=== PATIENT | female | born 1950 | race Caucasian/White ===

== ENCOUNTER 2017-02-22 17:06 | Inpatient (IN) | payer OTHER, BC ==
[~2017-02-22] VITALS: Ht 160 cm; Wt 55.0 kg
[~2017-02-22 17:06] MED LIST: LIALDA; MXZUNK
[2017-02-22] MEDS ORDERED: ONDANSETRON INJ 2 MG/ML 2 ML VIAL IV STA (17:24)
[2017-02-22] MEDS ORDERED: SODIUM CHLORIDE 0.9% 1000ML 1,000 ML IV STA ×3 (17:24→18:06)
[2017-02-22] MEDS ORDERED: MoRPHine SULFATE 4 MG/ML 1 ML CARP\\VIAL IV PRN (17:30)
[2017-02-22 17:36] LABS: BASO % 0.1 %; BASO ABS # 0.01 K/uL (0-0.2); COMPLETE YES; HEMATOCRIT 50.9 % (37-47); IG% 0.4 %; LYMPH % 6.3 %; LYMPH ABS # 0.82 K/uL (1.2-3.4); MEAN CELL VOLUME 89.9 fL (80-100); MEAN CORPUSCULAR HEMOGLOBIN 31.8 pg (25-34); MEAN CORPUSCULAR HGB CONC 35.4 g/dl (32-36); MEAN PLATELET VOLUME 9.7 fL (7.4-10.4); MONO % 4.9 %; NEUT % 88.3 %; PLATELET COUNT 208 K/uL (130-400); RED BLOOD COUNT 5.66 M/uL (4.2-5.4); WHITE BLOOD COUNT 13.04 K/uL (4.8-10.8)
[2017-02-22 17:47] LABS: PARTIAL THROMBOPLASTIN RATIO 0.9; PROTHROMBIN TIME (PATIENT) 10.5 SECONDS (9.0-12.0)
[2017-02-22 17:55] LABS: ALT/SGPT 24 U/L (12-78); AST/SGOT 15 U/L (15-37); BLOOD UREA NITROGEN 20 mg/dl (7-18); BUN/CREATININE RATIO 18.5 (10-20); CALCIUM 9.2 mg/dl (8.5-10.1); CARBON DIOXIDE 24 mmol/L (21-32); CHLORIDE 101 mmol/L (98-107); GLUCOSE 128 mg/dl (70-99); POTASSIUM 4.3 mmol/L (3.5-5.1); SODIUM 135 mmol/L (136-145)
[2017-02-22 18:00] LABS: ALKALINE PHOSPHATASE 75 U/L (45-117); CKMB/CK RATIO 5.7 (0-3.0)
--- NOTE | 2017-02-22 18:00 | EMERGENCY ROOM VISIT NOTE ---
History Report prepared by Tia: Elda Hoover Under the Supervision of: Karen UgarteO. First contact with patient: 17:11 Chief Complaint: VOMITING Stated Complaint: VOMITING History of Present Illness The patient is a 66 year old female who presents to the Emergency Room with complaints of intermittent vomiting beginning 2 days ago. The patient states that she ate nuts 2 nights ago and began to feel nauseous a few hours afterwards. She notes that she noticed a lump in her RLQ that is painful and has not gone away but is slightly smaller now. She complains of nausea, weakness , and body aches. She denies any chest pain, shortness of breath, and previous abdominal surgeries. The patient reports that she is on Augmentin and Prednisone for preventative pneumonia as she has a history. She notes that she has not been able to keep food down. Source of History: patient Onset: 2 days ago Position: other (global) Quality: other (vomiting) Timing: intermittent Associated Symptoms: + nausea, + weakness, No SOB, No chest pain Note: She complains of body aches. Review of Systems See HPI for pertinent positives & negatives. A total of 10 systems reviewed and were otherwise negative. Past Medical & Surgical Medical Problems: (1) Pneumonia Family History No pertinent family history stated. Social History Smoking Status: Current Every Day Smoker Marital Status: Housing Status: lives with significant other Occupation Status: employed Current/Historical Medications Scheduled Albuterol Hfa (Ventolin Hfa), 2-4 PUFFS INH Q6H Amoxicillin & Pot Clavulanate (Augmentin 875-125 mg), 1 TAB PO BID Atorvastatin (Lipitor), 10 MG PO DAILY Lisinopril (Prinivil), 20 MG PO BID Prednisone (Prednisone), 50 MG PO DAILY Spironolactone (Aldactone), 50 MG PO BID Allergies Coded Allergies: Fentanyl (Verified Allergy, Intermediate, rash due to the patch, 02/22/17) Nickel (Verified Allergy, Unknown, ., 02/22/17) Physical Exam Vital Signs Date Time Temp Pulse Resp B/P Pulse Ox O2 Delivery O2 Flow Rate FiO2 02/22/17 19:31 149/80 02/22/17 19:28 81 18 91 02/22/17 19:01 157/84 02/22/17 18:58 89 21 91 02/22/17 18:30 90 20 164/85 93 Room Air 02/22/17 17:42 88 02/22/17 17:08 36.7 104 18 123/90 97 Room Air Physical Exam GENERAL: Patient is awake, alert, very anxious appearing, appears to be in pain. EYES: The conjunctivae are clear. The pupils are round and reactive. EARS, NOSE, MOUTH AND THROAT: The nose is without any evidence of any deformity. Mucous membranes are moist tongue is midline NECK: The neck is nontender and supple. RESPIRATORY: Normal respiratory effort is noted there is no evidence of wheezing rhonchi or rales CARDIOVASCULAR: Regular rate and rhythm noted there no murmurs rubs or gallops normal S1 normal S2 GASTROINTESTINAL: Abdomen is moderately distended and diffusely tender, there was tenderness in the RLQ, there was a palpable mass in the right inguinal region which could be consistent with incarcerated hernia. MUSCULOSKELETAL/EXTREMITIES: There is no evidence of gross deformity full range of motion is noted in the hips and shoulders SKIN: There is no obvious evidence of any rash. There are no petechiae, pallor or cyanosis noted. NEUROLOGIC: Patient is awake alert and oriented x3 Medical Decision & Procedures ER Provider Diagnostic Interpretation: Radiology results as stated below per my review and radiologist interpretation: CT OF THE ABDOMEN AND PELVIS WITH CONTRAST FINDINGS: Lung bases are clear. Several hepatic cysts are noted. Marked right renal atrophy is noted, likely of the basis of renal artery stenosis. Several subcentimeter left renal lesions are too small to characterize. There is no left hydronephrosis. The spleen, adrenal glands and pancreas are unremarkable. There is extensive atherosclerotic plaque of the abdominal aorta with occlusion of the left common iliac artery with reconstitution at the level of the left external iliac artery. There is a small amount of abdominal and pelvic ascites due to a high grade small bowel obstruction. The proximal to mid small bowel is dilated and fluid-filled. A transition point is noted within the right lower quadrant at the site of a right groin hernia which contains a loop of small bowel. This favors a femoral hernia as the hernia sac has mass effect upon the right femoral vein. There is a small amount of ascites within the hernia sac. The appendix may extend into the hernia sac as well. There are a few appendicoliths without evidence for acute appendicitis. There is no pneumatosis, free air or portal venous gas. Submucosal fat deposition within the distal colon and rectum suggests chronic colitis. IMPRESSION: 1. High-grade small bowel obstruction with transition point within the right lower quadrant due to a loop/knuckle of small bowel within a right femoral hernia. Small amount of associated ascites. A portion of the appendix may also extend into the right femoral hernia sac. No evidence for acute appendicitis. 2. Marked right renal atrophy, likely on the basis of renal artery stenosis. Extensive atherosclerotic plaque of the abdominal aorta with chronic occlusion of the left common iliac artery with reconstitution at the level of the left external iliac artery. Electronically signed by: Juan Walsh M.D. 02/22/2017 6:29 PM Dictated Date/Time: 02/22/2017 6:11 PM CHEST ONE VIEW PORTABLE FINDINGS: There is no pneumothorax or pleural effusion. No consolidation is identified to suggest pneumonia. Minimal right basilar opacity may reflect atelectasis. There is no evidence of pulmonary edema. Cardiomediastinal silhouette is normal. IMPRESSION: No acute cardiopulmonary findings. Electronically signed by: Juan Walsh M.D. 02/22/2017 6:05 PM Dictated Date/Time: 02/22/2017 6:03 PM Laboratory Results 02/22/17 17:25 Red Blood Count 5.66, Mean Corpuscular Volume 89.9, Mean Corpuscular Hemoglobin 31.8, Mean Corpuscular Hemoglobin Concent 35.4, Mean Platelet Volume 9.7, Neutrophils (%) (Auto) 88.3, Lymphocytes (%) (Auto) 6.3, Monocytes (%) (Auto) 4.9, Eosinophils (%) (Auto) 0.0, Basophils (%) (Auto) 0.1, Neutrophils # (Auto) 11.52, Lymphocytes # (Auto) 0.82, Monocytes # (Auto) 0.64, Eosinophils # (Auto) 0.00, Basophils # (Auto) 0.01 02/22/17 17:25 Test 02/22/17 17:25 02/22/17 17:40 White Blood Count 13.04 K/uL (4.8-10.8) Red Blood Count 5.66 M/uL (4.2-5.4) Hemoglobin 18.0 g/dL (12.0-16.0) Hematocrit 50.9 % (37-47) Mean Corpuscular Volume 89.9 fL (80-100) Mean Corpuscular Hemoglobin 31.8 pg (25-34) Mean Corpuscular Hemoglobin Concent 35.4 g/dl (32-36) Platelet Count 208 K/uL (130-400) Mean Platelet Volume 9.7 fL (7.4-10.4) Neutrophils (%) (Auto) 88.3 % Lymphocytes (%) (Auto) 6.3 % Monocytes (%) (Auto) 4.9 % Eosinophils (%) (Auto) 0.0 % Basophils (%) (Auto) 0.1 % Neutrophils # (Auto) 11.52 K/uL (1.4-6.5) Lymphocytes # (Auto) 0.82 K/uL (1.2-3.4) Monocytes # (Auto) 0.64 K/uL (0.11-0.59) Eosinophils # (Auto) 0.00 K/uL (0-0.5) Basophils # (Auto) 0.01 K/uL (0-0.2) RDW Standard Deviation 43.5 fL (36.4-46.3) RDW Coefficient of Variation 13.2 % (11.5-14.5) Immature Granulocyte % (Auto) 0.4 % Immature Granulocyte # (Auto) 0.05 K/uL (0.00-0.02) Prothrombin Time 10.5 SECONDS (9.0-12.0) Prothromb Time International Ratio 1.0 (0.9-1.1) Activated Partial Thromboplast Time 24.5 SECONDS (21.0-31.0) Partial Thromboplastin Ratio 0.9 Anion Gap 10.0 mmol/L (3-11) Est Creatinine Clear Calc Drug Dose 41.6 ml/min Estimated GFR () 60.6 Estimated GFR (Non- 52.3 BUN/Creatinine Ratio 18.5 (10-20) Calcium Level 9.2 mg/dl (8.5-10.1) Total Bilirubin 0.5 mg/dl (0.2-1) Direct Bilirubin < 0.1 mg/dl (0-0.2) Aspartate Amino Transf (AST/SGOT) 15 U/L (15-37) Alanine Aminotransferase (ALT/SGPT) 24 U/L (12-78) Alkaline Phosphatase 75 U/L (45-117) Total Creatine Kinase 49 U/L (26-192) Creatine Kinase MB 2.8 ng/ml (0.5-3.6) Creatine Kinase MB Ratio 5.7 (0-3.0) Troponin I < 0.015 ng/ml (0-0.045) Total Protein 8.6 gm/dl (6.4-8.2) Albumin 3.6 gm/dl (3.4-5.0) Lipase 186 U/L (73-393) Bedside Lactic Acid Venous 2.01 mmol/L (0.90-1.70) Laboratory results per my review. Medications Administered Medications (Trade) Dose Ordered Sig/Nile Route Start Time Stop Time Status Last Admin Dose Admin Sodium Chloride (Nss 1000ml) 1,000 ml @ 999 mls/hr Q1H1M STAT IV 02/22/17 17:24 02/22/17 18:24 DC 02/22/17 17:39 999 MLS/HR Ondansetron HCl (Zofran Inj) 4 mg NOW STAT IV 02/22/17 17:24 02/22/17 17:26 DC 02/22/17 17:40 4 MG Morphine Sulfate 4 mg 4 mg Q15M PRN IV 02/22/17 17:30 03/08/17 17:29 02/22/17 17:40 4 MG Sodium Chloride 1,000 ml @ 999 mls/hr Q1H1M STAT IV 02/22/17 18:06 02/22/17 19:06 DC 02/22/17 18:28 999 MLS/HR Sodium Chloride (Nss 1000ml) 1,000 ml @ 250 mls/hr Q4H STAT IV 02/22/17 18:06 02/22/17 22:05 02/22/17 19:19 250 MLS/HR Piperacillin Sod/ Tazobactam Sod (Zosyn Iv) 4.5 gm NOW STAT IV 02/22/17 18:07 02/22/17 18:08 DC 02/22/17 18:27 4.5 GM Cefoxitin Sodium (Mefoxin 2000mg/ 60 ml D5W) 2,000 mg NOW STAT IV 02/22/17 18:58 02/22/17 18:59 DC 02/22/17 19:19 2,000 MG ECG Indication: abdominal pain Rate (beats per minute): 87 Rhythm: normal sinus Findings: no ectopy, other (no acute ST segment abnormalities) Comparison ECG Date: 05/27/09 Change: no significant change ED Course 1711: The patient was evaluated in room C7. A complete history and physical examination were performed. 1724: Zofran Inj 4mg IV, NSS 1,000 ml @ 999 mls/hr IV. 1730: Morphine Sulfate 4mg PRN IV pain. 1806: NSS 1,000 ml @ 999 mls/hr IV, NSS 1,000 ml @ 250 mls/hr IV, Zosyn IV 4.5gm IV. 1815: I discussed the patient's case with Dr. Shaw. He would like me to call him back after the CT is back. 1841: I discussed the patient's case with Dr. Shaw. The patient will be evaluated for further management and will be going to the operating room. Medical Decision Differential diagnosis: Etiologies such as appendicitis, diverticulitis, PUD, biliary pathology, UTI, pancreatitis, obstruction, mesenteric ischemia, aortic pathology, infections, inflammatory bowel disease, renal colic, as well as others were entertained. Medication Reconciliation: I attest that I have personally reviewed the patient' s current medications list. The patient is a 66-year-old female who presented to the emergency department for an evaluation of right lower quadrant abdominal pain nausea and vomiting. The patient has been suffering with a cough over the last week approximately. She was started on antibiotic because she has a history of developing pneumonia. The patient states that on Wednesday evening she was coughing and felt an egg shaped lump in her right groin. On physical exam this has a hernia. The patient's physical exam to assisted of very significant abdominal tenderness. I was concerned that this could represent an incarcerated right inguinal hernia with resultant small bowel obstruction. The patient's CT appeared to show signs of small bowel obstruction with loops of bowel in the right femoral canal. I discussed this CT with the on-call general surgeon. He is agreed to evaluate the patient in the emergency department for further management and disposition. The patient was treated with IV fluids IV pain medicine and IV antiemetics. She was also given IV antibiotics. She was reevaluated multiple times. When her pain was well controlled I attempted to reduce the hernia again. She felt that it partially reduced but I could still feel a bulge in the right inguinal region. The patient was evaluated by the on- call general surgeon. She was felt to be a good candidate for surgical management. Consults Time Called: 1809 Consulting Physician: Dr. Shaw - Surgery Returned Call: 1814 1814: I discussed the patient's case with Dr. Shaw. He would like me to call him back after the CT is back. 1840: I discussed the patient's case with Dr. Shaw. The patient will be evaluated for further management and will be going to the operating room. Impression Primary Impression: Incarcerated right inguinal hernia Additional Impressions: Small bowel obstruction Nausea & vomiting Scribe Attestation The scribe's documentation has been prepared under my direction and personally reviewed by me in its entirety. I confirm that the note above accurately reflects all work, treatment, procedures, and medical decision making performed by me. Departure Information Dispostion Being Evaluated By Surgeon Referrals Michael Meza, D.OShaheed (PCP) Patient Instructions My [facility] Problem Qualifiers Additional Impressions: Nausea & vomiting Vomiting type: unspecified Vomiting Intractability: non-intractable Qualified Codes: R11.2 - Nausea with vomiting, unspecified
--- NOTE | 2017-02-22 18:06 | DIAGNOSTIC IMAGING REPORT ---
CHEST ONE VIEW PORTABLE CLINICAL HISTORY: Abdominal pain and vomiting. COMPARISON STUDY: Chest radiograph May 27, 2009. FINDINGS: There is no pneumothorax or pleural effusion. No consolidation is identified to suggest pneumonia. Minimal right basilar opacity may reflect atelectasis. There is no evidence of pulmonary edema. Cardiomediastinal silhouette is normal. IMPRESSION: No acute cardiopulmonary findings. Electronically signed by: Juan Walsh M.D. 02/22/2017 6:05 PM Dictated Date/Time: 02/22/2017 6:03 PM
[2017-02-22] MEDS ORDERED: PIPERACILLIN/TAZOBACTAM 4.5 GM/100ML D5W IV STA (18:07)
[2017-02-22] MEDS ORDERED: OPTIRAY 320 IV PRN (18:15)
[2017-02-22] MEDS ORDERED: ATOR10TA82 PO (18:16)
[2017-02-22] MEDS ORDERED: PRED50TA PO (18:16)
[2017-02-22] MEDS ORDERED: SPIR50TA2 PO (18:16)
[2017-02-22] MEDS ORDERED: LISI20TA3 PO (18:16)
[2017-02-22] MEDS ORDERED: AMOX875T PO (18:16)
[2017-02-22] MEDS ORDERED: VNTHFA/IN INH (18:16)
--- NOTE | 2017-02-22 18:30 | DIAGNOSTIC IMAGING REPORT ---
CT OF THE ABDOMEN AND PELVIS WITH CONTRAST CLINICAL HISTORY: Vomiting and right lower quadrant pain. Possible hernia. COMPARISON STUDY: CT of the abdomen and pelvis May 27, 2009. TECHNIQUE: Following IV administration of 116 mL of Optiray-320, axial images of the abdomen and pelvis were obtained from the lung bases to the proximal femurs. Images were reviewed in the axial, sagittal, and coronal planes. IV contrast was administered without complication. CT DOSE: 248.39 mGy.cm FINDINGS: Lung bases are clear. Several hepatic cysts are noted. Marked right renal atrophy is noted, likely of the basis of renal artery stenosis. Several subcentimeter left renal lesions are too small to characterize. There is no left hydronephrosis. The spleen, adrenal glands and pancreas are unremarkable. There is extensive atherosclerotic plaque of the abdominal aorta with occlusion of the left common iliac artery with reconstitution at the level of the left external iliac artery. There is a small amount of abdominal and pelvic ascites due to a high grade small bowel obstruction. The proximal to mid small bowel is dilated and fluid-filled. A transition point is noted within the right lower quadrant at the site of a right groin hernia which contains a loop of small bowel. This favors a femoral hernia as the hernia sac has mass effect upon the right femoral vein. There is a small amount of ascites within the hernia sac. The appendix may extend into the hernia sac as well. There are a few appendicoliths without evidence for acute appendicitis. There is no pneumatosis, free air or portal venous gas. Submucosal fat deposition within the distal colon and rectum suggests chronic colitis. IMPRESSION: 1. High-grade small bowel obstruction with transition point within the right lower quadrant due to a loop/knuckle of small bowel within a right femoral hernia. Small amount of associated ascites. A portion of the appendix may also extend into the right femoral hernia sac. No evidence for acute appendicitis. 2. Marked right renal atrophy, likely on the basis of renal artery stenosis. Extensive atherosclerotic plaque of the abdominal aorta with chronic occlusion of the left common iliac artery with reconstitution at the level of the left external iliac artery. Electronically signed by: Juan Walsh M.D. 02/22/2017 6:29 PM Dictated Date/Time: 02/22/2017 6:11 PM
[2017-02-22] MEDS ORDERED: CEFOXITIN SOD 2 GM VIAL IV STA (18:53)
[2017-02-22] MEDS ORDERED: CEFOXITIN 2000MG/60 ML D5W IV STA (18:58)
--- NOTE | 2017-02-22 19:04 | History & Physical Bridge Note ---
H&P Re-Evaluation Bridge Note: I have examined the patient, reviewed the History & Physical and in the interval since the performance of the History & Physical I have noted the following changes of clinical significance: No changes noted h and p dictated stat [id number] at 7 pm confirmation number [id number], dx incarcerated right fem hernia to OR for repair possible bowel resection
[2017-02-22] MEDS ORDERED: ACETAMINOPHEN 1000 MG/100 ML IV IV ONE (19:15)
[2017-02-22] MEDS ORDERED: EpHEDrine SULFATE INJ 50 MG/ML AMP IV PRN (19:15)
[2017-02-22] MEDS ORDERED: ATROPINE SULFATE 0.1 MG/ML 5ML SYR IV PRN (19:15)
[2017-02-22] MEDS ORDERED: HYDROmorphone INJ 1 MG/ML SYR IV PRN (19:15)
[2017-02-22] MEDS ORDERED: ONDANSETRON INJ 2 MG/ML 2 ML VIAL IV PRN (19:15)
[2017-02-22] MEDS ORDERED: SUCCINYLCHOLINE CHLORIDE 20 MG/ML 10 ML VIAL IV ONE (19:24)
[2017-02-22] MEDS ORDERED: PROPOFOL IV EMULSION 10 MG/ML 20 ML VIAL IV ONE (19:24)
[2017-02-22] MEDS ORDERED: ONDANSETRON INJ 2 MG/ML 2 ML VIAL ONE (19:24)
[2017-02-22] MEDS ORDERED: NEOSTIGMINE METHYLSULFATE 5 MG/5 ML SYR ONE (19:24)
[2017-02-22] MEDS ORDERED: ROCURONIUM BROMIDE 10 MG/ML 5 ML VIAL ONE (19:24)
[2017-02-22] MEDS ORDERED: MIDAZOLAM HCL 1 MG/ML 2ML VIAL ONE (19:24)
[2017-02-22] MEDS ORDERED: GLYCOPYRROLATE INJ 0.2 MG/ML VIAL ONE (19:24)
[2017-02-22] MEDS ORDERED: DEXAMETHASONE SOD INJ 4 MG/ML VIAL ONE (19:24)
[2017-02-22] MEDS ORDERED: HYDROmorphone INJ 2 MG/ML SYR/VIAL ONE (19:25)
[2017-02-22] MEDS ORDERED: BACITRACIN 50000 UNIT VIAL ONE (19:30)
[2017-02-22] MEDS ORDERED: BUPIVACAINE 0.5 % 5 MG/1 ML MPF 30ML VIAL ONE (19:30)
--- NOTE | 2017-02-22 19:34 | HISTORY & PHYSICAL EXAMINATION ---
DATE OF ADMISSION: 02/22/2017 Seen in the Emergency Room at 6:45 in the evening. SUMMARY: I was called by Dr. Perez approximately 25 minutes ago when the patient had a lump in her right groin area consistent after he finally got the reading from the CAT scan with a bowel obstruction secondary to incarcerated hernia. The patient apparently has had a problem with coughing and repeat bouts of pneumonia and she has been prophylactically taken some steroid and amoxicillin given by Dr. Lane Bingham when she has some flare ups and she had this last week, but 48 hours ago with a cough and has noticed a lump in the right groin area and since that time she has had excruciating pain, really not able to take anything down for the last 48 hours with associated nausea and vomiting. She thought it would go away, therefore, she did not seek medical attention until she came here to the Emergency Room at about 05:08 where her vitals showed a temperature of 36.7, pulse 104, respirations 18, blood pressure 123/80. The last vitals 20 minutes ago showed her pulse 90, respirations 20, blood pressure 164/85, O2 sats 93. Her past medical history other than the pulmonary history, which is longstanding infection about 15 years ago, she spent 2 weeks here in the hospital on a respirator to get over that issue and she has been fairly free since that time. ALLERGIES: SHE IS ALLERGIC TO NICKEL. MEDICATIONS AT HOME: Include prednisone and Amoxil on a p.r.n. basis. She takes lisinopril, and Lipitor, and she takes Ventolin inhaler at times. She does take also spironolactone 50 mg tablets b.i.d. PAST SURGICAL HISTORY: Unremarkable. She denies any previous surgery. She denies any chest pain or any shortness of breath other than when she has these exacerbation of her COPD. PHYSICAL EXAMINATION: GENERAL: Today at this time shows Melissa obviously dry, in no acute distress. Her is at his bedside. HEAD: Normocephalic. EYES: PERRLA. The sclerae is nonicteric. NECK: There is no cervical lymphadenopathy. Oropharyngeal area was a little bit dry. Tongue scaling. No carotid bruits. No cervical masses. HEART: Normal sinus rhythm. LUNGS: Clear. ABDOMEN: Softly distended. She has a lump in the right groin consistent with a likely incarcerated femoral hernia. It is not red. There is no obvious edema. EXTREMITIES: Grossly normal. The CAT scan findings showed what appears to be a loop of bowel and knuckle stuck in the right lower quadrant consistent with incarcerated femoral hernia. LABORATORY: Showed a white count of 13.04, hemoglobin is 18 and she has a significant left shift. Her chemistries showed a BUN 20, creatinine 1.0. At this point, we will proceed with an open repair of right inguinal hernia. There may be appendix and there does not seem to be involved in an inflammatory process. I told the patient the possibility that this is going on for 48 hours and may need a resection of the bowel depending on the characteristics once we get in there. Lactic acid level is 2.01. Risks and complications of surgery were explained to the patient includes bleeding, infection, failure to heal. We will proceed accordingly. The patient has been basically n.p.o. for the last 48 hours. SIERRA
--- NOTE | 2017-02-22 21:52 | [facility] Post Operative Brief Note ---
Immediate Operative Summary Operative Date February 22, 2017. Pre-Operative Diagnosis Incarcerated Right Femoral Hernia Post-Operative Diagnosis Incarcerated hernia contents appendix(DeGarengeot hernia) Procedure(s) Performed repair inc fem hernia(marlex mesh plug) and appendectomy Surgeon Dr. Kash Shwa [employer] Executive Surgeon(s) none Estimated Blood Loss 10mL Findings incarcerated appendix with discolored tip in hernia wall ? ischemia in femoral hernia Specimens B. Hernia Sac C. Appendix
[2017-02-22] MEDS ORDERED: LABETALOL HCL IV 5 MG/ML 20ML IV PRN (22:00)
[2017-02-22] MEDS ORDERED: ALBUTEROL HFA 8 GM INHALER INH PRN (22:00)
[2017-02-22] MEDS ORDERED: OXYCODONE/ACETAMINOPHEN 5-325 TAB PO PRN (22:00)
--- NOTE | 2017-02-22 22:40 | Anesthesiology Progress Note ---
Anesthesia Post Op Note Date & Time February 22, 2017 at 22:41 Vital Signs Pain Intensity: 1 Vital Signs Past 12 Hours Date Time Temp Pulse Resp B/P Pulse Ox O2 Delivery O2 Flow Rate FiO2 02/22/17 22:35 36.5 76 16 157/85 97 Nasal Cannula 4 02/22/17 22:20 75 20 152/86 97 Nasal Cannula 4 02/22/17 22:10 75 20 160/95 97 Mask 10 02/22/17 22:00 80 20 177/90 99 Mask 10 02/22/17 21:51 36.5 99 20 228/120 98 Mask 10 02/22/17 19:31 149/80 02/22/17 19:28 81 18 91 02/22/17 19:01 157/84 02/22/17 18:58 89 21 91 02/22/17 18:30 90 20 164/85 93 Room Air 02/22/17 17:42 88 02/22/17 17:08 36.7 104 18 123/90 97 Room Air Notes Mental Status: alert / awake / arousable, participated in evaluation Pt Amnestic to Procedure: Yes Nausea / Vomiting: adequately controlled Pain: adequately controlled Airway Patency, RR, SpO2: stable & adequate BP & HR: stable & adequate Hydration State: stable & adequate Anesthetic Complications: no major complications apparent
[2017-02-22 23:15] VITALS: BP 149/82; PULSE 66; TEMP 36.4; O2SAT 93
[2017-02-22 23:25] VITALS: Ht 160 cm; Wt 55.0 kg
[2017-02-22] MEDS: NSS + 20MEQ KCL 1000ML 1,000 ML IV SCH (23:28)
--- NOTE | 2017-02-22 23:33 | OPERATIVE REPORT ---
DATE OF OPERATION: 02/22/2017 SURGEON: Dr. Shaw. PREOPERATIVE DIAGNOSIS: Incarcerated right femoral hernia. 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 PROCEDURE: Repair of right femoral hernia with Marlex mesh plug and appendectomy. SUMMARY: The patient was brought into the operating room theater. The right lower quadrant was prepped with Betadine solution and properly draped. I made an incision parallel to the inguinal ligament, deepened through subcutaneous tissue, went on to the external oblique where we down through the shelving portion, we could see the incarcerated femoral tissue. There was quite a significant amount of edema around the area. At this point, I elected to open it from the top and opening the external oblique fascia down to the external ring, identifying the nerve and avoiding it. At this point, once we opened the fascia, I could see that the hernia was significantly stuck into the femoral canal, very hard to reduce, and there was significant amount of scar tissue. We freed it from surrounding area which showed some fatty necrosis. Finally, I divided pretty much of the shelving portion of the inguinal ligament to reduce this significant scar tissue away from it and identified the opening in the femoral canal. The opening was small. At this point, once we had freed this up circumferentially, I opened up the hernial sac and identified that the content was the appendix. The tip of the appendix seemed to be adherent to the wall but actually it incarcerated on that area and appeared to be ischemic in some area, was bluish in color, but it was not perforated. We worked the appendix back up toward the femoral canal, and actually as we pulled it up, I was unable to really deliver it completely, therefore, I enlarged the femoral canal a little bit so I could identify the cecum. At this point, I doubly ligated the appendix with 2-0 silk suture proximally, bovied the mucosa, and distally I ligated with 2-0 silk. We divided the appendix, divided the mesoappendix, and then the tip of the appendix, the mucosa was bovied and inverted over pursestring of 3-0 silk into the cecal area. Then, we removed the rest including the hernial sac. Once this had been completed, I closed the remaining of the hernial sac with a 3-0 silk suture and tied. We returned this down into the femoral canal. At this point, I elected to close this using a Fabienne closure, bringing pretty much of transversus fascia down to the symphysis pubis and the Nilo's ligament, with interrupted 2-0 Prolene suture. The tissue was very friable. I was not able to identify any good transition stitch and I felt that the weakness there in the most lateral aspect toward the vein was very thin tissue, as much as I did not want to use this, so we used plug of Marlex, cut in a circular fashion, and placed it as a plug in fem canal area. I sutured the tip of the Marlex to the transversalis fascia and Nilo's ligament to keep it from migrating. Then, we continued the repair after I had divided the round ligament to invert toward the internal ring with 3-0 nylon suture. I then closed the remaining, I approximated the shelving portion of the inguinal ligament down onto as best as I could to the symphysis pubis, down toward the remaining tissue on top of the Nilo's ligament and around the subcutaneous tissue. The repair appeared to be solid . Subcutaneous tissue was closed with 2-0 Dexon and anne for skin edges. Dressing was applied. Procedure was tolerated well. The patient was taken to recovery in good condition. ADDENDUM The patient by CAT scan had a significant amount of small-bowel distention, certainly what I saw it was hard to explain that this was the cause of the obstruction, although she did state when the hernia initially started, it was quite larger than normally and had reduced somewhat. When I opened the hernial sac, there was no evidence of any cloudy fluid or bluish fluid to explain possibility of an ischemia. I attest to the content of the Intraoperative Record and any orders documented therein. Any exceptions are noted below. SIERRA
[2017-02-22 23:45] VITALS: BP 132/75; PULSE 64; TEMP 36.5; O2SAT 96
[2017-02-23] VITALS (11 sets, daily range): BP systolic 111–148; BP diastolic 65–84; PULSE 66–95; TEMP 36.2–36.7; O2SAT 85–97
[2017-02-23] MEDS: CEFOXITIN IV 2,000 MG in DEXTROSE 5% 50ML 50 ML IV SCH ×2 (00:54→06:26)
[2017-02-23] MEDS: ONDANSETRON INJ 2 MG/ML 2 ML VIAL IV PRN ×2 (03:53→14:31)
[2017-02-23] MEDS: HYDROmorphone INJ 1 MG/ML SYR IV PRN ×4 (04:02→23:34)
[2017-02-23] MEDS: HEPARIN SOD 5000 UNIT/0.5 ML CARP SQ SCH ×3 (06:25→21:24)
[2017-02-23] MEDS: NSS + 20MEQ KCL 1000ML 1,000 ML IV SCH ×3 (07:51→23:11)
[2017-02-23] MEDS: ATORVASTATIN 10 MG TAB PO SCH (08:51)
[2017-02-23] MEDS: LISINOPRIL 20 MG TAB PO SCH ×2 (09:00→21:00)
[2017-02-23] MEDS ORDERED: SPIRONOLACTONE 100 MG TAB PO SCH (09:00)
--- NOTE | 2017-02-23 09:36 | DIAGNOSTIC IMAGING REPORT ---
ABDOMEN 2 VIEWS CLINICAL HISTORY: Bowel obstruction. Incarcerated right inguinal hernia. COMPARISON STUDY: No previous studies for comparison. FINDINGS: Surgical clips project over the right inguinal region. There are multiple dilated small bowel loops measuring up to 5.7 cm in diameter. Nasogastric tube is visualized within the stomach. There is a paucity of colonic gas. There are multiple small bowel air-fluid levels on the decubitus view. No free air is visualized. IMPRESSION: 1. Interval placement of a nasogastric tube 2. Small bowel obstructive pattern. No evidence of free intraperitoneal air. Electronically signed by: Nima Byrnes M.D. 02/23/2017 9:35 AM Dictated Date/Time: 02/23/2017 9:32 AM
[2017-02-23] MEDS ORDERED: PROMETHAZINE HCL INJ 12.5 MG in SODIUM CHLORIDE 0.9% 50ML 50 ML IV PRN (11:45)
[2017-02-23] MEDS ORDERED: NURSING VERBAL MED ORDER ONE (12:00)
--- NOTE | 2017-02-23 12:08 | Surgery Progress Note ---
Surgery Progress Note Date of Service February 23, 2017. Subjective Post OP Day: 1 + nausea, No bowel movement, No flatus Patient sitting up in bed, NG tube in place- Reporting mild abdominal pain with nausea. Denies bowel movement. States that she might be getting a little bit hungry. Objective Vital Signs: Date Time Temp Pulse Resp B/P Pulse Ox O2 Delivery O2 Flow Rate FiO2 02/23/17 11:45 36.2 84 24 121/75 93 Room Air 02/23/17 08:14 95 Nasal Cannula 2.0 02/23/17 08:10 Nasal Cannula 1.0 02/23/17 08:05 36.6 80 20 124/78 95 Nasal Cannula 2.0 02/23/17 04:05 73 16 116/72 94 Nasal Cannula 2.0 02/23/17 01:45 36.5 66 16 137/76 97 Nasal Cannula 2.0 02/23/17 00:45 36.6 71 16 121/68 96 Nasal Cannula 3.0 02/22/17 23:45 36.5 64 16 132/75 96 Nasal Cannula 3.0 02/22/17 23:25 Nasal Cannula 3.0 02/22/17 23:25 Nasal Cannula 3.0 02/22/17 23:25 Nasal Cannula 3.0 02/22/17 23:15 36.4 66 16 149/82 93 Nasal Cannula 3.0 02/22/17 22:35 36.5 76 16 157/85 97 Nasal Cannula 4 02/22/17 22:20 75 20 152/86 97 Nasal Cannula 4 02/22/17 22:10 75 20 160/95 97 Mask 10 02/22/17 22:00 80 20 177/90 99 Mask 10 02/22/17 21:51 36.5 99 20 228/120 98 Mask 10 02/22/17 19:31 149/80 02/22/17 19:28 81 18 91 02/22/17 19:01 157/84 02/22/17 18:58 89 21 91 02/22/17 18:30 90 20 164/85 93 Room Air 02/22/17 17:42 88 02/22/17 17:08 36.7 104 18 123/90 97 Room Air Physical Exam: nasogastric drainage General Appearance: WD/WN, no apparent distress Abdomen: non tender, soft (still slightly distended. ), + pertinent finding Incision(s): intact (dressing still in place from surgery) Laboratory Results: Results Past 24 Hours Test 02/22/17 17:25 02/22/17 17:40 Range/Units White Blood Count 13.04 4.8-10.8 K/uL Red Blood Count 5.66 4.2-5.4 M/uL Hemoglobin 18.0 12.0-16.0 g/dL Hematocrit 50.9 37-47 % Mean Corpuscular Volume 89.9 80-100 fL Mean Corpuscular Hemoglobin 31.8 25-34 pg Mean Corpuscular Hemoglobin Concent 35.4 32-36 g/dl Platelet Count 208 130-400 K/uL Mean Platelet Volume 9.7 7.4-10.4 fL Neutrophils (%) (Auto) 88.3 % Lymphocytes (%) (Auto) 6.3 % Monocytes (%) (Auto) 4.9 % Eosinophils (%) (Auto) 0.0 % Basophils (%) (Auto) 0.1 % Neutrophils # (Auto) 11.52 1.4-6.5 K/uL Lymphocytes # (Auto) 0.82 1.2-3.4 K/uL Monocytes # (Auto) 0.64 0.11-0.59 K/uL Eosinophils # (Auto) 0.00 0-0.5 K/uL Basophils # (Auto) 0.01 0-0.2 K/uL RDW Standard Deviation 43.5 36.4-46.3 fL RDW Coefficient of Variation 13.2 11.5-14.5 % Immature Granulocyte % (Auto) 0.4 % Immature Granulocyte # (Auto) 0.05 0.00-0.02 K/uL Prothrombin Time 10.5 9.0-12.0 SECONDS Prothromb Time International Ratio 1.0 0.9-1.1 Activated Partial Thromboplast Time 24.5 21.0-31.0 SECONDS Partial Thromboplastin Ratio 0.9 Sodium Level 135 136-145 mmol/L Potassium Level 4.3 3.5-5.1 mmol/L Chloride Level 101 98-107 mmol/L Carbon Dioxide Level 24 21-32 mmol/L Anion Gap 10.0 3-11 mmol/L Blood Urea Nitrogen 20 7-18 mg/dl Creatinine 1.10 0.60-1.20 mg/dl Est Creatinine Clear Calc Drug Dose 41.6 ml/min Estimated GFR () 60.6 Estimated GFR (Non- 52.3 BUN/Creatinine Ratio 18.5 10-20 Random Glucose 128 70-99 mg/dl Calcium Level 9.2 8.5-10.1 mg/dl Total Bilirubin 0.5 0.2-1 mg/dl Direct Bilirubin < 0.1 0-0.2 mg/dl Aspartate Amino Transf (AST/SGOT) 15 15-37 U/L Alanine Aminotransferase (ALT/SGPT) 24 12-78 U/L Alkaline Phosphatase 75 45-117 U/L Total Creatine Kinase 49 26-192 U/L Creatine Kinase MB 2.8 0.5-3.6 ng/ml Creatine Kinase MB Ratio 5.7 0-3.0 Troponin I < 0.015 0-0.045 ng/ml Total Protein 8.6 6.4-8.2 gm/dl Albumin 3.6 3.4-5.0 gm/dl Lipase 186 73-393 U/L Bedside Lactic Acid Venous 2.01 0.90-1.70 mmol/L Microbiology Results 02/22/17 Urine Culture - Preliminary, Resulted NO GROWTH - LESS THAN 1,000 COLONIES/... ABDOMEN 2 VIEWS CLINICAL HISTORY: Bowel obstruction. Incarcerated right inguinal hernia. COMPARISON STUDY: No previous studies for comparison. FINDINGS: Surgical clips project over the right inguinal region. There are multiple dilated small bowel loops measuring up to 5.7 cm in diameter. Nasogastric tube is visualized within the stomach. There is a paucity of colonic gas. There are multiple small bowel air-fluid levels on the decubitus view. No free air is visualized. IMPRESSION: 1. Interval placement of a nasogastric tube 2. Small bowel obstructive pattern. No evidence of free intraperitoneal air. Electronically signed by: Nima Byrnes M.D. 02/23/2017 9:35 AM Dictated Date/Time: 02/23/2017 9:32 AM Assessment & Plan POD #1 s/p Repair inc fem hernia(marlex mesh plug) and appendectomy. Reviewed Abdomen 2 views. Continue NG tube. Will add Phenergan for nausea. Continue NPO, except ice chips and sips. Patient is slowly improving- will continue to monitor.
[2017-02-23] MEDS ORDERED: SPIRONOLACTONE 25 MG TAB PO SCH (21:00)
[2017-02-24] VITALS (9 sets, daily range): BP systolic 125–146; BP diastolic 66–82; PULSE 88–114; TEMP 36.1–37.1; O2SAT 93–97
[2017-02-24] MEDS: HEPARIN SOD 5000 UNIT/0.5 ML CARP SQ SCH (05:49)
[2017-02-24] MEDS: NSS + 20MEQ KCL 1000ML 1,000 ML IV SCH ×3 (06:20→23:32)
--- NOTE | 2017-02-24 08:03 | DIAGNOSTIC IMAGING REPORT ---
CHEST AND ABDOMEN 2 VIEWS HISTORY: Bowel obstruction. Follow-up. COMPARISON: Abdomen and pelvis CT 02/22/2017. Abdominal series 02/23/2017. FINDINGS: The heart is normal in size. Mild diffuse interstitial thickening. Trace bilateral pleural effusions. Nasogastric tube terminates in the proximal stomach. Multiple distended gas and fluid-filled loops of small bowel seen throughout the abdomen. These have slightly improved in the interval. These measure up to 4.4 cm. No pneumoperitoneum. No pneumatosis. Skin anne within the right groin. IMPRESSION: 1. Slight improvement in the distended loops of small bowel consistent with a small bowel obstruction. 2. Nasogastric tube terminates in the proximal stomach, unchanged. This could be advanced by approximately 5 cm. Electronically signed by: Darvin Schultz M.D. 02/24/2017 8:02 AM Dictated Date/Time: 02/24/2017 8:00 AM
[2017-02-24] MEDS ORDERED: METHYLPREDNISOLONE IV 40 MG in SYRINGE 0 ML IV ONE (08:30)
[2017-02-24] MEDS ORDERED: SPIRONOLACTONE 25 MG TAB PO SCH (09:00)
--- NOTE | 2017-02-24 09:05 | Medical Consult ---
Consultation Date of Consultation: February 24, 2017 at approximately 09:00 . Attending Physician: Kash Shaw M.D. Reason for Consultation: Medical management . History of Present Illness 66-year-old female followed by Dr. Michael Meza. History of COPD, hypertension, and other problems noted below. Recently took a course of amoxicillin/clavulanic acid and prednisone for an apparent tracheobronchitis. Presented to the ED on 02/22 with abdominal pain and found to have an incarcerated right femoral hernia. Laparotomy with repair of the femoral hernia and incidental appendectomy performed on the day of admission. This morning the patient was noted be very tachypnea and dyspneic after returning to the floor from radiology. No fever. Occasional nonproductive cough. No chest pain. She remains NPO postoperatively and so has a nasogastric tube. Not passing any flatus or stool. No urinary symptoms. . Past Medical/Surgical History Chronic Medical Problems: (1) Carotid arterial disease Status: Chronic (2) COPD (chronic obstructive pulmonary disease) Status: Chronic (3) History of ulcerative colitis Status: Chronic (4) Hypertension Status: Chronic (5) Osteoporosis Status: Chronic (6) Tobacco use Status: Chronic . Family History SISTER Leukemia SISTER Myocardial infarction Social History Smoking Status: Current Every Day Smoker Alcohol Use: occasionally Marital Status: Housing Status: lives with significant other Occupation Status: employed Allergies Coded Allergies: Fentanyl (Verified Allergy, Intermediate, rash due to the patch, 02/22/17) Nickel (Verified Allergy, Unknown, ., 02/22/17) Home Medications Reported Home Medications Medications Dose Route/Sig Max Daily Dose Days Date Category Dose Instructions Prednisone 50 Mg Tab 50 Mg PO DAILY 4 02/22/17 Reported Pt states they are to take 50mg for 5 days, 40mg for 5 days, 30mg for 5 days, 20mg for 5 days, 10mg for 5 days. Augmentin 875-125 mg (Amoxicillin & Pot Clavulanate) 1 Tab Tab 1 Tab PO BID 02/22/17 Reported Ventolin Hfa (Albuterol) 200 Puffs/50734 Mcg Aers 2-4 Puffs INH Q6H 02/22/17 Reported Lipitor (Atorvastatin Calcium) 10 Mg Tab 10 Mg PO DAILY 02/22/17 Reported Aldactone (Spironolactone) 50 Mg Tab 50 Mg PO BID 5/29/17 Reported Prinivil (Lisinopril) 20 Mg Tab 20 Mg PO BID 02/22/17 Reported Current Inpatient Medications Current Inpatient Medications Medications (Trade) Dose Ordered Sig/Nile Route Start Time Stop Time Status Last Admin Dose Admin Ioversol 116 ml 116 ml UD PRN IV 02/22/17 18:15 02/26/17 18:14 Potassium Chloride/Sodium Chloride (Nss + 20meq KCl 1000ml) 1,000 ml @ 125 mls/hr Q8H IV 02/22/17 23:15 03/24/17 23:14 02/24/17 06:20 125 MLS/HR Hydromorphone HCl (Dilaudid Inj) 1 mg Q3R PRN IV 02/22/17 22:00 03/08/17 21:59 02/23/17 23:34 1 MG Oxycodone/ Acetaminophen (Percocet 5-325mg Tab) 1 tab Q4H PRN PO 02/22/17 22:00 03/08/17 21:59 Heparin Sodium (Porcine) (Heparin Sq 5000 Unit/0.5ml) 5,000 unit Q8 SQ 02/23/17 06:00 03/25/17 05:59 02/24/17 05:49 5,000 UNIT Ondansetron HCl (Zofran Inj) 4 mg Q6H PRN IV 02/22/17 22:00 03/24/17 21:59 02/23/17 14:31 4 MG Albuterol (Ventolin Hfa Inhaler) 2 puffs Q6H PRN INH 02/22/17 22:00 03/24/17 21:59 Atorvastatin Calcium (Lipitor Tab) 10 mg DAILY PO 02/23/17 09:00 03/25/17 08:59 02/23/17 08:51 10 MG Lisinopril 20 mg 20 mg BID PO 02/23/17 09:00 03/25/17 08:59 Promethazine HCl/ Sodium Chloride (Phenergan Inj/ Nss 50ml) 50.5 ml @ 204 mls/hr Q6H PRN IV 02/23/17 11:45 03/25/17 11:44 Spironolactone (Aldactone Tab) 50 mg HS PO 02/23/17 21:00 03/25/17 20:59 Review of Systems Constitutional: No fever, No weight loss Respiratory: + cough, + shortness of breath Cardiovascular: No chest pain Abdomen: + pain, No vomiting, No diarrhea, No GI bleeding Hematologic / Lymphatic: No abnormal bleeding/bruising Physical Exam Date Time Temp Pulse Resp B/P Pulse Ox O2 Delivery O2 Flow Rate FiO2 02/24/17 08:11 36.9 103 18 125/66 93 2.0 02/24/17 07:35 36.1 91 14 129/74 94 Nasal Cannula 2.0 02/23/17 23:30 Nasal Cannula 2.0 02/23/17 23:05 36.3 87 16 147/78 95 Nasal Cannula 2.0 02/23/17 19:34 93 Nasal Cannula 2.0 02/23/17 19:30 36.7 88 16 111/65 85 Room Air 02/23/17 16:15 36.7 95 20 148/84 90 Room Air 02/23/17 16:00 93 Room Air 02/23/17 11:45 36.2 84 24 121/75 93 Room Air General Appearance: no apparent distress, + thin Head: normocephalic, atraumatic Eyes: PERRL, EOMI ENT: hearing grossly normal, + pertinent finding (right NGT with coffee ground emesis) Neck: supple, no adenopathy, thyroid normal, no JVD Respiratory/Chest: + pertinent finding (diffuse moderate wheezing) Cardiovascular: regular rate, rhythm, no edema, no gallop, no murmur Abdomen/GI: + pertinent finding (slightly distended, quiet bowel sounds, soft, RLQ bandage) Extremities/Musculoskelatal: normal inspection, no calf tenderness, normal capillary refill, no pedal edema, + pertinent finding (SCD's applied) Neurologic/Psych: master planner II-XII nml as tested (PERRL, EOMI, no facial palsy) Skin: normal color, warm/dry Laboratory Results Chest x-ray this morning - emphysematous changes, no infiltrates, effusions, CHF. Labs this morning drawn at 09:59: Hemoglobin 12.2, white count 10,540, platelet count 171,000. Sodium 140, potassium 4.0, chloride 109, CO2 23, BUN 16, creatinine 0.83, glucose 80. . Assessment & Plan DYSPNEA / HYPOXIA / COPD History of severe COPD per PFT's, but does not require home O2, chronic steroids , or routine use of bronchodilators. Increasing dyspnea postoperatively. O2 saturations as low as 85% on room air, now adequate on nasal cannula. Chest x-ray does not show any infiltrates, effusions, CHF. Dyspnea and hypoxia most likely secondary to underlying COPD and postoperative status. Incentive spirometry encouraged. Nebulizer treatments with Xopenex and Atrovent QID. Patient received a dose of Solu-Medrol this morning. Will try to avoid further systemic steroids if possible due to postoperative status. SCDs and subcutaneous heparin ordered postoperatively; doubt pulmonary embolism. No signs of CHF. SMOKING Importance of smoking cessation discussed. Patient does not wish to have nicotine patch. UGI BLEED Coffee grounds via NG tube. Hemoglobin has fallen from 18 preoperatively to 12.2 this morning. IV pantoprazole ordered. Stop subcutaneous heparin. Follow H/H. Consult GI. HYPERTENSION Blood pressure this morning 125/66. Follow and titrate therapy. VTE PROPHYLAXIS Stop subcutaneous heparin due to upper GI bleeding. Continue SCD's. Ambulate. Thank you for this consultation. We will follow the patient with you during their hospital stay. You can reach a member of the [facility] Hospitalist Team 19/04 via pager @ [phone]. You can reach me via cell @ [phone]. .
[2017-02-24] MEDS ORDERED: LEVALBUTEROL 0.63MG/3 ML NEB INH PRN (09:15)
[2017-02-24] MEDS ORDERED: PANTOprazole INJ 40 MG in SYRINGE 0 ML IV ONE (09:30)
--- NOTE | 2017-02-24 09:58 | Surgery Progress Note ---
Surgery Progress Note Date of Service February 24, 2017. Subjective Post OP Day: 2 No bowel movement, No flatus, No nausea, No vomiting Patient sitting up in bed during examination. NG tube still in place. Reports that she is a tiny bit better today than yesterday. Her pain and discomfort at the surgical site are improving. She denies nausea or vomiting. Denies fever or chills. Objective Vital Signs: Date Time Temp Pulse Resp B/P Pulse Ox O2 Delivery O2 Flow Rate FiO2 02/23/17 23:30 Nasal Cannula 2.0 02/23/17 23:05 36.3 87 16 147/78 95 Nasal Cannula 2.0 02/23/17 19:34 93 Nasal Cannula 2.0 02/23/17 19:30 36.7 88 16 111/65 85 Room Air 02/23/17 16:15 36.7 95 20 148/84 90 Room Air 02/23/17 16:00 93 Room Air 02/23/17 11:45 36.2 84 24 121/75 93 Room Air 02/23/17 08:14 95 Nasal Cannula 2.0 02/23/17 08:10 Nasal Cannula 1.0 02/23/17 08:05 36.6 80 20 124/78 95 Nasal Cannula 2.0 Physical Exam: nasogastric drainage (45mL (02/23/17) 110mL (02/24/17)) General Appearance: WD/WN, no apparent distress Abdomen: non distended, soft, + pertinent finding (slightly tender to palpation. ) Incision(s): clean (dressing removed and changed. ), dry, intact, no drainage ( Incision healing well- no signs of infection. ) Assessment & Plan POD #2 s/p Repair inc fem hernia(marlex mesh plug) and appendectomy. Nausea resolved. Pain is improving. Afebrile. Abdomen 2 view ordered for today- will review. Dr. Shaw in to see patient after patient returned from radiology- patient was short of breath. Consulted Hospitalist for evaluation. GI consulted. Dressing changed. POD #1 s/p Repair inc fem hernia(marlex mesh plug) and appendectomy. Reviewed Abdomen 2 views. Continue NG tube. Will add Phenergan for nausea. Continue NPO, except ice chips and sips. Patient is slowly improving- will continue to monitor. POD #1 s/p Repair inc fem hernia(marlex mesh plug) and appendectomy. Reviewed Abdomen 2 views. Continue NG tube. Will add Phenergan for nausea. Continue NPO, except ice chips and sips. Patient is slowly improving- will continue to monitor.
[2017-02-24 10:39] LABS: BUN/CREATININE RATIO 19.6 (10-20); CREATININE 0.83 mg/dl (0.60-1.20)
[2017-02-24] MEDS: LEVALBUTEROL 1.25MG/0.5ML NEB INH SCH ×3 (11:05→19:15)
[2017-02-24] MEDS: IPRATROPIUM BROMIDE NEB SOLN 0.02% 2.5 ML VIAL INH SCH ×3 (11:05→19:15)
[2017-02-24] MEDS: ATORVASTATIN 10 MG TAB PO SCH (11:12)
[2017-02-24 11:28] LABS: BASO % 0.1 %; BASO ABS # 0.01 K/uL (0-0.2); COMPLETE YES; EOS % 0.7 %; HEMATOCRIT 37.5 % (37-47); IG% 0.3 %; LYMPH % 7.6 %; MEAN CELL VOLUME 93.8 fL (80-100); MEAN CORPUSCULAR HEMOGLOBIN 30.5 pg (25-34); MEAN CORPUSCULAR HGB CONC 32.5 g/dl (32-36); MEAN PLATELET VOLUME 9.4 fL (7.4-10.4); NEUT % 77.3 %; PLATELET COUNT 171 K/uL (130-400); WHITE BLOOD COUNT 10.54 K/uL (4.8-10.8)
[2017-02-24] MEDS: ONDANSETRON INJ 2 MG/ML 2 ML VIAL IV PRN (11:29)
[2017-02-24] MEDS ORDERED: PANTOprazole INJ 80 MG in DEXTROSE 5% 100ML IV SCH (12:00)
--- NOTE | 2017-02-24 12:00 | Gastrointestinal Consultation ---
Gastrointestinal Consultation Date of Consultation: February 24, 2017 Attending Physician: Donaldo Davis Consulting Physician: Juana Vasquez Reason for Consultation: Hx of U.C.; Coffee ground output on NGT History of Present Illness Patient is a 66 year old female seen as consultation today per Dr. Davis' request to be evaluated for coffee ground output on NGT. Pt has hx of Ulcerative Colitis (UC). She had been last seen at our GI clinic by Eri Paez PA-C and last colonoscopy done by Dr. Banks in 2010. She has L sided UC disease, previously managed w Lialda and Mercaptopurine. She was having symptoms of rectal bleeding, abd pain but admits that she had stopped her meds years ago when no longer having symptoms. She had came to ED 2 days ago w c/o n/v, abd pain. She had a course of Prednisone & Augmentin a few days ago by Dr. Romero for possible COPD exacerbation to prevent pneumonia. Had CT abd /pelvis which showed R sided incarcerated femoral hernia causing high grade obstruction s/p repair w mesh placement by Dr. Shaw on 02/22/17. She xray images since the surgery which showed persistent small bowel obstruction. She is currently NPO w NGT. Per RN report, after surgery NG started to put out specks of dark particles, then yesterday started to have output resembling coffee grounds. NG output 45ml yesterday, 110ml so far today. Pt reports having diffuse abd pain. Denies nausea currently. Bowel sounds very minimal and she wasn't passing flatus for 2 days now. CBC, BMP repeated, pending. Past Medical/Surgical History Medical Problems: (1) Incarcerated right inguinal hernia Status: Acute (2) Nausea & vomiting Status: Acute (3) Small bowel obstruction Status: Acute Past Medical History: See above. Past Surgical History: See above. Social History Smoking Status: Current Every Day Smoker Marital Status: Housing Status: lives with significant other Occupation Status: employed Allergies Coded Allergies: Fentanyl (Verified Allergy, Intermediate, rash due to the patch, 02/22/17) Nickel (Verified Allergy, Unknown, ., 02/22/17) Current Medications Home Meds and Scripts Medications Dose Route/Sig Max Daily Dose Days Date Category Dose Instructions Prednisone 50 Mg Tab 50 Mg PO DAILY 4 02/22/17 Reported Pt states they are to take 50mg for 5 days, 40mg for 5 days, 30mg for 5 days, 20mg for 5 days, 10mg for 5 days. Augmentin 875-125 mg (Amoxicillin & Pot Clavulanate) 1 Tab Tab 1 Tab PO BID 02/22/17 Reported Ventolin Hfa (Albuterol) 200 Puffs/08571 Mcg Aers 2-4 Puffs INH Q6H 02/22/17 Reported Lipitor (Atorvastatin Calcium) 10 Mg Tab 10 Mg PO DAILY 02/22/17 Reported Aldactone (Spironolactone) 50 Mg Tab 50 Mg PO BID 02/22/17 Reported Prinivil (Lisinopril) 20 Mg Tab 20 Mg PO BID 02/22/17 Reported Review of Systems Constitutional: No chills, No fever Respiratory: + cough Cardiac: No chest pain Abdomen: + GI bleeding, + pain, + see HPI, No nausea Physical Exam Date Time Temp Pulse Resp B/P Pulse Ox O2 Delivery O2 Flow Rate FiO2 02/24/17 11:45 37.1 114 16 146/75 93 Nasal Cannula 2.0 02/24/17 11:05 90 14 97 Nasal Cannula 3.0 02/24/17 10:30 93 Nasal Cannula 2.0 02/24/17 08:11 36.9 103 18 125/66 93 2.0 02/24/17 07:35 36.1 91 14 129/74 94 Nasal Cannula 2.0 02/23/17 23:30 Nasal Cannula 2.0 02/23/17 23:05 36.3 87 16 147/78 95 Nasal Cannula 2.0 02/23/17 19:34 93 Nasal Cannula 2.0 02/23/17 19:30 36.7 88 16 111/65 85 Room Air 02/23/17 16:15 36.7 95 20 148/84 90 Room Air 02/23/17 16:00 93 Room Air General Appearance: + mild distress Eyes: normal inspection, PERRL, EOMI Neck: supple, no JVD, trachea midline Respiratory/Chest: no accessory muscle use, + decreased breath sounds Cardiovascular: regular rate, rhythm, no gallop, no murmur Abdomen: soft, + abnormal bowel sounds (minimal bowel sounds), + tenderness ( diffuse) Extremities: normal inspection, no pedal edema, no calf tenderness Neurologic/Psych: + pertinent finding (looks tired and sleepy but answering questions appropriately ) Skin: normal color, no jaundice, no rash Laboratory Results Last 24 Hours Test 02/24/17 09:59 White Blood Count 10.54 K/uL Red Blood Count 4.00 M/uL Hemoglobin 12.2 g/dL Hematocrit 37.5 % Mean Corpuscular Volume 93.8 fL Mean Corpuscular Hemoglobin 30.5 pg Mean Corpuscular Hemoglobin Concent 32.5 g/dl Platelet Count 171 K/uL Mean Platelet Volume 9.4 fL Neutrophils (%) (Auto) 77.3 % Lymphocytes (%) (Auto) 7.6 % Monocytes (%) (Auto) 14.0 % Eosinophils (%) (Auto) 0.7 % Basophils (%) (Auto) 0.1 % Neutrophils # (Auto) 8.15 K/uL Lymphocytes # (Auto) 0.80 K/uL Monocytes # (Auto) 1.48 K/uL Eosinophils # (Auto) 0.07 K/uL Basophils # (Auto) 0.01 K/uL RDW Standard Deviation 47.3 fL RDW Coefficient of Variation 13.7 % Immature Granulocyte % (Auto) 0.3 % Immature Granulocyte # (Auto) 0.03 K/uL Sodium Level 140 mmol/L Potassium Level 4.0 mmol/L Chloride Level 109 mmol/L Carbon Dioxide Level 23 mmol/L Anion Gap 8.0 mmol/L Blood Urea Nitrogen 16 mg/dl Creatinine 0.83 mg/dl Est Creatinine Clear Calc Drug Dose 55.1 ml/min Estimated GFR () 85.2 Estimated GFR (Non- 73.5 BUN/Creatinine Ratio 19.6 Random Glucose 80 mg/dl Calcium Level 8.0 mg/dl Impression Patient is a 66 year old female w: 1. Hx of U.C. - Asymptomatic for years per pt's report. She stopped taking Lialda and Mercaptopurine for years now. Last seen at GI clinic & had colonoscopy for disease surveillance in 2010. - Hold restart of UC meds for now, will arrange for outpt f/u for UC management upon her DC 2. SBO secondary to femoral hernia s/p repair w mesh placement. - Will avoid Relistor given bowel obstruction. - Avoid opioids if possible - NGT for decompression - Bowel rest 2. Coffee ground outpt from NGT ? intubation trauma vs PUD, gastritis. - Follow H/H ; if normal, will monitor for now. But will start her on PPI bolus and gtt. - Will continue to follow and assess for need of EGD eval if UGI bleed
[2017-02-24] MEDS: PANTOprazole INJ 40 MG in DEXTROSE 5% 100ML IV SCH ×3 (12:44→21:53)
[2017-02-24 18:37] LABS: HEMATOCRIT 36.5 % (37-47)
[2017-02-24] MEDS ORDERED: PANTOprazole INJ 40 MG in SYRINGE 0 ML IV SCH (21:00)
[2017-02-25] VITALS (8 sets, daily range): BP systolic 126–157; BP diastolic 69–79; PULSE 74–95; TEMP 36.4–37.2; O2SAT 90–95
[2017-02-25] MEDS: PANTOprazole INJ 40 MG in DEXTROSE 5% 100ML IV SCH ×5 (03:00→23:27)
[2017-02-25 05:39] LABS: HEMATOCRIT 32.3 % (37-47); MEAN CELL VOLUME 92.6 fL (80-100); MEAN CORPUSCULAR HEMOGLOBIN 30.4 pg (25-34); MEAN CORPUSCULAR HGB CONC 32.8 g/dl (32-36); MEAN PLATELET VOLUME 9.3 fL (7.4-10.4); PLATELET COUNT 176 K/uL (130-400); RED BLOOD COUNT 3.49 M/uL (4.2-5.4); WHITE BLOOD COUNT 10.17 K/uL (4.8-10.8)
[2017-02-25 06:09] LABS: BUN/CREATININE RATIO 19.4 (10-20); CALCIUM 7.8 mg/dl (8.5-10.1); CREATININE 0.63 mg/dl (0.60-1.20)
[2017-02-25] MEDS: NSS + 20MEQ KCL 1000ML 1,000 ML IV SCH (06:35)
[2017-02-25] MEDS: LEVALBUTEROL 1.25MG/0.5ML NEB INH SCH (07:22)
[2017-02-25] MEDS: IPRATROPIUM BROMIDE NEB SOLN 0.02% 2.5 ML VIAL INH SCH (07:22)
--- NOTE | 2017-02-25 07:48 | Surgery Progress Note ---
Surgery Progress Note Date of Service Feb 25, 2017. Subjective Post OP Day: 3 + flatus Patient sitting up at side of bed- reports that she is doing better today. Reports that she is passing gas. Denies nausea or vomiting. Feeling a little hungry today. Objective Vital Signs: Date Time Temp Pulse Resp B/P (MAP) Pulse Ox O2 Delivery O2 Flow Rate FiO2 02/25/17 07:35 36.5 86 20 126/72 (90) 92 Room Air 02/25/17 07:22 95 16 95 Nasal Cannula 2.0 02/25/17 01:38 91 Room Air 02/24/17 23:30 Nasal Cannula 2.0 02/24/17 23:20 36.7 100 16 143/79 (100) 96 Nasal Cannula 2.0 02/24/17 19:15 92 16 97 Nasal Cannula 2.0 02/24/17 16:00 Nasal Cannula 2.0 02/24/17 15:33 88 14 96 Nasal Cannula 2.0 02/24/17 14:57 36.7 88 18 135/82 (99) 93 Nasal Cannula 2.0 02/24/17 11:45 37.1 114 16 146/75 (98) 93 Nasal Cannula 2.0 02/24/17 11:05 90 14 97 Nasal Cannula 3.0 02/24/17 10:30 93 Nasal Cannula 2.0 02/24/17 08:11 36.9 103 18 125/66 (85) 93 2.0 02/24/17 07:45 Nasal Cannula 2.0 Physical Exam: nasogastric drainage (160 mL yesterday; 40 mL today. ) General Appearance: WD/WN, no apparent distress Abdomen: non distended, soft Incision(s): clean, dry, intact, no erythema Laboratory Results: Results Past 24 Hours Test 02/24/17 09:59 02/24/17 18:31 02/25/17 05:18 Range/Units White Blood Count 10.54 10.17 4.8-10.8 K/uL Red Blood Count 4.00 3.49 4.2-5.4 M/uL Hemoglobin 12.2 11.4 10.6 12.0-16.0 g/dL Hematocrit 37.5 36.5 32.3 37-47 % Mean Corpuscular Volume 93.8 92.6 80-100 fL Mean Corpuscular Hemoglobin 30.5 30.4 25-34 pg Mean Corpuscular Hemoglobin Concent 32.5 32.8 32-36 g/dl Platelet Count 171 176 130-400 K/uL Mean Platelet Volume 9.4 9.3 7.4-10.4 fL Neutrophils (%) (Auto) 77.3 % Lymphocytes (%) (Auto) 7.6 % Monocytes (%) (Auto) 14.0 % Eosinophils (%) (Auto) 0.7 % Basophils (%) (Auto) 0.1 % Neutrophils # (Auto) 8.15 1.4-6.5 K/uL Lymphocytes # (Auto) 0.80 1.2-3.4 K/uL Monocytes # (Auto) 1.48 0.11-0.59 K/uL Eosinophils # (Auto) 0.07 0-0.5 K/uL Basophils # (Auto) 0.01 0-0.2 K/uL RDW Standard Deviation 47.3 45.7 36.4-46.3 fL RDW Coefficient of Variation 13.7 13.5 11.5-14.5 % Immature Granulocyte % (Auto) 0.3 % Immature Granulocyte # (Auto) 0.03 0.00-0.02 K/uL Sodium Level 140 139 136-145 mmol/L Potassium Level 4.0 4.0 3.5-5.1 mmol/L Chloride Level 109 108 98-107 mmol/L Carbon Dioxide Level 23 25 21-32 mmol/L Anion Gap 8.0 6.0 3-11 mmol/L Blood Urea Nitrogen 16 12 7-18 mg/dl Creatinine 0.83 0.63 0.60-1.20 mg/dl Est Creatinine Clear Calc Drug Dose 55.1 72.6 ml/min Estimated GFR () 85.2 108.3 Estimated GFR (Non- 73.5 93.5 BUN/Creatinine Ratio 19.6 19.4 10-20 Random Glucose 80 97 70-99 mg/dl Calcium Level 8.0 7.8 8.5-10.1 mg/dl CHEST AND ABDOMEN 2 VIEWS- 02/24/2017 HISTORY: Bowel obstruction. Follow-up. COMPARISON: Abdomen and pelvis CT 02/22/2017. Abdominal series 02/23/2017. FINDINGS: The heart is normal in size. Mild diffuse interstitial thickening. Trace bilateral pleural effusions. Nasogastric tube terminates in the proximal stomach. Multiple distended gas and fluid-filled loops of small bowel seen throughout the abdomen. These have slightly improved in the interval. These measure up to 4.4 cm. No pneumoperitoneum. No pneumatosis. Skin anne within the right groin. IMPRESSION: 1. Slight improvement in the distended loops of small bowel consistent with a small bowel obstruction. 2. Nasogastric tube terminates in the proximal stomach, unchanged. This could be advanced by approximately 5 cm. Assessment & Plan POD #3 s/p Repair inc fem hernia(marlex mesh plug) and appendectomy. Patient slowly improving. Vital signs stable. Dr. Shaw in to see patient. Will D/C NG tube. Will advance patient's diet to clear liquids. Will advance patient's activity- ambulate in hallway as tolerated. May shower. Will continue to follow. POD #2 s/p Repair inc fem hernia(marlex mesh plug) and appendectomy. Nausea resolved. Pain is improving. Afebrile. Abdomen 2 view ordered for today- will review. Dr. Shaw in to see patient after patient returned from radiology- patient was short of breath. Consulted Hospitalist for evaluation. GI consulted. Dressing changed. POD #1 s/p Repair inc fem hernia(marlex mesh plug) and appendectomy. Reviewed Abdomen 2 views. Continue NG tube. Will add Phenergan for nausea. Continue NPO, except ice chips and sips. Patient is slowly improving- will continue to monitor. POD #1 s/p Repair inc fem hernia(marlex mesh plug) and appendectomy. Reviewed Abdomen 2 views. Continue NG tube. Will add Phenergan for nausea. Continue NPO, except ice chips and sips. Patient is slowly improving- will continue to monitor. clear liquids discontinue NGT ambulate
--- NOTE | 2017-02-25 08:00 | SURGERY PROGRESS NOTE ---
DATE: 02/25/2017 Melissa is 3rd postoperative day status post repair of incarcerated right femoral hernia with contents of the appendix. This morning she states she feels much better. She is starting to pass some flatus. Yesterday morning when I saw her she had just come back from x-ray and she was quite short of breath, was gasping for air. I had the medical service and spoke with Dr. Davis personally where he saw her immediately and felt that this may have been just exertion from going down for x-rays since she has significant pulmonary disease. There was also concern was that she was still not opening up and radiographically showed the small bowel was quite distended and I had GI see her for 2 reasons; one was to be evaluated for possible colonoscopy. She has a history of ulcerative colitis, has not been followed up and to rule out the possibility of pathology in the colon accounting for her obstruction. This morning I am happy to report that she feels much better. She is starting to pass flatus. Her last vitals showed a temperature of 36.7, pulse 100, respirations 16, blood pressure 143/79, O2 sats 91 on room air. Her I&O she had 475 urine overnight. The NG drainage is only 40 and still slightly coffee ground. Her abdomen is much softer. At this point I will discontinue the NG tube and start her on some clear liquids. Hopefully, she has resolved her obstruction. The pathology was noted and I was surprised to see it was acute appendicitis. Intraoperatively the only thing I saw was maybe the tip may have been slightly ischemic, and I was not sure if that was just from the incarceration, but ty here is no malignancy.
[2017-02-25] MEDS: ATORVASTATIN 10 MG TAB PO SCH (09:02)
[2017-02-25] MEDS: HYDROmorphone INJ 1 MG/ML SYR IV PRN (09:04)
--- NOTE | 2017-02-25 10:25 | DIAGNOSTIC IMAGING REPORT ---
[facility] CLINICAL HISTORY: Follow-up small bowel obstruction. FINDINGS: 2 AP supine abdominal radiographs are compared to study dated 02/24/2017 and correlated with abdominal CT dated 02/22/2017. An enteric tube has been removed. There are persistent distended and gas-filled loops of small bowel. The colon is also mildly distended and gas-filled. The degree of distention appears modestly improved from yesterday. Fecal retention is noted in the right colon. No evidence of intraperitoneal free air is seen on the supine views. There are no abnormal abdominal calcifications. The skeletal structures are osteopenic. The bony structures are intact as imaged. Surgical clips project over the right groin. IMPRESSION: 1. An enteric tube has been removed. 2. There is persistent gaseous distention of small bowel loops as well as the colon. The degree of distention appears improved from yesterday, and this could represent improving small bowel obstruction versus postoperative ileus. Ileus is favored given the colonic distention. Clinical correlation will be required. Electronically signed by: Jamie Zapata M.D. 02/25/2017 10:24 AM Dictated Date/Time: 02/25/2017 10:22 AM
[2017-02-25] MEDS ORDERED: POLYETHYLENE (MIRALAX) 17 GM PACK PO ONE (11:15)
--- NOTE | 2017-02-25 11:16 | Gastroenterology Progress Note ---
Progress Note Date of Service: Feb 25, 2017 Subjective Pt evaluation today including: conversation w/ patient, physical exam, chart review, lab review, review of studies, review of inpatient medication list Pt just returned from [facility]. NGT removed. She is passing flatus, no BMs yet. Abd feels sore but better than yesterday. Denies any n/v Hgb noted 12 -> 10.6 NGT output 125ml yesterday. [facility] showed improved bowel distension, ileus more likely vs SBO. Review of Systems Constitutional: No fever, No chills Respiratory: + shortness of breath, No cough Cardiac: No chest pain Abdomen: + pain, No nausea, No vomiting, No GI bleeding Medications Current Inpatient Medications Medications (Trade) Dose Ordered Sig/Nile Route Start Time Stop Time Status Last Admin Dose Admin Ioversol (Optiray 320) 116 ml UD PRN IV 02/22/17 18:15 02/26/17 18:14 Potassium Chloride/Sodium Chloride 1,000 ml @ 75 mls/hr [id number] IV 02/22/17 23:15 03/24/17 23:14 02/25/17 06:35 125 MLS/HR Hydromorphone HCl (Dilaudid Inj) 1 mg Q3R PRN IV 02/22/17 22:00 03/08/17 21:59 02/25/17 09:04 1 MG Oxycodone/ Acetaminophen (Percocet 5-325mg Tab) 1 tab Q4H PRN PO 02/22/17 22:00 03/08/17 21:59 Ondansetron HCl (Zofran Inj) 4 mg Q6H PRN IV 02/22/17 22:00 03/24/17 21:59 02/24/17 11:29 4 MG Albuterol (Ventolin Hfa Inhaler) 2 puffs Q6H PRN INH 02/22/17 22:00 03/24/17 21:59 Atorvastatin Calcium (Lipitor Tab) 10 mg DAILY PO 02/23/17 09:00 03/25/17 08:59 02/25/17 09:02 10 MG Promethazine HCl 12.5 mg/Sodium Chloride 50.5 ml @ 204 mls/hr Q6H PRN IV 02/23/17 11:45 03/25/17 11:44 Ipratropium [place] (Atrovent 0.02% 0.5MG/2.5ML Neb) 0.5 mg QIDR INH 02/24/17 12:00 03/26/17 11:59 02/25/17 07:22 0.5 MG Levalbuterol (Xopenex 1.25MG/ 0.5ML Neb) 1.25 mg QIDR INH 02/24/17 12:00 03/26/17 11:59 02/25/17 07:22 1.25 MG Levalbuterol (Xopenex 0.63 Mg/ 3 Ml Neb) 0.63 mg Q2H PRN INH 02/24/17 09:15 03/26/17 09:14 Pantoprazole Sodium 40 mg/ Dextrose 100 ml @ 20 mls/hr Q5H IV 02/24/17 12:15 03/26/17 12:14 02/25/17 09:01 20 MLS/HR Salmeterol Xinafoate/ Fluticasone (Advair Diskus 250/50 Inh) 1 puff BID INH 02/25/17 09:00 03/27/17 08:59 Objective Vital Signs Date Time Temp Pulse Resp B/P (MAP) Pulse Ox O2 Delivery O2 Flow Rate FiO2 02/25/17 08:05 92 Room Air 02/25/17 07:50 Room Air 02/25/17 07:35 36.5 86 20 126/72 (90) 92 Room Air 02/25/17 07:22 95 16 95 Nasal Cannula 2.0 02/25/17 01:38 91 Room Air 02/24/17 23:30 Nasal Cannula 2.0 02/24/17 23:20 36.7 100 16 143/79 (100) 96 Nasal Cannula 2.0 02/24/17 19:15 92 16 97 Nasal Cannula 2.0 02/24/17 16:00 Nasal Cannula 2.0 02/24/17 15:33 88 14 96 Nasal Cannula 2.0 02/24/17 14:57 36.7 88 18 135/82 (99) 93 Nasal Cannula 2.0 02/24/17 11:45 37.1 114 16 146/75 (98) 93 Nasal Cannula 2.0 Physical Exam General Appearance: WD/WN, no apparent distress Eyes: normal inspection, PERRL, EOMI Neck: supple, no JVD, trachea midline Respiratory/Chest: no respiratory distress, no accessory muscle use, + decreased breath sounds Cardiovascular: regular rate, rhythm, no gallop, no murmur Abdomen: soft, + abnormal bowel sounds, + tenderness Extremities: normal inspection, no pedal edema, no calf tenderness Neurologic/Psych: alert, normal mood/affect, oriented x 3 Skin: normal color, no jaundice, no rash Laboratory Results Last 24 Hours Test 02/24/17 18:31 02/25/17 05:18 Hemoglobin 11.4 g/dL 10.6 g/dL Hematocrit 36.5 % 32.3 % White Blood Count 10.17 K/uL Red Blood Count 3.49 M/uL Mean Corpuscular Volume 92.6 fL Mean Corpuscular Hemoglobin 30.4 pg Mean Corpuscular Hemoglobin Concent 32.8 g/dl RDW Standard Deviation 45.7 fL RDW Coefficient of Variation 13.5 % Platelet Count 176 K/uL Mean Platelet Volume 9.3 fL Sodium Level 139 mmol/L Potassium Level 4.0 mmol/L Chloride Level 108 mmol/L Carbon Dioxide Level 25 mmol/L Anion Gap 6.0 mmol/L Blood Urea Nitrogen 12 mg/dl Creatinine 0.63 mg/dl Est Creatinine Clear Calc Drug Dose 72.6 ml/min Estimated GFR () 108.3 Estimated GFR (Non- 93.5 BUN/Creatinine Ratio 19.4 Random Glucose 97 mg/dl Calcium Level 7.8 mg/dl Assessment and Plan Impression Patient is a 66 year old female w: 1. Hx of U.C. - Asymptomatic for years per pt's report. She stopped taking Lialda and Mercaptopurine for years now. Last seen at GI clinic & had colonoscopy for disease surveillance in 2010. - Hold restart of UC meds for now, will arrange for outpt f/u for UC management upon her DC. Will need repeat Colonoscopy for UC surveillance 2. SBO secondary to femoral hernia s/p repair w mesh placement. NGT removed, she is passing flatus but no BMs yet. No n/v, abd pain improved. KUB today showed persistent bowel distension but improved, likely ileus rather than SBO. - Ok for CL diet - Start Miralax 17g daily; will consider Relistor if no BM tomorrow. - Avoid opioids if possible -[facility] in AM 2. Coffee ground outpt from NGT ? intubation trauma vs PUD, gastritis. NGT now removed. - Continue to monitor H/H for now. - Continue PPI gtt for 1 more day. If no s/s of hematemesis/coffee ground emesis , or melena will avoid EGD eval.
[2017-02-25] MEDS: FLUTICASONE/SALMETEROL 250/50 (ADVAIR) 14 PUFF/1 INHALER INH SCH ×2 (11:28→21:49)
[2017-02-25] MEDS: LEValbuterol HFA 15GM INHALER INH SCH ×2 (17:45→21:49)
[2017-02-25] MEDS: IPRATROPIUM BROMIDE HFA INHALER INH SCH ×2 (17:47→21:49)
--- NOTE | 2017-02-25 21:49 | Progress Note ---
Medicine Progress Note Date & Time of Visit: Feb 25, 2017 at 11:40 . Subjective Feels much better. Passing flatus. Nasogastric tube removed. Less postoperative abdominal pain. No fever. No significant cough or dyspnea. No chest pain. Ambulating. . Objective Last 8 Hrs Date Time Temp Pulse Resp B/P (MAP) Pulse Ox O2 Delivery O2 Flow Rate FiO2 02/25/17 16:00 Room Air 02/25/17 15:32 37.2 84 16 153/79 (103) 94 Room Air Physical Exam: General- no distress ENT- NGT removed Neck- no JVD Lungs- diffuse mild wheezing Heart- regular rate and rhythm Abdomen- slightly distended, soft Extremities- trace pretibial edema Neuro- alert, oriented . Laboratory Results: Last 24 Hours Test 02/25/17 05:18 White Blood Count 10.17 K/uL Red Blood Count 3.49 M/uL Hemoglobin 10.6 g/dL Hematocrit 32.3 % Mean Corpuscular Volume 92.6 fL Mean Corpuscular Hemoglobin 30.4 pg Mean Corpuscular Hemoglobin Concent 32.8 g/dl RDW Standard Deviation 45.7 fL RDW Coefficient of Variation 13.5 % Platelet Count 176 K/uL Mean Platelet Volume 9.3 fL Sodium Level 139 mmol/L Potassium Level 4.0 mmol/L Chloride Level 108 mmol/L Carbon Dioxide Level 25 mmol/L Anion Gap 6.0 mmol/L Blood Urea Nitrogen 12 mg/dl Creatinine 0.63 mg/dl Est Creatinine Clear Calc Drug Dose 72.6 ml/min Estimated GFR () 108.3 Estimated GFR (Non- 93.5 BUN/Creatinine Ratio 19.4 Random Glucose 97 mg/dl Calcium Level 7.8 mg/dl Assessment & Plan DYSPNEA / HYPOXIA / COPD History of severe COPD per PFT's, but does not require home O2, chronic steroids , or routine use of bronchodilators. Increased dyspnea postoperatively. O2 saturations were as low as 85% on room air. Chest x-ray did not show any infiltrates, effusions, CHF. Dyspnea and hypoxia most likely secondary to underlying COPD and postoperative status. Dyspnea and isolation improved today. Continue incentive spirometry. Start Advair. Continue nebulizer treatments. SMOKING Importance of smoking cessation discussed. Patient does not wish to have nicotine patch. She does not wish to pursue smoking cessation counseling. UGI BLEED Coffee grounds noted via NG tube. Hemoglobin has fallen from 18 preoperatively to 10.6 this morning. IV pantoprazole ordered. Stopped subcutaneous heparin. Follow H/H. GI consulted and is following. HYPERTENSION Follow and titrate therapy. VTE PROPHYLAXIS Stopped subcutaneous heparin due to upper GI bleeding. Continue SCD's. Ambulating. Thank you for this consultation. We will follow the patient with you during their hospital stay. You can reach a member of the [facility] Hospitalist Team 19/04 via pager @ . You can reach me via cell @ [phone]. . Current Inpatient Medications: Current Inpatient Medications Medications (Trade) Dose Ordered Sig/[place]ile Route Start Time Stop Time Status Last Admin Dose Admin Ioversol (Optiray 320) 116 ml UD PRN IV 02/22/17 18:15 02/26/17 18:14 Hydromorphone HCl (Dilaudid Inj) 1 mg Q3R PRN IV 02/22/17 22:00 03/08/17 21:59 02/25/17 09:04 1 MG Oxycodone/ Acetaminophen (Percocet 5-325mg Tab) 1 tab Q4H PRN PO 02/22/17 22:00 03/08/17 21:59 Ondansetron HCl (Zofran Inj) 4 mg Q6H PRN IV 02/22/17 22:00 03/24/17 21:59 02/24/17 11:29 4 MG Albuterol (Ventolin Hfa Inhaler) 2 puffs Q6H PRN INH 02/22/17 22:00 03/24/17 21:59 Atorvastatin Calcium (Lipitor Tab) 10 mg DAILY PO 02/23/17 09:00 03/25/17 08:59 02/25/17 09:02 10 MG Promethazine HCl 12.5 mg/Sodium Chloride 50.5 ml @ 204 mls/hr Q6H PRN IV 02/23/17 11:45 03/25/17 11:44 Levalbuterol (Xopenex 0.63 Mg/ 3 Ml Neb) 0.63 mg Q2H PRN INH 02/24/17 09:15 03/26/17 09:14 Pantoprazole Sodium 40 mg/ Dextrose 100 ml @ 20 mls/hr Q5H IV 02/24/17 12:15 03/26/17 12:14 02/25/17 18:04 20 MLS/HR Salmeterol Xinafoate/ Fluticasone (Advair Diskus 250/50 Inh) 1 puff BID INH 02/25/17 09:00 03/27/17 08:59 02/25/17 11:28 1 PUFF Polyethylene (Miralax Powder Packet) 17 gm DAILY PO 02/26/17 09:00 03/28/17 08:59 Ipratropium [place] (Atrovent Hfa Inhaler) 2 puffs QID INH 02/25/17 17:00 03/27/17 16:59 02/25/17 17:47 2 PUFFS Levalbuterol (Xopenex Hfa Inhaler) 2 puffs QID INH 02/25/17 17:00 03/27/17 16:59 02/25/17 17:45 2 PUFFS
[2017-02-26] MEDS: PANTOprazole INJ 40 MG in DEXTROSE 5% 100ML IV SCH ×2 (04:17→08:32)
[2017-02-26 06:27] LABS: HEMATOCRIT 33.6 % (37-47); MEAN CELL VOLUME 91.3 fL (80-100); MEAN CORPUSCULAR HEMOGLOBIN 30.7 pg (25-34); MEAN CORPUSCULAR HGB CONC 33.6 g/dl (32-36); MEAN PLATELET VOLUME 9.4 fL (7.4-10.4); PLATELET COUNT 206 K/uL (130-400); RED BLOOD COUNT 3.68 M/uL (4.2-5.4)
[2017-02-26 07:07] LABS: BUN/CREATININE RATIO 11.7 (10-20); CALCIUM 7.9 mg/dl (8.5-10.1); CREATININE 0.76 mg/dl (0.60-1.20); POTASSIUM 3.4 mmol/L (3.5-5.1)
[2017-02-26 07:35] VITALS: BP 155/82; PULSE 79; TEMP 36.9; O2SAT 92
--- NOTE | 2017-02-26 07:38 | DIAGNOSTIC IMAGING REPORT ---
[facility] CLINICAL HISTORY: Reevaluate small bowel obstruction. COMPARISON STUDY: [facility] February 25, 2017. FINDINGS: Small bowel dilatation has improved since exam exam of the first 2017. There is mild gaseous distention of the colon. There may be gas within the bladder. IMPRESSION: 1. Interval improvement in small bowel dilatation. The findings suggest a resolving ileus/bowel obstruction. 2. Possible gas within the bladder which could be correlated with history of recent instrumentation. Electronically signed by: Juan Walsh M.D. 02/26/2017 7:36 AM Dictated Date/Time: 02/26/2017 7:24 AM
[2017-02-26] MEDS: FLUTICASONE/SALMETEROL 250/50 (ADVAIR) 14 PUFF/1 INHALER INH SCH (08:27)
[2017-02-26] MEDS: IPRATROPIUM BROMIDE HFA INHALER INH SCH ×2 (08:27→12:22)
[2017-02-26] MEDS: LEValbuterol HFA 15GM INHALER INH SCH ×2 (08:27→12:22)
[2017-02-26] MEDS: ATORVASTATIN 10 MG TAB PO SCH (08:28)
--- NOTE | 2017-02-26 08:55 | Surgery Progress Note ---
Surgery Progress Note Date of Service Feb 26, 2017. Subjective Post OP Day: 4 + feeling well, + flatus, + pain controlled, No bowel movement, No nausea, No vomiting Objective Vital Signs: Date Time Temp Pulse Resp B/P (MAP) Pulse Ox O2 Delivery O2 Flow Rate FiO2 02/26/17 07:35 36.9 79 18 155/82 (106) 92 Room Air 02/26/17 07:20 Room Air 02/25/17 23:30 Room Air 02/25/17 22:52 36.4 74 17 151/79 (103) 90 Room Air 02/25/17 16:00 Room Air 02/25/17 15:32 37.2 84 16 153/79 (103) 94 Room Air 02/25/17 11:28 36.8 87 20 157/69 (98) 94 Room Air 02/25/17 11:21 86 16 94 Nasal Cannula 2.0 General Appearance: WD/WN, no apparent distress Abdomen: soft (mild distention) Incision(s): clean, dry, intact, no erythema, no drainage Laboratory Results: Results Past 24 Hours Test 02/26/17 05:50 Range/Units White Blood Count 8.60 4.8-10.8 K/uL Red Blood Count 3.68 4.2-5.4 M/uL Hemoglobin 11.3 12.0-16.0 g/dL Hematocrit 33.6 37-47 % Mean Corpuscular Volume 91.3 80-100 fL Mean Corpuscular Hemoglobin 30.7 25-34 pg Mean Corpuscular Hemoglobin Concent 33.6 32-36 g/dl RDW Standard Deviation 44.7 36.4-46.3 fL RDW Coefficient of Variation 13.5 11.5-14.5 % Platelet Count 206 130-400 K/uL Mean Platelet Volume 9.4 7.4-10.4 fL Sodium Level 140 136-145 mmol/L Potassium Level 3.4 3.5-5.1 mmol/L Chloride Level 106 98-107 mmol/L Carbon Dioxide Level 27 21-32 mmol/L Anion Gap 7.0 3-11 mmol/L Blood Urea Nitrogen 9 7-18 mg/dl Creatinine 0.76 0.60-1.20 mg/dl Est Creatinine Clear Calc Drug Dose 60.2 ml/min Estimated GFR () 94.7 Estimated GFR (Non- 81.7 BUN/Creatinine Ratio 11.7 10-20 Random Glucose 93 70-99 mg/dl Calcium Level 7.9 8.5-10.1 mg/dl Assessment & Plan POD #4- s/p Repair inc fem hernia(marlex mesh plug) and appendectomy. Dr. Shaw in to see and examine patient. Patient sitting up in bed- reports that she is doing well. Pain is controlled. D/C IV access. Patient tolerating clear liquids well, will advance to regular diet. Patient wants to go home today, will see how she tolerates breakfast and lunch. Will re-evaluate this afternoon. POD #3 s/p Repair inc fem hernia(marlex mesh plug) and appendectomy. Patient slowly improving. Vital signs stable. Dr. Shaw in to see patient. Will D/C NG tube. Will advance patient's diet to clear liquids. Will advance patient's activity- ambulate in hallway as tolerated. May shower. Will continue to follow. POD #2 s/p Repair inc fem hernia(marlex mesh plug) and appendectomy. Nausea resolved. Pain is improving. Afebrile. Abdomen 2 view ordered for today- will review. Dr. Shaw in to see patient after patient returned from radiology- patient was short of breath. Consulted Hospitalist for evaluation. GI consulted. Dressing changed. POD #1 s/p Repair inc fem hernia(marlex mesh plug) and appendectomy. Reviewed Abdomen 2 views. Continue NG tube. Will add Phenergan for nausea. Continue NPO, except ice chips and sips. Patient is slowly improving- will continue to monitor. POD #1 s/p Repair inc fem hernia(marlex mesh plug) and appendectomy. Reviewed Abdomen 2 views. Continue NG tube. Will add Phenergan for nausea. Continue NPO, except ice chips and sips. Patient is slowly improving- will continue to monitor. regular diet
[2017-02-26] MEDS ORDERED: OXYC-57 PO (08:57)
[2017-02-26] MEDS ORDERED: NURSING VERBAL MED ORDER ONE (09:00)
[2017-02-26] MEDS ORDERED: POLYETHYLENE (MIRALAX) 17 GM PACK PO SCH (09:00)
--- NOTE | 2017-02-26 09:03 | Discharge Instructions ---
Discharge Instructions Date of Service Feb 26, 2017. Admission Reason for Admission: Incarcerated Right Inguinal Hernia Discharge Discharge Diagnosis / Problem: Incarcerated Right Inguinal Hernia Discharge Goals Goal(s): Decrease discomfort Activity Recommendations Activity Limitations: as noted below Lifting Limitations: no more than 10 pounds Exercise/Sports Limitations: until after follow-up appointment May Resume Sexual Activity: after follow-up appointment Shower/Bathe: no limitations Driving or Machine Use: resume 3 days after discharge . Instructions / Follow-Up Instructions / Follow-Up Patient may take showers, but may not take a bath until incision is completely healed. Patient is to follow-up with Dr. Shaw next week in the office. Please call the office at [phone] to make an appointment. Please call the office at [phone] with any questions or concerns. Current Hospital Diet Patient's current hospital diet: Regular Diet Discharge Diet Recommended Diet: Regular Diet Procedures Procedures Performed: Repair of Incarcerated Femoral Hernia with Mesh and Appendectomy. Pending Studies Studies pending at discharge: no Medical Emergencies . Who to Call and When: Medical Emergencies: If at any time you feel your situation is an emergency, please call 911 immediately. . Non-Emergent Contact Non-Emergency issues call your: Primary Care Provider, Surgeon Call Non-Emergent contact if: temperature is above 101.5, your pain is not controlled, wound has increased drainage, wound has increased redness . "Provider Documentation" section prepared by Ramila King. . VTE Core Measure Inpt VTE Proph given/why not?: SCD's [place] Drug Monitoring Program Search Results: patient reviewed within database, no issues identified
[2017-02-26] MEDS ORDERED: POTASSIUM CHLORIDE 20 MEQ TABCR PO ONE (09:45)
--- NOTE | 2017-02-26 10:24 | Progress Note ---
Progress Note Date of Service Feb 26, 2017. Progress Note GI quick note: Pt seen walking the hallways. She tolerated some eggs for breakfast today. Continues to pass flatus, no BMs yet. She reports having abd pain rate 5/10 but is trying to avoid narcotics and able to handle the pain for now. She wants to go home today. KUB reviewed, improved distension. Labs reviewed: H/H stable, K slightly low at 3.4. Pt is going to have f/u w Dr. Meza within 1-2 weeks of DC. We will help set up f/u GI appt in 2-3 weeks.
--- NOTE | 2017-02-26 12:10 | Consultant Recommendations ---
Quarrying Specialist Recommendations Date of Service Feb 26, 2017. Quarrying Specialist Recommendations APPOINTMENTS: FAMILY MEDICINE 03/04/2017 11:30 AM Leslye Garza DO (covering for Dr. Meza) INSTRUCTIONS: New medication- pantoprazole (Protonix) 40 mg twice a day for 1 month (prescription sent to [facility]) Do not take medications like aspirin, ibuprofen (Advil or Motrin), no naproxen ( Aleve) for at least 1 month. They can irritate the stomach and cause ulcers. Continue to use incentive spirometry (Triflow) for next week. Seek medical attention if you have: * temperature above 101 * chest pain or trouble breathing * abdominal pain, nausea, vomiting * diarrhea, dark stools or bloody stools * any unanswered questions or concerns Call [phone] if symptoms are severe. Call if you have any questions or problems. My cell # is [phone]. You can also reach a [facility] hospitalist on duty at [facility] 24 hours a day by calling [phone]. Please take good care of yourself. Donaldo Davis .
[2017-02-26] MEDS ORDERED: PANT40TA2 PO (12:13)
[2017-02-26 12:47] VITALS: BP 155/82; PULSE 79; TEMP 36.9; O2SAT 92
--- NOTE | 2017-02-26 12:54 | Discharge Instructions ---
Discharge Instructions Date of Service Feb 26, 2017. Admission Reason for Admission: Incarcerated Right Inguinal Hernia Discharge Discharge Diagnosis / Problem: hernia repair Discharge Goals Goal(s): Decrease discomfort Activity Recommendations Activity Limitations: as noted below Lifting Limitations: no more than 10 pounds Shower/Bathe: no limitations (ok to shower) Driving or Machine Use: resume 3 days after discharge . Instructions / Follow-Up Instructions / Follow-Up Dr. Shaw's office next week for suture removal, [phone] Current Hospital Diet Patient's current hospital diet: Regular Diet Discharge Diet Recommended Diet: Regular Diet Procedures Procedures Performed: Repair of Incarcerated Femoral Hernia with Mesh and Appendectomy. Pending Studies Studies pending at discharge: no Medical Emergencies . Who to Call and When: Medical Emergencies: If at any time you feel your situation is an emergency, please call 911 immediately. . Non-Emergent Contact Non-Emergency issues call your: Surgeon Call Non-Emergent contact if: you have a fever, temperature is above 101.5, your pain is not controlled, wound has increased redness, wound has increased pain . "Provider Documentation" section prepared by Denton Nguyen. . Body Mechanic Apprentice Recommendations Body Mechanic Apprentice Recommendations: APPOINTMENTS: FAMILY MEDICINE 03/04/2017 11:30 AM Leslye Garza DO (covering for Dr. Meza) INSTRUCTIONS: New medication- pantoprazole (Protonix) 40 mg twice a day for 1 month (prescription sent to [facility]) Do not take medications like aspirin, ibuprofen (Advil or Motrin), no naproxen ( Aleve) for at least 1 month. They can irritate the stomach and cause ulcers. Continue to use incentive spirometry (Triflow) for next week. Seek medical attention if you have: * temperature above 101 * chest pain or trouble breathing * abdominal pain, nausea, vomiting * diarrhea, dark stools or bloody stools * any unanswered questions or concerns Call 911 if symptoms are severe. Call if you have any questions or problems. My cell # is [phone]. You can also reach a [facility] hospitalist on duty at [facility] 24 hours a day by calling [phone]. Please take good care of yourself. Donaldo Davis . VTE Core Measure Inpt VTE Proph given/why not?: SCD's
--- NOTE | 2017-02-26 23:36 | Progress Note ---
Medicine Progress Note Date & Time of Visit: Feb 26, 2017 at ~ 12:00 . Subjective Doing well. No fever. No cough or SOB. No chest pain. Less postop abdominal pain. Passing flatus and stool. No N/V. Ambulating. . Objective Physical Exam: General- no distress Neck- no JVD Lungs- diffuse mild wheezing Heart- RRR Abdomen- +BS, soft Extremities- trace pretibial edema Neuro- alert, oriented . Laboratory Results: Last 24 Hours Test 02/26/17 05:50 White Blood Count 8.60 K/uL Red Blood Count 3.68 M/uL Hemoglobin 11.3 g/dL Hematocrit 33.6 % Mean Corpuscular Volume 91.3 fL Mean Corpuscular Hemoglobin 30.7 pg Mean Corpuscular Hemoglobin Concent 33.6 g/dl RDW Standard Deviation 44.7 fL RDW Coefficient of Variation 13.5 % Platelet Count 206 K/uL Mean Platelet Volume 9.4 fL Sodium Level 140 mmol/L Potassium Level 3.4 mmol/L Chloride Level 106 mmol/L Carbon Dioxide Level 27 mmol/L Anion Gap 7.0 mmol/L Blood Urea Nitrogen 9 mg/dl Creatinine 0.76 mg/dl Est Creatinine Clear Calc Drug Dose 60.2 ml/min Estimated GFR () 94.7 Estimated GFR (Non- 81.7 BUN/Creatinine Ratio 11.7 Random Glucose 93 mg/dl Calcium Level 7.9 mg/dl Assessment & Plan DYSPNEA / HYPOXIA / COPD History of severe COPD per PFT's, but does not require home O2, chronic steroids , or routine use of bronchodilators. Increased dyspnea postoperatively. O2 saturations were as low as 85% on room air. Chest x-ray did not show any infiltrates, effusions, CHF. Dyspnea and hypoxia most likely secondary to underlying COPD and postoperative status. Dyspnea and isolation improved today. Continue incentive spirometry. Discharge on albuterol MDI PRN. SMOKING Importance of smoking cessation discussed. Patient does not wish to have nicotine patch. She does not wish to pursue smoking cessation counseling. UGI BLEED Coffee grounds noted via NG tube. Hemoglobin has fallen from 18 preoperatively to 10.6 this morning. IV pantoprazole ordered. Stopped subcutaneous heparin. Hgb today stable at 11.3. Discharge on pantoprazole 40 mg BID x 30 days. Avoid ASA and NSAID's. Will need EGD if any further signs / symptoms of GI bleeding. HYPERTENSION Stable. DISPOSITION Stable for DC to home. Medical follow-up with Family Medicine arranged. .
--- NOTE | 2017-03-02 08:21 | Discharge Summary ---
Discharge Summary Date of Service Mar 02, 2017. Admission Date/Reason February 22, 2017 at 22:02 Incarcerated Right Inguinal Hernia. Discharge Date/Disposition Feb 26, 2017 Home Diagnosis Principal Diagnosis: Incarcerated Right Femoral Hernia Secondary Diagnoses/Problems: Small Bowel Obstruction Acute Appendicitis Procedure(s) Performed Repair of Incarcerated Femoral Hernia (Marlex Mesh Plug) and Appendectomy. Consultations Gastroenterology Hospitalist Medication Reconciliation New Prescription: 1. Pantoprazole 40mg PO BID #60 Continued Prescriptions: 1. Albuterol Hfa (Ventolin Hfa) 200 puffs/[id number] Aers: 2-4 puffs INH Q6H # 1 Inhaler 2. Atorvastatin (Lipitor) 10mg PO daily. 3. Lisinopril (Prinivil) 20mg PO BID 4. Spironolactone (Aldactone) 50mg PO BID Admission Physical Exam As per Admitting History & Physical. Hospital Course Ms. Navas, a 66-year-old female with past medical history significant for Ulcerative Colitis and COPD, became known to our service after she presented to [facility] ED on 02/22/2017 with complaints of vomiting x 2 days and a tender lump in her right groin area x 2 days. She had been unable to eat for the last two days. Patient had CT scan completed, which showed a small bowel obstruction possibly secondary to an incarcerated hernia. Specifically, the CT scan showed what appears to be a loop of bowel and knuckle stuck in the right lower quadrant consistent with an incarcerated femoral hernia. Prior to reporting to ED, patient was being prophylactically treated by Dr. Lane Bingham with an antibiotic and steroid for repeated bouts of pneumonia. Patient noticed the lump in her right groin after a severe coughing episode. Patient was admitted and prepped for open incarcerated femoral hernia repair. Pre-Op Diagnosis- Incarcerated Right Femoral Hernia Post-Op Diagnosis- Incarcerated Femoral Hernia Contents Appendix (DeGarengeot Hernia). Procedure Performed- Open Repair of Incarcerated Femoral Hernia (Marlex Mesh Plug) and Appendectomy. Post-Operatively, Ms. Navas had an NG tube placed and was kept NPO, except ice chips and sips for a couple of days. GI was consulted for possible colonoscopy and due to the fact that she has a history of ulcerative colitis and had not been evaluated in quite some time. Once patient began passing flatus and her nausea subsided, her NG tube was removed and diet was advanced. Patient continued to improve with conservative management of the small bowel obstruction. Imaging of her abdomen showed that her small bowel obstruction was improving. Patient was discharged on POD # 4 after tolerating a regular diet, ambulating in the hallway, pain controlled, and having a bowel movement. Patient was discharge to home with a follow-up appointment with General Surgery the following week as well as a follow-up appointment with Family Medicine. Pathology: Final Diagnosis: A. Soft Tissue, Round Ligament, Excision: 1. Benign Fibrovascular Tissue Consistent with Round Ligament. 2. Benign Adipose Tissue. 3. Negative for Malignancy. B. Soft Tissue, Right Inguinal Area, Excision: 1. Fat Necrosis with Associated Calcification. 2. Fibrosis with Chronic Inflammation. 3. Negative for Malignancy. C. Appendix, Appendectomy: Acute Appendicitis. Discharge Instructions Please refer to the electronic Patient Visit Report (Discharge Instructions) for additional information.
== END 2017-02-26 16:30 | disposition home or self-care (01) | DRG 342 ==
LOC: ENRESERVDT → ENRESERVTM → C.EDB 17:07 → C.MSN 22:02
PROVIDERS: ADMIT Surgery; ATTEND Surgery
PROC: 0WUF0JZ Supplement Abdominal Wall with Synthetic Substitute, Open Approach (ICD-10-PCS; principal; 2017-02-22 19:11)
PROC: 0DTJ0ZZ Resection of Appendix, Open Approach (ICD-10-PCS; principal; 2017-02-22 19:11)
DX: K41.30 Unilateral femoral hernia, with obstruction, without gangrene, not specified as recurrent (principal); K51.90 Ulcerative colitis, unspecified, without complications; K35.80 Unspecified acute appendicitis; F17.200 Nicotine dependence, unspecified, uncomplicated; I10 Essential (primary) hypertension; J44.9 Chronic obstructive pulmonary disease, unspecified; Z79.52 Long term (current) use of systemic steroids; Z79.899 Other long term (current) drug therapy

== ENCOUNTER 2022-04-27 10:15 | Inpatient (IN) ==
--- NOTE | 2022-04-27 10:54 | Emergency Department Note ---
History of Present Illness General Chief complaint: Shortness of Breath/Dyspnea Stated complaint: SOB, CONGESTED Time Seen by Provider: 04/27/22 10:21 Source: patient Mode of arrival: ambulatory Limitations: no limitations History of Present Illness Provider complaint: Shortness of breath Onset (ago): week(s) 1 Associated symptoms: + cough, + fever/chills, + malaise, + shortness of breath and + weakness; no chest pain, no headaches or no nausea/vomiting Treatments prior to arrival: other This is a 71-year-old female presents emergency department due to concern for worsening shortness of breath. Patient states she first began feeling short of breath 7 to 10 days ago, and her had also had a recent URI. She states due to her history of ongoing tobacco abuse and underlying COPD, she began taking prednisone 50 mg and Augmentin daily from a rescue pack that was previously prescribed for her at home. She does not use home oxygen. She states she has MDI/nebulizers to take however they were only as needed. Patient does not follow with pulmonology. She denies any coming chest pain, nausea or vomiting, abdominal pain. Patient denies any cardiac history. Patient states her appetite has been far less and she feels very weak and dizzy when she stands up. She denies trauma or injury. She denies overt fevers but states she has been very cold. She has been using Tylenol over the last several days additionally. She states she finished 1 week of the Augmentin and prednisone and her symptoms still were not improved, so she started taking Ceftin per the instructions of her rescue pack, and began 40 mg of prednisone daily. Pt seen during a time of high acuity and national emergency pandemic while wearing PPE. Home Medications Medication Instructions Recorded Confirmed Type ALBUTEROL HFA (VENTOLIN HFA) 2 - 4 puff inhalation Q6H #1 02/22/17 04/27/22 History inhaler ATORVASTATIN (LIPITOR) 10 mg PO DAILY #0 tabs 02/22/17 04/27/22 History Lisinopril (Prinivil) 20 mg PO BID #0 tabs 02/22/17 04/27/22 History Spironolactone (Aldactone) 50 mg PO BID #0 tabs 02/22/17 History Pantoprazole (Pantoprazole Sodium) 40 mg PO BID #60 tabs 02/26/17 04/27/22 Rx Allergies Allergy/AdvReac Type Severity Reaction Status Date / Time fentanyl Allergy Intermediate rash due Verified 02/22/17 18:12 to the patch nickel Allergy Unknown . Verified 02/22/17 18:12 Past Med/Surg History Medical History (Updated 04/27/22 @ 18:35 by Melissa Jasmine DO) Abnormal colonoscopy Carotid arterial disease COPD (chronic obstructive pulmonary disease) History of ulcerative colitis Hypertension Osteoporosis Tobacco use Family History (Updated 04/27/22 @ 14:20 by DAWN Hook) Sister Cancer Heart disease Social History Smoking Status: Current every day smoker Tobacco Type: Cigarettes Cigarettes Per Day: 20; Second Hand Exposure: No; Do You Dip or Chew Tobacco: No; Tobacco Cessation Education Requested by Patient: No Hx Alcohol Use: No Hx Substance Use: No Preferred Language: Grenadian Communication Ability: Effective Methods Specialist Engineer Required: No Beliefs That Will Affect Care: None Current Living Situation: Spouse Other Information That Helps Us Care for You: No Feels Safe at Home: Yes Safety Concerns: Feels Safe At This Time Assistive Devices: Glasses Review of Systems A total of 10 systems reviewed and were otherwise negative All systems reviewed & are unremarkable except as noted in HPI & below Physical Exam Vital Signs Vital Signs - 24 hr 04/27/22 10:17 04/27/22 10:39 04/27/22 10:42 Temperature 36.9 C Temperature Source Temporal Artery Scan Pulse Rate 104 H Pulse Rate [Apical] Pulse Rhythm Regular Pulse Rhythm [Apical] Pulse Strength [Apical] Respiratory Rate 18 Respiratory Effort / Characteristics Non-Labored Spontaneous Accessory Muscle Use Pursed Lip Respiratory Depth Normal Respiratory Pattern Regular Tachypnea Blood Pressure 107/51 L Blood Pressure [Right Arm] Blood Pressure Mean 69 Blood Pressure Mean [Right Arm] Blood Pressure Position Sitting Blood Pressure Position [Right Arm] Pulse Oximetry 96 Oxygen Delivery Method Room Air Room Air Fraction of Inspired Oxygen Sepsis Recent Fever Within 48 Hours Yes Sepsis New/Unexplained Change in Mental Status No Sepsis Action Taken by Nursing No Action Required 04/27/22 10:58 04/27/22 11:29 04/27/22 11:29 Temperature Temperature Source Pulse Rate 84 Pulse Rate [Apical] 90 85 Pulse Rhythm Pulse Rhythm [Apical] Regular Pulse Strength [Apical] Normal Respiratory Rate 22 26 H 26 H Respiratory Effort / Characteristics Accessory Muscle Use Labored Spontaneous Non-Labored Spontaneous Respiratory Depth Deep Normal Respiratory Pattern Regular Blood Pressure Blood Pressure [Right Arm] 114/79 Blood Pressure Mean Blood Pressure Mean [Right Arm] 90 Blood Pressure Position Blood Pressure Position [Right Arm] Lying Pulse Oximetry 97 100 100 Oxygen Delivery Method Room Air BiPAP Fraction of Inspired Oxygen 24 24 Sepsis Recent Fever Within 48 Hours Sepsis New/Unexplained Change in Mental Status Sepsis Action Taken by Nursing GENERAL: alert, well appearing, well nourished, no distress, non-toxic EYE EXAM: normal conjunctiva, PERRL and EOM's grossly intact OROPHARYNX: no exudate, no erythema, lips, buccal mucosa, and tongue normal and mucous membranes are moist NECK: supple, no nuchal rigidity, no adenopathy, non-tender LUNGS: Decreased bilaterally to auscultation. Normal chest wall mechanics, no w/r/r, increased work of breathing, pursed lip expiration HEART: no murmurs, S1 normal and S2 normal ABDOMEN: abdomen soft, non-tender, normo-active bowel sounds, no masses, no rebound or guarding. BACK: Back is symmetrical on inspection and there is no deformity, no midline tenderness, no CVA tenderness. SKIN: no rashes and no bruising UPPER EXTREMITIES: upper extremities are grossly normal. FROM, nml pulses b/l. LOWER EXTREMITIES: No pitting edema. FROM, nml pulses b/l. NEURO EXAM: Normal sensorium, cranial nerves II-XII grossly intact, normal speech, no gross weakness of arms, no gross weakness of legs. Gross sensation intact. Course Course 1159: Patient updated on results. Administered Medications Discontinued Medications Albuterol (Albut/Ipratrop 3mg/0.5mg Neb 3 Ml Vial) 12 ml NEB ONE ONE; Protocol Stop: 04/27/22 11:14 Last Admin: 04/27/22 11:25 Dose: 12 ml Documented By: YAKOV Sodium Chloride (Nss 1000ml) 1,000 mls @ 125 mls/hr IV .Q8H TRUPTI Stop: 05/27/22 10:59 Last Admin: 04/27/22 15:17 Dose: 125 mls/hr Documented By: Infusion: 04/27/22 13:45 Dose: 0 mls/hr Documented By: Admin: 04/27/22 10:55 Dose: 125 mls/hr Documented By: DAVONTE Levofloxacin/Dextrose (Levaquin/D5w) 750 mg in 150 mls @ 100 mls/hr IV NOW STA Stop: 04/27/22 13:29 Last Infusion: 04/27/22 13:45 Dose: 0 mls/hr Documented By: Admin: 04/27/22 12:16 Dose: 100 mls/hr Documented By: JIM Methylprednisolone (Methylprednisolone 125 Mg/2 Ml Vial) 60 mg IV NOW STA Stop: 04/27/22 12:10 Last Admin: 04/27/22 12:16 Dose: 60 mg Documented By: JIM Medical Decision Making Differential Diagnosis Differential diagnoses includes but is not limited to pneumonia, bronchitis, COPD/Asthma exacerbation, pneumothorax, pulmonary embolism, congestive heart failure, acute coronary syndrome Medical Records Attestation: I reviewed the patient's medical records. Home Medications Current Medication List: was personally reviewed by me Laboratory Data Attestation: I reviewed the patient's lab results. Result diagrams: 04/27/22 10:45 04/27/22 10:45 Lab Results 04/27/22 04/27/22 04/27/22 Range/Units 10:45 10:45 10:45 WBC 13.76 H (4.8-10.8) K/ul RBC 5.71 H (3.93-5.22) M/uL Hgb 17.2 H (12.0-16.0) g/dl Hct 51.8 H (34.1-44.9) % MCV 90.7 (80.0-100.0) fL MCH 30.1 (25.0-34.0) pg MCHC 33.2 (32.0-36.0) g/dL RDW Std Deviation 46.5 H (36.4-46.3) fL RDW Coeff of Haja 14.0 (11.5-14.5) % Plt Count 283 (130-400) K/uL MPV 9.8 (9.4-12.3) fL Immature Gran % (Auto) 0.7 % Neut % (Auto) 88.6 % Lymph % (Auto) 7.6 % [place] % (Auto) 2.7 % Eos % (Auto) 0.1 % Baso % (Auto) 0.3 % Neut # (Auto) 12.19 H (1.4-6.5) K/uL Lymph # (Auto) 1.05 L (1.2-3.4) K/uL [place] # (Auto) 0.37 (0.24-0.82) K/uL Eos # (Auto) 0.02 (0-0.50) K/uL Baso # (Auto) 0.04 (0-0.2) K/uL Immature Gran # (Auto) 0.09 H (0.00-0.02) K/uL Sodium 141 (136-145) mmol/L Potassium 3.6 (3.5-5.1) mmol/L Chloride 103 (98-107) mmol/L Carbon Dioxide 31 (21-32) mmol/L Anion Gap 7 (3-11) BUN 20 (6-23) mg/dl Creatinine 1.08 (0.6-1.2) mg/dl Est Cr Clr Drug Dosing 32.9 ml/min Est GFR ( Amer) 59.8 ml/min Est GFR (Non-Af Amer) 51.6 ml/min BUN/Creatinine Ratio 18.5 (10-20) Glucose 100 H (70-99(Fasting)) mg/dl Calcium 9.5 (8.5-10.1) mg/dl Magnesium 2.0 (1.7-2.4) mg/dl Total Bilirubin 0.5 (0.2-1.0) mg/dl AST 17 (13-39) U/L ALT 21 (7-52) U/L Alkaline Phosphatase 63 (34-104) U/L Troponin I High Sens 15.7 H (0-14) pg/ml B-Natriuretic Peptide (0-100) pg/ml Total Protein 7.1 (6.0-8.3) gm/dl Albumin 4.1 (3.4-5.0) gm/dl Globulin 3.0 (2.5-4.0) gm/dl Albumin/Globulin Ratio 1.4 (0.9-2) Lipase 38 (11-82) U/L Procalcitonin (0-0.5) ng/ml TSH 1.417 (0.300-4.500) uIu/ml SARS-CoV-2 (PCR) (Negative) Influenza Type A (PCR) (Neg) Influenza Type B (PCR) (Neg) RSV (RT-PCR) (Neg) 04/27/22 04/27/22 04/27/22 Range/Units 10:45 10:52 11:24 WBC (4.8-10.8) K/ul RBC (3.93-5.22) M/uL Hgb (12.0-16.0) g/dl Hct (34.1-44.9) % MCV (80.0-100.0) fL MCH (25.0-34.0) pg MCHC (32.0-36.0) g/dL RDW Std Deviation (36.4-46.3) fL RDW Coeff of Haja (11.5-14.5) % Plt Count (130-400) K/uL MPV (9.4-12.3) fL Immature Gran % (Auto) % Neut % (Auto) % Lymph % (Auto) % [place] % (Auto) % Eos % (Auto) % Baso % (Auto) % Neut # (Auto) (1.4-6.5) K/uL Lymph # (Auto) (1.2-3.4) K/uL [place] # (Auto) (0.24-0.82) K/uL Eos # (Auto) (0-0.50) K/uL Baso # (Auto) (0-0.2) K/uL Immature Gran # (Auto) (0.00-0.02) K/uL Sodium (136-145) mmol/L Potassium (3.5-5.1) mmol/L Chloride (98-107) mmol/L Carbon Dioxide (21-32) mmol/L Anion Gap (3-11) BUN (6-23) mg/dl Creatinine (0.6-1.2) mg/dl Est Cr Clr Drug Dosing ml/min Est GFR ( Amer) ml/min Est GFR (Non-Af Amer) ml/min BUN/Creatinine Ratio (10-20) Glucose (70-99(Fasting)) mg/dl Calcium (8.5-10.1) mg/dl Magnesium (1.7-2.4) mg/dl Total Bilirubin (0.2-1.0) mg/dl AST (13-39) U/L ALT (7-52) U/L Alkaline Phosphatase (34-104) U/L Troponin I High Sens (0-14) pg/ml B-Natriuretic Peptide 118 H (0-100) pg/ml Total Protein (6.0-8.3) gm/dl Albumin (3.4-5.0) gm/dl Globulin (2.5-4.0) gm/dl Albumin/Globulin Ratio (0.9-2) Lipase (11-82) U/L Procalcitonin < 0.05 (0-0.5) ng/ml TSH (0.300-4.500) uIu/ml SARS-CoV-2 (PCR) NEGATIVE (Negative) Influenza Type A (PCR) Negative (Neg) Influenza Type B (PCR) Negative (Neg) RSV (RT-PCR) Negative (Neg) Imaging Data Radiologist's Impression: Chest X-Ray 04/27/22 10:47 XR chest 1V portable CLINICAL HISTORY: Shortness of breath. COMPARISON STUDY: Chest CT October 06, 2006. Chest radiograph February 24, 2017. FINDINGS: No pneumothorax or pleural effusion is present. No evidence for pulmonary edema. Mild cardiomegaly is noted. Equivocal 7 mm right upper lobe nodule. This is likely due to summation artifact. Underlying emphysema is better depicted on prior CT. IMPRESSION: 1. No acute cardiopulmonary findings. 2. Equivocal 7 mm right upper lobe nodule. This is likely due to summation artifact. However, a nonemergent chest CT is recommended to exclude a pulmonary nodule. ACT 112: Negative or not required by law. Electronically signed by: Juan Walsh M.D. 04/27/2022 11:33 AM ECG Data Attestation: I personally reviewed and interpreted this ECG as follows: Indication: + SOB/dyspnea Rate (beats per minute): 89 Rhythm: + normal sinus ECG Intervals/blocks: + Normal QRS and + Normal QT ECG Berk[place]: + Normal ECG ST segments: + Nonspecific ST abnormalities MDM Narrative An order was placed for continuous cardiac monitoring. The monitor shows a rate of 80__ with _normal sinus__ rhythm. This is a 71-year-old female presents emergency department with concern for worsening shortness of breath despite outpatient treatment with antibiotics and steroids. Patient not hypoxic on arrival but did have slight tachypnea and increased work of breathing. Patient does continue to smoke and has a known diagnosis of COPD. Continuous nebulizer was started with the aid of BiPAP to help alleviate her work of breathing. Labs drawn and sent, chest x-ray performed. EKG without acute changes. Chest x-ray reassuring. Patient with mild dehydration clinically, does appear to be hemoconcentrated looking at the CBC. Mildly elevated troponin suspect secondary to her work of breathing and demand. We discussed all results at bedside. Patient given Levaquin here as well as additional steroids. COVID swab sent. Case discussed with hospitalist for additional evaluation management. At this time I do not suspect PE, dissection, pericardial effusion, pericarditis/myocarditis, or aspiration. Impression & Plan Dyspnea, Tobacco use, COPD (chronic obstructive pulmonary disease), Failure of outpatient treatment Discharge Plan Visit Data Chief Complaint: Shortness of Breath/Dyspnea Stated Complaint: SOB, CONGESTED ED Provider: Melissa Jasmine Discharge Problem: Dyspnea, Tobacco use, COPD (chronic obstructive pulmonary disease), Failure of outpatient treatment Patient Disposition: Admitted As Inpatient Discharge Instructions Interventions: ED Discharge Assessment Last Done: 04/27/22 13:33
[2022-04-27] MEDS: SODIUM CHLORIDE 0.9% 1000ML 1,000 ML IV SCH ×3 (10:55→15:17)
[2022-04-27 11:08] LABS: Basophils # (auto) 0.04 K/uL (0-0.2); Basophils % (auto) 0.3 %; Eosinophils # (auto) 0.02 K/uL (0-0.50); Eosinophils % (auto) 0.1 %; Hematocrit (blood only) 51.8 % (34.1-44.9); Hemoglobin 17.2 g/dl (12.0-16.0); Immature Granulocytes # (auto) 0.09 K/uL (0.00-0.02); Immature Granulocytes % (auto) 0.7 %; Lymphocytes # (auto) 1.05 K/uL (1.2-3.4); Lymphocytes % (auto) 7.6 %; Mean Corpuscular Hemoglobin 30.1 pg (25.0-34.0); Mean Corpuscular Hgb Conc 33.2 g/dL (32.0-36.0); Mean Corpuscular Volume 90.7 fL (80.0-100.0); Mean Platelet Volume 9.8 fL (9.4-12.3); Monocytes # (auto) 0.37 K/uL (0.24-0.82); Monocytes % (auto) 2.7 %; Neutrophils # (auto) 12.19 K/uL (1.4-6.5); Neutrophils % (auto) 88.6 %; Platelet Count 283 K/uL (130-400); RDW Standard Deviation 46.5 fL (36.4-46.3); Red Blood Count 5.71 M/uL (3.93-5.22); White Blood Count 13.76 K/ul (4.8-10.8)
[2022-04-27] MEDS ORDERED: ALBUT/IPRATROP 3MG/0.5MG NEB 3 ML VIAL NEB ONE (11:13)
--- NOTE | 2022-04-27 11:35 | XRay Report ---
XR chest 1V portable CLINICAL HISTORY: Shortness of breath. COMPARISON STUDY: Chest CT October 06, 2006. Chest radiograph February 24, 2017. FINDINGS: No pneumothorax or pleural effusion is present. No evidence for pulmonary edema. Mild cardi omegaly is noted. Equivocal 7 mm right upper lobe nodule. This is likely due to summation artifact. U nderlying emphysema is better depicted on prior CT. IMPRESSION: 1. No acute cardiopulmonary findings. 2. Equivocal 7 mm right upper lobe nodule. This is likely due to summation artifact. However, a nonem ergent chest CT is recommended to exclude a pulmonary nodule. ACT 112: Negative or not required by law. Electronically signed by: Juan Walsh M.D. 04/27/2022 11:33 AM
[2022-04-27 11:37] LABS: Albumin Globulin Ratio 1.4 (0.9-2); Albumin Level 4.1 gm/dl (3.4-5.0); BUN Creatinine Ratio 18.5 (10-20); Bilirubin,Total 0.5 mg/dl (0.2-1.0); Calcium 9.5 mg/dl (8.5-10.1); Creatinine Clr Calc Pharmacy 32.9 ml/min; Est GFR (African American) 59.8 ml/min; Est GFR (Non-African American) 51.6 ml/min; Potassium 3.6 mmol/L (3.5-5.1); Total Protein 7.1 gm/dl (6.0-8.3)
[2022-04-27 11:39] LABS: Troponin I High Sensitivity 15.7 pg/ml (0-14)
[2022-04-27] MEDS ORDERED: levoFLOXacin/D5W 750 MG/150 ML BAG IV STA (12:00)
[2022-04-27] MEDS ORDERED: methylPREDNISolone 125 MG/2 ML VIAL IV STA (12:09)
[2022-04-27 12:26] LABS: Influenza A virus by PCR Negative (Neg); Influenza B virus by PCR Negative (Neg); RSV by PCR Negative (Neg); SARS CoV2 RNA(COVID-19) InHosp NEGATIVE (Negative)
--- NOTE | 2022-04-27 12:38 | Electrocardiogram Report ---
Test Reason : Blood Pressure : / mmHG Vent. Rate : 089 BPM Atrial Rate : 089 BPM P-R Int : 138 ms QRS Dur : 078 ms QT Int : 306 ms P-R-T Axes : 080 053 084 degrees QTc Int : 372 ms Poor data quality, interpretation may be adversely affected Normal sinus rhythm Biatrial enlargement Left ventricular hypertrophy with repolarization abnormality Abnormal ECG When compared with ECG of 22-FEB-2017 17:30, T wave inversion now evident in Anterior leads Confirmed by Tanmay Booker ([id number]) on 04/27/2022 12:37:30 PM Referred By: REFERRED SELF Confirmed By:Alejandro Booker
--- NOTE | 2022-04-27 12:44 | History & Physical Report ---
Date of Service April 27, 2022 Assessment & Plan (1) COPD (chronic obstructive pulmonary disease): (2) Hypertension: (3) History of ulcerative colitis: (4) Tobacco use: Plan Melissa Navas is a 71 year old female who presented to the [facility] ED with increasing SOB that she has been experiencing x 1 week. She started to take her previously prescribed Prednisone 50 mg and Augmentin. She did not experience relief; so started to take Ceftin 2 days ago with a reduced dose of Prednisone of 40 mg PO daily. She has a diagnosis of COPD; however, does not follow with a precision optics technician, nor does she have home supplemental O2/CPAP. She is a current and avid smoker of about 1-1.5 ppd with a 37 pack year history with no intent to abstain from smoking. Patient will be admitted for acute on chronic COPD exacerbation. COPD Exacerbation: Tobacco Use: -SOB x1 week. Took medications she had at home; Prednisone 50 mg and Augmentin. She did not experience relief; so started to take Ceftin 2 days ago with a reduced dose of Prednisone of 40 mg PO daily. -Not established with [facility]; would benefit from consultation for continuation of care. -Pt with no interest in smoking cessation; 1-1.5 ppd with a 37 pack year history. Does not wear supplemental O2 at home. -Pt WBC 13.76; procalcitonin negative; CXR without pleural effusion -Was started on IV Levaquin in the ED; sputum culture ordered and pending. If blood and sputum cultures are positive; will continue IV Abx. -Start Solumedrol 40 mg IV BID. -Consult Pulmonology; only has rescue inhaler at home and no PFT's documented. Case discussed with Dr. Fall. -Repeat CXR in AM. HTN: -Takes Lisinopril; however, reports that she takes her dose based on her BP and appears non compliant. -Pt reports she takes it if her B/P is 160. -0.9% NS started in ED; 125mL/hour x 1 bag. Reevaluate fluid status tmw. CAD: -Non compliant with follow up. -Troponin mildly elevated 15.7; will obtain repeat and if negative, no need for further serial trops. -No signs of chest pain or ACS. -Consider Cardiology for work up; patient declines at this time. Dyslipidemia: -Takes Lipitor 10 mg PO QD. History of Ulcerative Colitis: -Does not follow with any Metallurgy Teacher or GI. -No signs of exacerbation. Disposition: PCP: Dr. Leonard POA: , Dixon Navas Code Status: DNR/DNI; does have formal POA paperwork at home. Upon DC plan is to return home; 2 story house with all sleeping/bathing upstairs . 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 She started to take her previously prescribed Prednisone 50 mg and Augmentin. She did not experience relief; so started to take Ceftin 2 days ago with a reduced dose of Prednisone of 40 mg PO daily. She has a diagnosis of COPD; however, does not follow with a precision optics technician, nor does she have home supplemental O2/CPAP. She is a current and avid smoker of about 1-1.5 ppdwith a 37 pack year history with no intent to abstain from smoking. In the ED, the patient was started on Levaquin IV and was placed on Bipap for a continuous one hour Albuterol/Ipratropium nebulizer treatment, with IV Solumedrol initiated. Additional PMH includes Ulcerative Colitis (does not follow GI - last colonoscopy in 2010 revealed some mild inflammation), GERD, and osteoporosis. Pt denies CP, dizziness, recent falls/trauma, palpitations, anxiety, visual or hearing changes, bowel habit changes, urinary changes or skin changes. Patient will be admitted for acute on chronic COPD exacerbation. Please see A/P for further details. ;' Allergies Allergy/AdvReac Type Severity Reaction Status Date / Time fentanyl Allergy Intermediate rash due Verified 02/22/17 18:12 to the patch nickel Allergy Unknown . Verified 02/22/17 18:12 Home Medications Medication Instructions Recorded Confirmed Type ALBUTEROL HFA (VENTOLIN HFA) 2 - 4 puff inhalation Q6H #1 02/22/17 04/27/22 History inhaler ATORVASTATIN (LIPITOR) 10 mg PO DAILY #0 tabs 02/22/17 04/27/22 History Lisinopril (Prinivil) 20 mg PO BID #0 tabs 02/22/17 04/27/22 History Spironolactone (Aldactone) 50 mg PO BID #0 tabs 02/22/17 History Pantoprazole (Pantoprazole Sodium) 40 mg PO BID #60 tabs 02/26/17 04/27/22 Rx fluticasone furoate 200 1 ea inhalation DAILY #60 ea 04/29/22 Rx mcg-vilanterol 25 mcg/dose inhalation powder (Breo Ellipta) tiotropium bromide 1.25 2 inh inhalation DAILY #4 grams 04/29/22 Rx mcg/actuation mist for inhalation (Spiriva Respimat) Past Med/Surg History Medical History (Updated 04/28/22 @ 09:58 by Kin Fall MD) Abnormal colonoscopy Acute dyspnea Carotid arterial disease COPD (chronic obstructive pulmonary disease) COPD exacerbation History of ulcerative colitis Hypertension Lower extremity weakness Osteoporosis Tobacco abuse counseling Tobacco use Family History (Updated 04/27/22 @ 14:20 by DAWN Hook) Sister Cancer Heart disease Social History Smoking Status: Current every day smoker Tobacco Type: Cigarettes Cigarettes Per Day: 20; Second Hand Exposure: No; Hx Alcohol Use: No Hx Substance Use: No Preferred Language: Nepali Communication Ability: Effective Automatic Pattern Edger Required: No Beliefs That Will Affect Care: None Current Living Situation: Spouse Feels Safe at Home: Yes Assistive Devices: None Review of Systems Review of Systems: Neuro: (-) Falls, trauma, slurred speech HEENT: (-) GUZMAN, dizziness, dysphagia, visual or auditory changes CV: (-) CP, palpitations, swelling Resp: (+) SOB GI: (+) decreased appetite, N/V/D, bowel changes : (-) urinary changes Skin: (-) rashes Psych: (-) anxiety, depression Physical Exam Physical Exam: Neuro: AAOx4, PERRLA, no aphagia, memory changes, CNII-XII grossly intact HEENT: head normocephalic, moist mucus membranes CV: S1/S2, (-) M/G/R, (-) edema, cap refill < 3 seconds Resp: On RA now; Expiratory wheezes in left lung jensen GI: Abdomen S/NT/ND, Ax4 bowel sounds, (-) CVA tenderness Musculoskeletal: 5/5 B/L UE strength, 5/5 B/L LE strength. No gait disturbance Skin: (-) rashes , (-) erythema. Psych: euthymic mood Results & Data Results & Data ([facility]) Vital Signs (Past 12 Hours) Vital Signs Temp Pulse Pulse Resp BP BP Pulse Ox 04/27/22 11:29 84 26 H 100 04/27/22 11:29 85 26 H 100 04/27/22 10:58 90 22 114/79 97 04/27/22 10:42 04/27/22 10:17 36.9 C 104 H 18 107/51 L 96 O2 Del Method FiO2 04/27/22 11:29 24 04/27/22 11:29 BiPAP 24 04/27/22 10:58 Room Air 04/27/22 10:42 Room Air 04/27/22 10:17 Room Air Laboratory Results Short CBC 04/27/22 Range/Units 10:45 WBC 13.76 H (4.8-10.8) K/ul Hgb 17.2 H (12.0-16.0) g/dl Hct 51.8 H (34.1-44.9) % Plt Count 283 (130-400) K/uL BMP 04/27/22 10:45 Sodium 141 Potassium 3.6 Chloride 103 Carbon Dioxide 31 BUN 20 Creatinine 1.08 Glucose 100 H Calcium 9.5 Liver Function 04/27/22 Range/Units 10:45 Total Bilirubin 0.5 (0.2-1.0) mg/dl AST 17 (13-39) U/L ALT 21 (7-52) U/L Alkaline Phosphatase 63 (34-104) U/L Albumin 4.1 (3.4-5.0) gm/dl Diagnostic Findings Chest X-Ray 04/27/22 10:47 XR chest 1V portable CLINICAL HISTORY: Shortness of breath. COMPARISON STUDY: Chest CT October 06, 2006. Chest radiograph February 24, 2017. FINDINGS: No pneumothorax or pleural effusion is present. No evidence for pulmonary edema. Mild cardiomegaly is noted. Equivocal 7 mm right upper lobe nodule. This is likely due to summation artifact. Underlying emphysema is better depicted on prior CT. IMPRESSION: 1. No acute cardiopulmonary findings. 2. Equivocal 7 mm right upper lobe nodule. This is likely due to summation artifact. However, a nonemergent chest CT is recommended to exclude a pulmonary nodule. ACT 112: Negative or not required by law. Electronically signed by: Juan Walsh M.D. 04/27/2022 11:33 AM ECG Additional Comments: Normal Sinus Rhythm: 89 BPM P-R Int : 138 ms QRS Dur : 078 ms QT Int : 306 ms QTc Int : 372 ms Normal sinus rhythm Left ventricular hypertrophy with repolarization abnormality Code Status & VTE Plan Code Status DNR/DNI in the event of cardiac or respiratory arrest. VTE Prophylaxis Plan VTE Prophylaxis will be ordered: Yes Supervising Physician Co-Signing Physician Notes Pt was seen and examined. Agreed with Amber SEYMOUR exam, assessment and plan. 71 year old female who presented to the [facility] ED with increasing SOB associated with productive cough. She said that SOB worsening with exertion. She completed a course of Augmentin and prednisone 50mg with no relief. She just started a course of Ceftin and prednisone. In the ER pt was saturated in the 60%. CXR in the ER showed Equivocal 7 mm right upper lobe nodule. She was laced on Bipap. Received IV levaquin and IV solumedrol in the ER. Will continue Solumedrol 40m IV BID. Will consult pulm. Will check blood cx and sputum cx. If positive, will start on abx. Continue neb treatment. Flutter valve and incentive spirometry. Lung nodule seen in CXR, will need a nonemergent chest CT is recommended to exclude a pulmonary nodule. Continue monitor closely. MD Mir
[2022-04-27] MEDS ORDERED: SODIUM CHLORIDE 0.9% 1000ML 1,000 ML IV SCH (16:00)
[2022-04-27] MEDS: methylPREDNISolone 40 MG in SYRINGE 0 ML IV SCH (19:49)
[2022-04-28] MEDS: methylPREDNISolone 40 MG in SYRINGE 0 ML IV SCH ×2 (07:59→20:12)
--- NOTE | 2022-04-28 08:03 | XRay Report ---
XR chest 1V portable CLINICAL HISTORY: Wheezing. Shortness of breath. COMPARISON STUDY: Chest radiograph April 27, 2022. FINDINGS: Lung volumes are normal. Lungs are clear. There is no pneumothorax or pleural effusion. Car diac size is normal. Mediastinal contours are normal. There is no evidence for pulmonary edema. Sligh t interstitial prominence is likely within normal limits. IMPRESSION: 1. No acute cardiopulmonary findings. No consolidation to suggest pneumonia. 2. Slight interstitial prominence, likely within normal limits. ACT 112: Negative or not required by law. Electronically signed by: Juan Walsh M.D. 04/28/2022 8:02 AM
[2022-04-28 08:21] LABS: Basophils # (auto) 0.01 K/uL (0-0.2); Basophils % (auto) 0.1 %; Hematocrit (blood only) 49.1 % (34.1-44.9); Immature Granulocytes # (auto) 0.09 K/uL (0.00-0.02); Immature Granulocytes % (auto) 0.7 %; Lymphocytes % (auto) 7.9 %; Mean Corpuscular Hgb Conc 32.6 g/dL (32.0-36.0); Mean Corpuscular Volume 92.1 fL (80.0-100.0); Mean Platelet Volume 9.7 fL (9.4-12.3); Monocytes # (auto) 1.07 K/uL (0.24-0.82); Monocytes % (auto) 8.5 %; Neutrophils # (auto) 10.42 K/uL (1.4-6.5); Neutrophils % (auto) 82.8 %; Platelet Count 243 K/uL (130-400); RDW Coefficient of Variation 13.8 % (11.5-14.5); RDW Standard Deviation 46.7 fL (36.4-46.3); Red Blood Count 5.33 M/uL (3.93-5.22); White Blood Count 12.59 K/ul (4.8-10.8)
[2022-04-28 08:45] LABS: BUN Creatinine Ratio 25.3 (10-20); Calcium 8.9 mg/dl (8.5-10.1); Creatinine Clr Calc Pharmacy 44.9 ml/min; Est GFR (African American) 82.2 ml/min; Est GFR (Non-African American) 70.9 ml/min; Potassium 3.9 mmol/L (3.5-5.1)
[2022-04-28] MEDS ORDERED: AZITHROMYCIN 250 MG TAB PO ONE (09:52)
--- NOTE | 2022-04-28 09:53 | Pulmonary Consultation ---
Date of Consultation April 28, 2022 Assessment & Plan (1) COPD exacerbation: Patient clinically presents with a COPD exacerbation. No outpatient PFTs or CT chest imaging for review. No evidence of pneumonia on chest x-ray or based on procalcitonin. Will cover for atypical organisms nonetheless with azithromycin for a total of 5 days. Agree with methylprednisone for today and transition to p.o. prednisone starting tomorrow. Would recommend a course of 5 to 7 days of prednisone. Patient is very reluctant to start medications or maintenance inhalers. We will trial Breo Ellipta and Incruse Ellipta while an inpatient. We will also place the patient on scheduled nebs for today. Recommend that she be discharged home on Trelegy 100 mcg daily and be prescribed a nebulizer upon discharge. Flutter valve and incentive spirometer ordered as well to promote pulmonary toilet. She would benefit from outpatient PFTs and low-dose CT chest imaging to establish a pulmonary physiology baseline and screen for lung cancer, respectively. Will need a walk test to evaluate for oxygen prior to discharge. She is at risk for CO2 retention given her elevated serum bicarbonate, but adamantly refuses to wear BiPAP. We will need to consider reevaluating this in the future if she continues to have exacerbations. Sputum and blood cultures pending. (2) Tobacco abuse counseling: Strongly encouraged complete smoking cessation discussed smoking cessation aids. Patient is not interested in smoking cessation and notes that she understands the risks of continued smoking. (3) Acute dyspnea: Likely secondary to the COPD exacerbation. Difficult to rule out coronary ischemia. Recommend evaluation for coronary ischemia such as stress echo. Troponin was mildly elevated. Consider the addition of aspirin. (4) Lower extremity weakness: Unclear etiology. Will defer to the primary team for further evaluation. Plan Please call with questions. Thank you for allowing us to participate in the care of this patient. History of Present Illness Reason for Consultation: COPD exacerbation Attending Physician: Lorena Hester MD History of Present Illness 71-year-old female with a past medical history of tobacco abuse, GERD and hypertension presenting to the hospital due to increasing weakness in her lower extremities over the past 10 days and increasing shortness of breath. Patient notes that she had cefitin and Augmentin at home which she took for a couple of days with minimal relief of symptoms. She was also taking prednisone. She notes that she has been having a slight increase in cough. She denies any hemoptysis. She does complain of chronic shortness of breath that has been made worse over the past 10 days. She does not have home oxygen. She does not use any maintenance inhalers. She notes that she used albuterol on a as needed basis occasionally 1-2 times per day. 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 Notes that she has been smoking roughly 1 pack/day since age of 15. She is not interested in quitting smoking at this time. She notes that she was hospitalized roughly 10 to 15 years ago for prolonged period of time in the ICU. She denies ever being on a ventilator. She denies any formal work-up for COPD. Day, she feels that the weakness in her extremities has improved. She denies any chest tightness, fevers or chills. Minimal cough. No wheeze. She is eager to go home. 's x-ray on admission was negative for acute infiltrate. There was hyperinflation with flattening of the diaphragms noted. Labs suggest a mild leukocytosis. Serum bicarbonate is elevated at 28. proBNP was elevated to 118. High-sensitivity troponin was 15.7. Procalcitonin was less than 0.05. She was started on methylprednisone 40 mg twice daily. She also received a dose of levofloxacin in the ER. Pending EKG demonstrated T wave inversions in the anterior leads and LVH. Allergies Allergy/AdvReac Type Severity Reaction Status Date / Time fentanyl Allergy Intermediate rash due Verified 02/22/17 18:12 to the patch nickel Allergy Unknown . Verified 02/22/17 18:12 Home Medications Medication Instructions Recorded Confirmed Type ALBUTEROL HFA (VENTOLIN HFA) 2 - 4 puff inhalation Q6H #1 02/22/17 04/27/22 History inhaler ATORVASTATIN (LIPITOR) 10 mg PO DAILY #0 tabs 02/22/17 04/27/22 History Lisinopril (Prinivil) 20 mg PO BID #0 tabs 02/22/17 04/27/22 History Spironolactone (Aldactone) 50 mg PO BID #0 tabs 02/22/17 History Pantoprazole (Pantoprazole Sodium) 40 mg PO BID #60 tabs 02/26/17 04/27/22 Rx Patient History Medical History (Updated 04/28/22 @ 09:58 by Kin Fall MD) Abnormal colonoscopy Acute dyspnea Carotid arterial disease COPD (chronic obstructive pulmonary disease) COPD exacerbation History of ulcerative colitis Hypertension Lower extremity weakness Osteoporosis Tobacco abuse counseling Tobacco use Family History (Updated 04/27/22 @ 14:20 by DAWN Hook) Sister Cancer Heart disease Social History Smoking Status: Current every day smoker Tobacco Type: Cigarettes Cigarettes Per Day: 20; Second Hand Exposure: No; Do You Dip or Chew Tobacco: No; Tobacco Cessation Education Requested by Patient: No Hx Alcohol Use: No Hx Substance Use: No Preferred Language: Somali Communication Ability: Effective Engineering [employer] Required: No Beliefs That Will Affect Care: None Current Living Situation: Spouse Other Information That Helps Us Care for You: No Feels Safe at Home: Yes Safety Concerns: Feels Safe At This Time Assistive Devices: Glasses Review of Systems Review of Systems: All systems reviewed & are unremarkable except as noted in HPI & below Physical Exam Physical Exam: Constitutional: Thin and elderly appearing female no apparent distress. Eyes: Pupils are equal round and reactive to light. Conjunctivae are normal. Anicteric sclera. Ears nose, mouth and throat: No obvious deformities on gross exam. Neck: Trachea is midline. Visual inspection is normal. Respiratory: Clear to auscultation bilaterally. Prolonged phase of exhalation. No tachypnea noted. No conversational dyspnea. Cardiovascular: Regular rate and rhythm. No murmurs. No edema. Gastrointestinal: Normal bowel sounds, soft, nontender and nondistended. No hepatosplenomegaly noted. Musculoskeletal: No cyanosis. Patient is able to move all extremities. Skin: No rashes, warm dry and intact. Neurologic: No obvious focal neurological deficits seen. Psychiatric: Alert and oriented x3 with a euthymic affect. Results & Data Results & Data ([facility]) Vital Signs (Past 12 Hours) Vital Signs Temp Pulse Pulse Resp BP Pulse Ox O2 Del Method 04/28/22 08:12 36.7 C 84 18 131/70 97 Room Air 04/28/22 02:23 36.6 C 75 20 120/84 96 Room Air 04/27/22 22:51 81 04/27/22 22:34 36.6 C 80 20 127/91 95 Room Air PG Care Time/CCT Total # of Minutes Spent Total Time Spent with Patient: Total time spent is greater than 50% in coordination of care (as documented) at patient's floor/unit and/or counseling patient: Coding Level of Care Code 86692 Initial Inpt Care Lvl 3 Diagnoses COPD exacerbation J44.1 Tobacco abuse counseling Z71.6 Acute dyspnea R06.00 Lower extremity weakness R29.898
[2022-04-28] MEDS: FLUTICASONE/VILANTEROL 200/25MCG 14 PUFFS/INHALER INH SCH (10:54)
[2022-04-28] MEDS: UMECLIDINIUM BROMIDE 62.5MCG/BLISTER 7 PUFFS/INHALER INH SCH (10:55)
[2022-04-28] MEDS: ALBUT/IPRATROP 3MG/0.5MG NEB 3 ML VIAL NEB SCH ×2 (11:29→15:08)
--- NOTE | 2022-04-28 11:33 | Hospitalist Progress Note ---
Date of Service April 28, 2022 Assessment & Plan (1) COPD (chronic obstructive pulmonary disease): (2) Hypertension: (3) History of ulcerative colitis: (4) Tobacco use: Plan 71 yo Female with PMH of tobaco abuse Present on admission with worsening SOB for about 1 week . COPD Exacerbation: At home she took Prednisone 50 mg and Augmentin for 7 days with no relief then started Ceftin 2 days ago with Prednisone of 40 mg PO daily. CXR showed no acute cardiopulmonary findings. WBC 13.76; procalcitonin negative on admission Received IV Solu-Medrol 60 mg and Levaquin IV on admission Currently on IV Solu-Medrol 40 mg IV twice daily, will transition to p.o. prednisone 40 mg daily tomorrow Pulmonology on board recommended a course of 5 to 7 days of prednisone. Azithromycin added to cover for atypical organisms per pulmonology Started on Breo Ellipta and Incruse Ellipta while an inpatient. Then will transition to Trelegy 100 mcg daily on discharge. Continue Flutter valve and incentive spirometer Patient has been refused nebulizer treatment and she told staff respiratory therapist do not come back to ask her again about the neb treatment Consider outpatient PFT Will need a two-step exercise on discharge Clinically improved significantly Tobacco Use: Patient said she does not have any intention to quit smoking counseling on smoking cessation Consider outpatient low-dose CT to screen for lung cancer HTN: Takes Lisinopril; however, reports that she takes her dose based on her BP and appears non compliant. Pt reports she takes it if her B/P is 160. Will add Lisinopril 20mg daily Continue monitor BP Elevated Troponin Troponin mildly elevated 15.7 on admission No signs of chest pain or ACS. Will get a resting echo Continue monitor Dyslipidemia: On Lipitor 10 mg PO QD. History of Ulcerative Colitis: Does not follow with GI. No signs of exacerbation. Disposition: Plan to discharge home tomorrow Will need a 2 step exercise Code Status: DNR/DNI Admission and Anticipated Discharge Date Admission Date: April 27, 2022 Subjective Patient was seen and evaluated for follow-up of shortness of breath Lying in bed with no acute distress Patient said that her breathing feels much better today She refused to do the nebulizer treatment Denies any chest pain, palpitation, dizziness, shortness of breath. Review of Systems Review of Systems: All systems reviewed & are unremarkable except as noted in Subjective Physical Exam Physical Exam: General- No acute distress, cachectic Head- atraumatic Eyes- PERRL, EOMI, ENT- oropharynx clear Neck- supple, no JVD Lungs- clear to auscultation Heart- regular rhythm; no murmur Abdomen- normal bowel sounds, soft, nontender Extremities- no calf tenderness Neuro- alert, oriented x 3; PERRL, EOMI; no facial palsy; no dysarthria Skin- warm & dry Results & Data Results & Data ([facility]) Vital Signs (Past 12 Hours) Vital Signs Temp Pulse Pulse Resp BP Pulse Ox O2 Del Method 04/28/22 08:00 76 04/28/22 08:00 Room Air 04/28/22 08:12 36.7 C 84 18 131/70 97 Room Air 04/28/22 02:23 36.6 C 75 20 120/84 96 Room Air
[2022-04-28] MEDS ORDERED: ALBUT/IPRATROP 3MG/0.5MG NEB 3 ML VIAL NEB PRN (15:26)
[2022-04-29] MEDS: FLUTICASONE/VILANTEROL 200/25MCG 14 PUFFS/INHALER INH SCH (07:34)
[2022-04-29] MEDS: UMECLIDINIUM BROMIDE 62.5MCG/BLISTER 7 PUFFS/INHALER INH SCH (07:34)
[2022-04-29] MEDS ORDERED: ATORVASTATIN 10 MG TAB PO SCH (09:00)
[2022-04-29] MEDS ORDERED: AZITHROMYCIN 250 MG TAB PO SCH (09:00)
[2022-04-29] MEDS ORDERED: lisinopril 20 MG TAB PO SCH (09:00)
[2022-04-29] MEDS ORDERED: predniSONE 20 MG TAB PO SCH (09:00)
--- NOTE | 2022-04-29 09:12 | Hospitalist Progress Note ---
Date of Service April 29, 2022 Assessment & Plan (1) COPD (chronic obstructive pulmonary disease): (2) Hypertension: (3) History of ulcerative colitis: (4) Tobacco use: Plan 71 yo Female with PMH of tobaco abuse Present on admission with worsening SOB for about 1 week . COPD Exacerbation: At home she took Prednisone 50 mg and Augmentin for 7 days with no relief then started Ceftin 2 days ago with Prednisone of 40 mg PO daily. CXR showed no acute cardiopulmonary findings. WBC 13.76; procalcitonin negative on admission Received IV Solu-Medrol 60 mg and Levaquin IV on admission Currently on IV Solu-Medrol 40 mg IV twice daily, will transition to p.o. prednisone 40 mg daily Pulmonology on board recommended a course of 5 to 7 days of prednisone. Azithromycin added to cover for atypical organisms per pulmonology Started on Breo Ellipta and Incruse Ellipta while an inpatient. Then will transition to Trelegy 100 mcg daily on discharge. Continue Flutter valve and incentive spirometer Patient has been refusing nebulizer treatment and she told staff respiratory therapist to not come back to ask her again about the neb treatment Consider outpatient PFT 2-step test done, no need for suppl. O2 Clinically improved significantly Tobacco Use: Patient said she does not have any intention to quit smoking counseling on smoking cessation Consider outpatient low-dose CT to screen for lung cancer HTN: Takes Lisinopril; however, reports that she takes her dose based on her BP and appears non compliant. Pt reports she takes it if her B/P is 160. added Lisinopril 20mg daily Continue monitor BP Elevated Troponin Troponin mildly elevated 15.7 on admission No signs of chest pain or ACS. resting echo obtained -there is moderate concentric LVH. LV systolic function is normal. EF 55 to 60%. Grade 1 diastolic dysfunction. RV systolic function is normal. LA size is normal. RA size is normal. Trace aortic regurg. There is trace mitral regurg. There is aortic root sclerosis/calcification. Continue monitor Dyslipidemia: On Lipitor 10 mg PO QD. History of Ulcerative Colitis: Does not follow with GI. No signs of exacerbation. Disposition: Plan to discharge home Code Status: DNR/DNI Admission and Anticipated Discharge Date Admission Date: April 27, 2022 Subjective Patient was seen and evaluated for follow-up of shortness of breath, COPD exacerb. Sitting up in bed in no acute distress Patient says that her breathing feels much better She refuses nebulizer treatment Denies any chest pain, palpitation, dizziness, shortness of breath. 2 step ordered - no suppl. O2 needed Review of Systems Review of Systems: All systems reviewed & are unremarkable except as noted in Subjective Physical Exam Physical Exam: General- No acute distress, cachectic Head- atraumatic Eyes- PERRL, EOMI, ENT- oropharynx clear Neck- supple, no JVD Lungs- clear to auscultation Heart- regular rhythm; no murmur Abdomen- normal bowel sounds, soft, nontender Extremities- no calf tenderness, moves extremities Neuro- alert, oriented x 3; PERRL, EOMI; no facial palsy; no dysarthria, moves extremities Skin- warm & dry Results & Data Results & Data ([facility]) Vital Signs (Past 12 Hours) Vital Signs Temp Pulse Pulse Pulse Resp BP Pulse Ox 04/29/22 08:00 74 04/29/22 08:00 04/29/22 07:57 36.7 C 20 L 73 20 166/76 H 99 04/29/22 03:44 36.6 C 71 20 151/72 H 99 04/29/22 00:45 74 04/28/22 23:00 36.5 C 65 20 165/84 H 98 O2 Del Method 04/29/22 08:00 04/29/22 08:00 Room Air 04/29/22 07:57 Room Air 04/29/22 03:44 Room Air 04/29/22 00:45 04/28/22 23:00 Room Air Laboratory Results 04/29/22 04/29/22 Range/Units 08:30 07:31 Sodium 137 (136-145) mmol/L Potassium 3.7 (3.5-5.1) mmol/L Chloride 101 (98-107) mmol/L Carbon Dioxide 29 (21-32) mmol/L Anion Gap 7 (3-11) BUN 25 H (6-23) mg/dl Creatinine 0.99 (0.6-1.2) mg/dl Est Cr Clr Drug Dosing 37.5 ml/min Est GFR ( Amer) 66.4 ml/min Est GFR (Non-Af Amer) 57.3 ml/min BUN/Creatinine Ratio 25.3 H (10-20) Glucose 147 H (70-99(Fasting)) mg/dl Calcium 8.9 (8.5-10.1) mg/dl Phosphorus 3.4 (2.5-4.9) mg/dl Magnesium 1.9 (1.7-2.4) mg/dl Troponin I High Sens 13.7 (0-14) pg/ml Medications Administered Current Inpatient Medications Albuterol (Albut/Ipratrop 3mg/0.5mg Neb 3 Ml Vial) 3 ml NEB Q4R PRN; Protocol PRN Reason: Shortness Of Breath Or Wheezing Stop: 05/28/22 10:59 Atorvastatin Calcium ([facility]orvastatin 10 Mg Tab) [facility] [place] Stop: 05/29/22 08:59 Last Admin: 04/29/22 07:33 Dose: 10 mg Azithromycin (Azithromycin 250 Mg Tab) [facility] [place] Stop: 05/06/22 08:59 Last Admin: 04/29/22 07:33 Dose: 250 mg Fluticasone/Vilanterol (Fluticasone/Vilanterol 200/25mcg 14 Puffs/Inhaler) 1 puffs INH DAILY [facility] Stop: 05/28/22 09:59 Last Admin: 04/29/22 07:34 Dose: 1 puffs Lisinopril (Lisinopril 20 Mg Tab) [facility] [place] Stop: 05/29/22 08:59 Last Admin: 04/29/22 07:33 Dose: 20 mg Prednisone (Prednisone 20 Mg Tab) 40 mg PO DAILY [facility] Stop: 05/29/22 08:59 Last Admin: 04/29/22 07:33 Dose: 40 mg Umeclidinium [place] (Umeclidinium [place] 62.5mcg/Blister 7 Puffs/Inhaler) 1 puffs INH DAILY [facility] Stop: 05/28/22 09:59 Last Admin: 04/29/22 07:34 Dose: 1 puffs
[2022-04-29 09:43] LABS: BUN Creatinine Ratio 25.3 (10-20); Calcium 8.9 mg/dl (8.5-10.1); Creatinine Clr Calc Pharmacy 37.5 ml/min; Est GFR (African American) 66.4 ml/min; Est GFR (Non-African American) 57.3 ml/min; Potassium 3.7 mmol/L (3.5-5.1)
[2022-04-29 09:50] LABS: Troponin I High Sensitivity 13.7 pg/ml (0-14)
[2022-04-29 09:53] LABS: Magnesium 1.9 mg/dl (1.7-2.4); Phosphorus 3.4 mg/dl (2.5-4.9)
[2022-04-29] MEDS ORDERED: POTASSIUM CHLORIDE CRTAB 20 MEQ TABCR PO ONE (12:52)
--- NOTE | 2022-04-29 13:54 | Discharge Summary ---
Date of Service April 29, 2022 Admission HPI Per Admitting Provider Melissa Navas is a 71 year old female who presented to the [facility] ED with increasing SOB that she has been experiencing x 1 week. She started to take her previously prescribed Prednisone 50 mg and Augmentin. She did not experience relief; so started to take Ceftin 2 days ago with a reduced dose of Prednisone of 40 mg PO daily. She has a diagnosis of COPD; however, does not follow with a glass scullion, nor does she have home supplemental O2/CPAP. She is a current and avid smoker of about 1-1.5 ppdwith a 37 pack year history with no intent to abstain from smoking. In the ED, the patient was started on Levaquin IV and was placed on Bipap for a continuous one hour Albuterol/Ipratropium nebulizer treatment, with IV Solumedrol initiated. Additional PMH includes Ulcerative Colitis (does not follow GI - last colonoscopy in 2010 revealed some mild inflammation), GERD, and osteoporosis. Pt denies CP, dizziness, recent falls/trauma, palpitations, anxiety, visual or hearing changes, bowel habit changes, urinary changes or skin changes. Patient will be admitted for acute on chronic COPD exacerbation. Please see A/P for further details. Admission Exam Per Admitting Provider Neuro: AAOx4, PERRLA, no aphagia, memory changes, CNII-XII grossly intact HEENT: head normocephalic, moist mucus membranes CV: S1/S2, (-) M/G/R, (-) edema, cap refill < 3 seconds Resp: On RA now; Expiratory wheezes in left lung jensen GI: Abdomen S/NT/ND, Ax4 bowel sounds, (-) CVA tenderness Musculoskeletal: 5/5 B/L UE strength, 5/5 B/L LE strength. No gait disturbance Skin: (-) rashes , (-) erythema. Psych: euthymic mood Principal Diagnosis COPD exacerbation Discharge Exam General- No acute distress, cachectic Head- atraumatic Eyes- PERRL, EOMI, ENT- oropharynx clear Neck- supple, no JVD Lungs- clear to auscultation Heart- regular rhythm; no murmur Abdomen- normal bowel sounds, soft, nontender Extremities- no calf tenderness, moves extremities Neuro- alert, oriented x 3; PERRL, EOMI; no facial palsy; no dysarthria, moves extremities Skin- warm & dry Discharge Data Allergies Allergy/AdvReac Type Severity Reaction Status Date / Time fentanyl Allergy Intermediate rash due Verified 02/22/17 18:12 to the patch nickel Allergy Unknown . Verified 02/22/17 18:12 Consultations 04/27/22 12:42 ED Decision to Admit Stat 04/27/22 15:48 Consult Pulmonology Routine Hospital Course (1) COPD (chronic obstructive pulmonary disease): (2) Hypertension: (3) History of ulcerative colitis: (4) Tobacco use: Plan 71 yo Female with PMH of tobaco abuse Present on admission with worsening SOB for about 1 week . COPD Exacerbation: At home she took Prednisone 50 mg and Augmentin for 7 days with no relief then started Ceftin 2 days ago with Prednisone of 40 mg PO daily. CXR showed no acute cardiopulmonary findings. WBC 13.76; procalcitonin negative on admission Received IV Solu-Medrol 60 mg and Levaquin IV on admission Currently on IV Solu-Medrol 40 mg IV twice daily, will transition to p.o. prednisone 40 mg daily Pulmonology on board recommended a course of 5 to 7 days of prednisone. Azithromycin added to cover for atypical organisms per pulmonology Started on Breo Ellipta and Incruse Ellipta while an inpatient. Then will transition to Trelegy 100 mcg daily on discharge. Continue Flutter valve and incentive spirometer Patient has been refusing nebulizer treatment and she told staff respiratory therapist to not come back to ask her again about the neb treatment Consider outpatient PFT 2-step test done, no need for suppl. O2 Clinically improved significantly Tobacco Use: Patient said she does not have any intention to quit smoking counseling on smoking cessation Consider outpatient low-dose CT to screen for lung cancer HTN: Takes Lisinopril; however, reports that she takes her dose based on her BP and appears non compliant. Pt reports she takes it if her B/P is 160. added Lisinopril 20mg daily Continue monitor BP Elevated Troponin Troponin mildly elevated 15.7 on admission No signs of chest pain or ACS. resting echo obtained -there is moderate concentric LVH. LV systolic function is normal. EF 55 to 60%. Grade 1 diastolic dysfunction. RV systolic function is normal. LA size is normal. RA size is normal. Trace aortic regurg. There is trace mitral regurg. There is aortic root sclerosis/calcification. Continue monitor Dyslipidemia: On Lipitor 10 mg PO QD. History of Ulcerative Colitis: Does not follow with GI. No signs of exacerbation. Disposition: Plan to discharge home Code Status: DNR/DNI Total Time Total Time Spent Total Time Spent (In Minutes): 40 Discharge Plan Discharge Items Patient Disposition: Home - Self-Care Reason For Visit: SOB Discharge Diagnosis: COPD exacerbation Activity: Per Instructions section Non-emergency contact: Primary Care Provider Call non-emergency contact if: you have any medication questions and your symptoms worsen Follow-up/Referrals: Michael Meza, [Primary Care Provider] - (Date & Time 05/04/2022 11:00 AM Provider Donaldo Mejia III, MD Department [facility] ) Diet: Heart Healthy Addtl Attending Provider Instructions: Follow-up with primary care doctor, within 1 to 2 weeks. Finish prednisone and azithromycin course. Use inhalers as prescribed. It is strongly recommended that you quit smoking, and follow-up with a lung doctor. Pending Studies at Discharge: No Stand-Alone Forms: [facility], Smoking Cessation Medications and DC Order Prescriptions: New azithromycin 250 mg Tablet 250 mg PO QAM 4 Days Qty: 4 0RF prednisone 20 mg Tablet 40 mg PO DAILY 5 Days Qty: 10 0RF fluticasone furoate-vilanterol [Breo Ellipta] 200-25 mcg/dose Blister With Device 1 ea inhalation DAILY Qty: 60 0RF Spiriva Respimat 1.25 mcg/actuation mist 2 inh inhalation DAILY Qty: 4 0RF Continued ALBUTEROL HFA (VENTOLIN HFA) 200 PUFFS/18,000 MCG AEROSOL,SOLN 2 - 4 puff Inhalation Q6H Qty: 1 ATORVASTATIN (LIPITOR) 10 MG tablet 10 mg PO DAILY Qty: 0 Lisinopril (Prinivil) 20 MG tablet 20 mg PO BID Qty: 0 Spironolactone (Aldactone) 50 MG tablet 50 mg PO BID Qty: 0 Pantoprazole (Pantoprazole Sodium) 40 MG tablet 40 mg PO BID Qty: 60 0RF Discharge Orders: Discharge Order (Routine); Ordered 04/29/22 Ordered By: Dakota Mcconnell Admission Data Admit Date/Time: 04/27/22 12:53 Attending Provider: Dakota Mcconnell Admit Provider: Lorena Hester Primary Care Provider: Michael Meza Other Providers: Lorena Hester ; Kin Fall Other Interventions: Discharge Summary Assessment (RN) Last Done: 04/29/22 14:03
== END 2022-04-29 15:20 | disposition home or self-care (01) | DRG 191 ==
LOC: ED 10:15 → SUATTDRO 12:53 → 2S 12:53

== ENCOUNTER 2022-09-12 10:18 | Inpatient (IN) ==
[2022-09-12] MEDS ORDERED: ALBUT/IPRATROP 3MG/0.5MG NEB 3 ML VIAL NEB ONE (10:49)
[2022-09-12] MEDS ORDERED: methylPREDNISolone 60 MG in SYRINGE 1 ML IV STA (10:49)
[2022-09-12] MEDS ORDERED: SODIUM CHLORIDE 0.9% 1000ML 500 ML IV ONE ×2 (10:50→15:19)
--- NOTE | 2022-09-12 11:07 | XRay Report ---
SINGLE VIEW CHEST CLINICAL HISTORY: Dyspnea. FINDINGS: An AP, portable, upright chest radiograph is compared to study dated 04/28/2022. Correlation is made with chest CT dated 10/06/2006. The examination is degraded by portable technique and patient rotation. The cardiomediastinal silhouette is top normal for projection and noting atherosclerotic c alcification of the thoracic aorta. Advanced emphysema and chronic interstitial thickening is similar to previous. Foci of probable scarring are seen throughout both lungs. No airspace consolidation or large pleural effusion is identified. No pneumothorax is seen. The skeletal structures are osteopenic . The bony thorax is grossly intact. IMPRESSION: Advanced emphysema with no acute cardiopulmonary abnormality identified. ACT 112: Negative or not required by law. Electronically signed by: Jamie Zapata M.D. 09/12/2022 11:06 AM
[2022-09-12 11:11] LABS: Basophils # (auto) 0.06 K/uL (0-0.2); Basophils % (auto) 0.5 %; Eosinophils # (auto) 0.02 K/uL (0-0.50); Eosinophils % (auto) 0.2 %; Hematocrit (blood only) 46.1 % (34.1-44.9); Hemoglobin 15.1 g/dl (12.0-16.0); Immature Granulocytes # (auto) 0.02 K/uL (0.00-0.02); Immature Granulocytes % (auto) 0.2 %; Lymphocytes # (auto) 0.61 K/uL (1.2-3.4); Lymphocytes % (auto) 5.4 %; Mean Corpuscular Hemoglobin 30.9 pg (25.0-34.0); Mean Corpuscular Hgb Conc 32.8 g/dL (32.0-36.0); Mean Corpuscular Volume 94.3 fL (80.0-100.0); Mean Platelet Volume 10.7 fL (9.4-12.3); Monocytes # (auto) 1.33 K/uL (0.24-0.82); Monocytes % (auto) 11.7 %; Neutrophils # (auto) 9.34 K/uL (1.4-6.5); Platelet Count 185 K/uL (130-400); RDW Standard Deviation 48.7 fL (36.4-46.3); Red Blood Count 4.89 M/uL (3.93-5.22); White Blood Count 11.38 K/ul (4.8-10.8)
[2022-09-12 11:41] LABS: Alanine Aminotransferase 15 U/L (7-52); Albumin Level 3.7 gm/dl (3.4-5.0); Alkaline Phosphatase 67 U/L (34-104); Anion Gap 12 (3-11); Aspartate Aminotransferase 16 U/L (13-39); BUN Creatinine Ratio 20.8 (10-20); Bilirubin,Total 0.5 mg/dl (0.2-1.0); Blood Urea Nitrogen 15 mg/dl (6-23); Carbon Dioxide 24 mmol/L (21-32); Chloride 106 mmol/L (98-107); Est GFR (African American) 97.7 ml/min; Est GFR (Non-African American) 84.3 ml/min; Globulin 3.8 gm/dl (2.5-4.0); Glucose 84 mg/dl (70-99(Fasting)); Magnesium 1.6 mg/dl (1.7-2.4); Potassium 4.1 mmol/L (3.5-5.1); Sodium 142 mmol/L (136-145); Total Protein 7.5 gm/dl (6.0-8.3)
[2022-09-12 11:43] LABS: Troponin I High Sensitivity 13.9 pg/ml (0-14)
[2022-09-12 11:55] LABS: Influenza A virus by PCR Negative (Neg); Influenza B virus by PCR Negative (Neg); RSV by PCR Negative (Neg); SARS CoV2 RNA(COVID-19) Ceph NEGATIVE (Negative)
[2022-09-12] MEDS: MAGNESIUM SULFATE / D5W 1 GM/100 ML BAG IV SCH ×2 (13:29→14:30)
[2022-09-12] MEDS ORDERED: SODIUM CHLORIDE 0.9% 1000ML 1,000 ML IV SCH (13:35)
[2022-09-12] MEDS ORDERED: CEFEPIME 2,000 MG/20 ML VIAL IV STA (13:47)
--- NOTE | 2022-09-12 14:18 | History & Physical Report ---
Date of Service September 12, 2022 Assessment & Plan (1) COPD exacerbation: Plan: Acute Respiratory failure with hypoxia: Acute on Chronic COPD Exacerbation H/O noncompliance with Advair Diskus use (Due to Cost) Ongoing tobacco use disorder CXR: Advanced emphysema with no acute cardiopulmonary abnormality identified. RSV, influenza, COVID screen negative Obtain VBG, Procalcitonin, CTA--pending Start on broad spectrum IV antibiotics Started on IV solumedrol, bronchodilators Oxygen support per protocol--to keep sats 88 to 92% Pulmonology Consulted Pulmonary Hygiene Patient prefers to be DNI/DNR and refuses BiPAP use Further management based on pending results SIRS Lactic Acidosis Presented with Hypotension Dehydration No clear source of infection Blood, urine cultures pending Obtain bio fire Aggressive IV fluids Empirically on cefepime, doxycycline Trend lactate levels Hypomagnesemia Replace electrolytes as needed Monitor Tobacco use disorder Smokes about 1 pack/day 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 Refuses nicotine patch Severe protein calorie malnutrition Dietitian consulted Ulcerative colitis Currently not on any medications Hypertension Hold lisinopril secondary to hypotension Monitor BP DVT Px: Lovenox SQ Code Status DNI/DNR: As per my discussion with patient and patient's son at bedside History of Present Illness Chief Complaint: Shortness of Breath Primary Care Provider: Michael Meza DO Patient is a 71-year-old female with history of COPD, ulcerative colitis, ongoing tobacco use disorder, osteoporosis, hypertension and other medical problems presents with history of worsening shortness of breath, generalized weakness and generalized body ache since 2 days duration. Patient states that she usually ambulates without any assistance but currently is unable to stand up or ambulate. She feels that she is dehydrated and has been using Pedialyte at home. She also states having generalized "shakiness". Reports having cough with whitish expectoration and has runny nose. Uses Flonase which temporarily helps with symptoms. Also reports having dizziness and generalized weakness. Her appetite has been very poor. She has not been using her Advair Diskus secondary to the cost. She admits to smoking 1 pack/day. She has been using her home albuterol inhaler more frequently since last 2 days. She is not on any supplemental oxygen at home. Denies any history of chest pain, palpitations, pedal edema, hemoptysis, fever, chills, fall, chest trauma, change in vision, nausea, vomiting, abdominal pain, blood in stools, diarrhea, dysuria, hematuria, recent travel, sick contact, recent change in medications. Allergies Allergy/AdvReac Type Severity Reaction Status Date / Time fentanyl Allergy Intermediate rash due Verified 02/22/17 18:12 to the patch nickel Allergy Unknown . Verified 02/22/17 18:12 Home Medications Medication Instructions Recorded Confirmed Type acetaminophen 325 mg capsule 325 mg PO Q6H PRN Pain 09/12/22 09/12/22 History (Tylenol) albuterol 90 mcg/actuation aerosol 90 mcg inhalation Q4H PRN 09/12/22 09/12/22 History inhaler Shortness Of Breath Or Wheezing cholecalciferol (vitamin D3) 50 50 mcg PO DAILY 09/12/22 09/12/22 History mcg (2,000 unit) capsule (Vitamin D3) cyanocobalamin (vitamin B-12) 2,500 mcg PO DAILY 09/12/22 09/12/22 History 2,500 mcg tablet fluticasone propionate 50 2 spray intranasal DAILY 09/12/22 09/12/22 History mcg/actuation nasal spray,suspension lisinopril 5 mg PO DAILY 09/12/22 09/12/22 History omega 2-gme-njm-fish oil 60 mg-90 1 cap PO DAILY 09/12/22 09/12/22 History mg-500 mg capsule (Fish Oil) sennosides 8.6 mg-docusate sodium 2 tab PO DAILY PRN Constipation 09/12/22 09/12/22 History 50 mg tablet (Senokot-S) Past Med/Surg History Medical History Abnormal colonoscopy Acute dyspnea Carotid arterial disease COPD (chronic obstructive pulmonary disease) COPD exacerbation History of ulcerative colitis Hypertension Lower extremity weakness Osteoporosis Tobacco abuse counseling Tobacco use Surgical History (Updated 09/12/22 @ 15:32 by Ryley Polanco MD) History of appendectomy Family History Sister Cancer Heart disease Social History Smoking Status: Current every day smoker Tobacco Type: Cigarettes Cigarettes Per Day: 20; Second Hand Exposure: No; Hx Alcohol Use: No Hx Substance Use: No Preferred Language: Welsh Communication Ability: Effective 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: No Beliefs That Will Affect Care: None Current Living Situation: Spouse Feels Safe at Home: Yes Assistive Devices: None Review of Systems Review of Systems: All systems reviewed & are unremarkable except as noted in Subjective Physical Exam Physical Exam: Physical Exam: Vitals signs as noted above General Appearance: Thin, frail, chronically appearing, mild respiratory distress Head: normocephalic, Atraumatic Eyes: normal inspection, EOMI Neck: supple, Trachea midline Respiratory/Chest: Decreased breath sounds, scant wheezes, + accessory muscle use Cardiovascular: S1, S2, No murmur, +Tachycardic Abdomen/GI:Soft, Non tender, Bowel sounds present Extremities/Musculoskeletal:normal inspection, no edema Neurologic/Psych:AAOX3, grossly no focal neurological deficits Skin: normal color, warm Results & Data Results & Data ([facility]) Vital Signs (Past 12 Hours) Vital Signs Temp Pulse Pulse Resp BP BP Pulse Ox 09/12/22 14:15 128 H 29 H 115/57 L 97 09/12/22 14:00 113 H 32 H 81/62 L 97 09/12/22 12:19 130 H 30 H 98 09/12/22 10:55 97 09/12/22 10:54 97 09/12/22 10:19 124 H 28 H 122/73 89 L 09/12/22 10:26 36.9 C 119 H 20 90/55 L 90 O2 Del Method O2 Flow Rate 09/12/22 14:15 Nasal Cannula 2 09/12/22 14:00 Nasal Cannula 2 09/12/22 12:19 Nasal Cannula 2 09/12/22 10:55 Nasal Cannula 2 09/12/22 10:54 Nasal Cannula 2 09/12/22 10:19 Room Air 09/12/22 10:26 Room Air Laboratory Results Short CBC 09/12/22 Range/Units 10:46 WBC 11.38 H (4.8-10.8) K/ul Hgb 15.1 (12.0-16.0) g/dl Hct 46.1 H (34.1-44.9) % Plt Count 185 (130-400) K/uL BMP 09/12/22 10:46 Sodium 142 Potassium 4.1 Chloride 106 Carbon Dioxide 24 BUN 15 Creatinine 0.72 Glucose 84 Calcium 10.0 Liver Function 09/12/22 Range/Units 10:46 Total Bilirubin 0.5 (0.2-1.0) mg/dl AST 16 (13-39) U/L ALT 15 (7-52) U/L Alkaline Phosphatase 67 (34-104) U/L Albumin 3.7 (3.4-5.0) gm/dl Urine 09/12/22 Range/Units 13:57 Urine Color Dark Yellow Urine Appearance Clear (Clear) Urine pH 5.5 (4.5-7.5) Ur Specific [place] 1.029 (1.000-1.030) Urine Protein 3+ H (Negative) Urine Glucose (UA) Negative (Negative) Diagnostic Findings CXR;:Advanced emphysema with no acute cardiopulmonary abnormality identified. ECG Additional Comments: EKG: Sinus tachycardia with PVCs, left ventricular hypertrophy, QTC 421
[2022-09-12 14:50] LABS: Appearance Urine Clear (Clear); Bacteria Urine Automated Negative (Negative); Bilirubin Urine Negative (Negative); Blood Urine 2+ (Negative); Color Urine Dark Yellow; Epithelial Cell Urine Auto >30 /lpf (0-5); Glucose Urine UA Negative (Negative); Ketones Urine 3+ (Negative); Leukocyte Esterase Urine Negative (Negative); Nitrite Urine Negative (Negative); Protein Urine 3+ (Negative); RBC Urine Automated 0-4 /hpf (0-4); Specific Gravity Urine 1.029 (1.000-1.030); Urobilinogen Urine Negative (Negative); pH Urine 5.5 (4.5-7.5)
[2022-09-12 15:26] LABS: Base Excess VBG -7.7 mEq/L; HCO3 VBG 20 mmol/L; Oxygen Saturation VBG 72.8 %; PCO2 VBG 46 mmHg (38-50); PO2 VBG 45 mmHg; pH VBG 7.24 (7.36-7.41)
[2022-09-12] MEDS ORDERED: OPTIRAY 320 500ml IV ONE (15:48)
--- NOTE | 2022-09-12 15:55 | Emergency Department Note ---
Impression & Plan COPD exacerbation, Elevated lactic acid level, Acute hypotension, Tobacco dependence ED Provider Note CHIEF COMPLAINT: Shortness of breath HISTORY OF PRESENT ILLNESS: This 71-year-old female patient presents to the emergency department with complaints of increased shortness of breath and cough over the last several days to a week. The patient states she does have a history of COPD and has been smoking 1 pack of cigarettes per day for 50+years. The patient does not wear home oxygen but states she feels "so tired" and does not feel that she can walk anywhere. Patient does have increased shortness of breath with any exertion. She denies any complicated medical problems outside of hypertension and her COPD. She denies any recent fevers or sputum production. REVIEW OF SYSTEMS: A review of systems was performed with positives and pertinent negatives listed in the history of present illness. 10 systems were reviewed and are otherwise negative. ALLERGIES: see below MEDICATIONS: see below PMH: see below SOCIAL HISTORY: see below DDx:Reactive airway disease, pneumonia, pneumothorax, COPD, CHF, infections, cardiac ischemia, pulmonary embolism, musculoskeletal, gastrointestinal, as well as other pathologies. PHYSICAL EXAM: Vital signs reviewed. General: Chronically ill-appearing 71 yo female, in no significant distress. HEENT: No scleral icterus, PERRLA, neck supple. Atraumatic. Cardiovascular: Regular rate and rhythm, no extra sounds. Pulmonary: Dry cough, faint scattered wheezes, increased work of breathing. On nasal cannula oxygen Abdomen: Soft, nontender, nondistended, positive bowel sounds. Musculoskeletal: Atraumatic, no peripheral edema. Neurologic: Patient awake alert and oriented x 3 Skin: Warm, dry, no rash EMERGENCY DEPARTMENT COURSE/MDM: This patient was evaluated and appeared to be in no distress. IV access was obtained and laboratory work was drawn. Chest x- ray was performed and reveals findings consistent with COPD, no focal inf iltrate. Patient was given a DuoNeb treatment and IV Solu-Medrol. Blood cultures and lactate were drawn. Patient's lactate is elevated at 4. IV fluids were initiated and the patient was covered with IV Maxipime. Patient was maintained on nasal cannula oxygen but admission was felt to be warranted due to the elevated lactate and oxygen requirement. Patient's blood pressure was initially stable, then noted to be low but did improve with IV hydration. She was discussed with the hospitalist service for admission and further management. Patient was made aware of the plan and agreed. MONITORING: An order for cardiac monitoring was placed and the patient is noted to be in a sinus tachycardia at 119 beats per minute. RADIOLOGY: See below EKG: Poor quality baseline for interpretation, sinus tachycardia at 117 bpm, with PACs, LVH with repolarization abnormality. Normal ST segments. QTC is 421. DISPOSITION: Admission I have personally spent greater than 40 minutes of critical care time in the direct management of this patient. This includes bedside care, interpretation of diagnostic studies, and testing, discussion with consultants, patient, and family members, and other required patient management activities. This 40 minutes is in excess of all separately billable procedures. Past Med/Surg History Medical History Abnormal colonoscopy Acute dyspnea Carotid arterial disease COPD (chronic obstructive pulmonary disease) COPD exacerbation History of ulcerative colitis Hypertension Lower extremity weakness Osteoporosis Tobacco abuse counseling Tobacco use Surgical History History of appendectomy Family History Sister Cancer Heart disease Social History Smoking Status: Current every day smoker Tobacco Type: Cigarettes Cigarettes Per Day: 1-2 PPD; Second Hand Exposure: No; Hx Alcohol Use: No Hx Substance Use: No Preferred Language: Yemeni Communication Ability: Effective Meat Scrubber Required: No Beliefs That Will Affect Care: None Current Living Situation: Spouse Feels Safe at Home: Yes Assistive Devices: None Allergies Allergies Allergy/AdvReac Type Severity Reaction Status Date / Time fentanyl Allergy Intermediate rash due Verified 02/22/17 18:12 to the patch nickel Allergy Unknown . Verified 02/22/17 18:12 Home Meds Home Medications Medication Instructions Recorded Confirmed acetaminophen 325 mg capsule 325 mg PO Q6H PRN Pain 09/12/22 09/12/22 (Tylenol) albuterol 90 mcg/actuation aerosol 90 mcg inhalation Q4H PRN 09/12/22 09/12/22 inhaler Shortness Of Breath Or Wheezing cholecalciferol (vitamin D3) 50 50 mcg PO DAILY 09/12/22 09/12/22 mcg (2,000 unit) capsule (Vitamin D3) cyanocobalamin (vitamin B-12) 2,500 mcg PO DAILY 09/12/22 09/12/22 2,500 mcg tablet fluticasone propionate 50 2 spray intranasal DAILY 09/12/22 09/12/22 mcg/actuation nasal spray,suspension omega 6-xmr-bgs-fish oil 60 mg-90 1 cap PO DAILY 09/12/22 09/12/22 mg-500 mg capsule (Fish Oil) sennosides 8.6 mg-docusate sodium 2 tab PO DAILY PRN Constipation 09/12/22 09/12/22 50 mg tablet (Senokot-S) Previous Rx's Medication Instructions Recorded doxycycline hyclate 100 mg capsule 100 mg PO BID #6 caps 09/16/22 fluticasone propionate 50 1 spray intranasal DAILY PRN 09/16/22 mcg/actuation nasal allergy symptoms #16 grams spray,suspension (Flonase Allergy Relief) levocetirizine 5 mg tablet 5 mg PO DAILY PRN allergy symptoms 09/16/22 #10 tabs prednisone 20 mg tablet 20 mg PO DAILY #2 tabs 09/16/22 tamsulosin 0.4 mg capsule 0.4 mg PO QAM #30 caps 09/16/22 umeclidinium 62.5 mcg-vilanterol 1 inh inhalation DAILY #60 ea 09/16/22 25 mcg/actuation powdr for inhalation (Anoro Ellipta) Results & Data (ED) Vital Signs Vital Signs - 24 hr 09/12/22 10:26 09/12/22 10:19 09/12/22 10:54 Temperature 36.9 C Temperature Source Oral Pulse Rate 119 H Pulse Rate [Left Apical] 124 H Pulse Rhythm Regular Pulse Rhythm [Left Apical] Pulse Strength Normal Pulse Strength [Left Apical] Respiratory Rate 20 28 H Respiratory Effort / Characteristics Non-Labored Spontaneous Labored Retracting Short of Breath Respiratory Depth Normal Respiratory Pattern Regular Blood Pressure 90/55 L Blood Pressure [Left Arm] 122/73 Blood Pressure Mean 66 Blood Pressure Mean [Left Arm] 89 Blood Pressure Position Sitting Pulse Oximetry 90 89 L 97 Oxygen Delivery Method Room Air Room Air Nasal Cannula Oxygen Flow Rate 2 Sepsis Recent Fever Within 48 Hours No Sepsis New/Unexplained Change in Mental Status No Sepsis Action Taken by Nursing Physician Notified 09/12/22 10:55 09/12/22 12:19 09/12/22 14:00 Temperature Temperature Source Pulse Rate Pulse Rate [Left Apical] 130 H 113 H Pulse Rhythm Pulse Rhythm [Left Apical] Regular Pulse Strength Pulse Strength [Left Apical] Normal Respiratory Rate 30 H 32 H Respiratory Effort / Characteristics Non-Labored Non-Labored Respiratory Depth Normal Normal Respiratory Pattern Regular Regular Blood Pressure Blood Pressure [Left Arm] 81/62 L Blood Pressure Mean Blood Pressure Mean [Left Arm] 68 Blood Pressure Position Pulse Oximetry 97 98 97 Oxygen Delivery Method Nasal Cannula Nasal Cannula Nasal Cannula Oxygen Flow Rate 2 2 2 Sepsis Recent Fever Within 48 Hours Sepsis New/Unexplained Change in Mental Status Sepsis Action Taken by Nursing 09/12/22 14:15 09/12/22 14:42 09/12/22 15:00 Temperature Temperature Source Pulse Rate Pulse Rate [Left Apical] 128 H 124 H 119 H Pulse Rhythm Pulse Rhythm [Left Apical] Regular Pulse Strength Pulse Strength [Left Apical] Normal Respiratory Rate 29 H 27 H 27 H Respiratory Effort / Characteristics Respiratory Depth Respiratory Pattern Blood Pressure Blood Pressure [Left Arm] 115/57 L 81/60 L 84/61 L Blood Pressure Mean Blood Pressure Mean [Left Arm] 76 67 68 Blood Pressure Position Pulse Oximetry 97 96 96 Oxygen Delivery Method Nasal Cannula Nasal Cannula Nasal Cannula Oxygen Flow Rate 2 2 2 Sepsis Recent Fever Within 48 Hours Sepsis New/Unexplained Change in Mental Status Sepsis Action Taken by Long-Term Medications Current Medication List: was personally reviewed by me Laboratory Data Attestation: I reviewed the patient's lab results. Result diagrams: 09/16/22 06:37 09/16/22 06:37 Lab Results 09/12/22 09/12/22 09/12/22 Range/Units 10:24 10:46 10:46 WBC 11.38 H (4.8-10.8) K/ul RBC 4.89 (3.93-5.22) M/uL Hgb 15.1 (12.0-16.0) g/dl Hct 46.1 H (34.1-44.9) % MCV 94.3 (80.0-100.0) fL MCH 30.9 (25.0-34.0) pg MCHC 32.8 (32.0-36.0) g/dL RDW Std Deviation 48.7 H (36.4-46.3) fL RDW Coeff of Haja 14.0 (11.5-14.5) % Plt Count 185 (130-400) K/uL MPV 10.7 (9.4-12.3) fL Immature Gran % (Auto) 0.2 % Neut % (Auto) 82.0 % Lymph % (Auto) 5.4 % Becker % (Auto) 11.7 % Eos % (Auto) 0.2 % Baso % (Auto) 0.5 % Neut # (Auto) 9.34 H (1.4-6.5) K/uL Lymph # (Auto) 0.61 L (1.2-3.4) K/uL Becker # (Auto) 1.33 H (0.24-0.82) K/uL Eos # (Auto) 0.02 (0-0.50) K/uL Baso # (Auto) 0.06 (0-0.2) K/uL Immature Gran # (Auto) 0.02 (0.00-0.02) K/uL Sodium 142 (136-145) mmol/L Potassium 4.1 (3.5-5.1) mmol/L Chloride 106 (98-107) mmol/L Carbon Dioxide 24 (21-32) mmol/L Anion Gap 12 H (3-11) BUN 15 (6-23) mg/dl Creatinine 0.72 (0.6-1.2) mg/dl Est Cr Clr Drug Dosing Not Reportable Est GFR ( Amer) 97.7 ml/min Est GFR (Non-Af Amer) 84.3 ml/min BUN/Creatinine Ratio 20.8 H (10-20) Glucose 84 (70-99(Fasting)) mg/dl Lactate Calcium 10.0 (8.5-10.1) mg/dl Magnesium 1.6 L (1.7-2.4) mg/dl Total Bilirubin 0.5 (0.2-1.0) mg/dl AST 16 (13-39) U/L ALT 15 (7-52) U/L Alkaline Phosphatase 67 (34-104) U/L Troponin I High Sens 13.9 (0-14) pg/ml Total Protein 7.5 (6.0-8.3) gm/dl Albumin 3.7 (3.4-5.0) gm/dl Globulin 3.8 (2.5-4.0) gm/dl Albumin/Globulin Ratio 1.0 (0.9-2) Procalcitonin (0-0.5) ng/ml Urine Color Urine Appearance (Clear) Urine pH (4.5-7.5) Ur Specific [place] (1.000-1.030) Urine Protein (Negative) Urine Glucose (UA) (Negative) Urine Ketones (Negative) Urine Blood (Negative) Urine Nitrite (Negative) Urine Bilirubin (Negative) Urine Urobilinogen (Negative) Ur Leukocyte Esterase (Negative) Urine WBC (Auto) (0-5) /hpf Urine RBC (Auto) (0-4) /hpf U Hyaline Cast (Auto) (0-5) /lpf U Epithel Cells (Auto) (0-5) /lpf Urine Bacteria (Auto) (Negative) Ur Renal Epithelial Cell Urine Yeast (None Prsent) SARS-CoV-2 (PCR) NEGATIVE (Negative) Influenza Type A (PCR) Negative (Neg) Influenza Type B (PCR) Negative (Neg) RSV (RT-PCR) Negative (Neg) 09/12/22 09/12/22 09/12/22 Range/Units 10:46 11:05 12:47 WBC (4.8-10.8) K/ul RBC (3.93-5.22) M/uL Hgb (12.0-16.0) g/dl Hct (34.1-44.9) % MCV (80.0-100.0) fL MCH (25.0-34.0) pg MCHC (32.0-36.0) g/dL RDW Std Deviation (36.4-46.3) fL RDW Coeff of Haja (11.5-14.5) % Plt Count (130-400) K/uL MPV (9.4-12.3) fL Immature Gran % (Auto) % Neut % (Auto) % Lymph % (Auto) % Becker % (Auto) % Eos % (Auto) % Baso % (Auto) % Neut # (Auto) (1.4-6.5) K/uL Lymph # (Auto) (1.2-3.4) K/uL Becker # (Auto) (0.24-0.82) K/uL Eos # (Auto) (0-0.50) K/uL Baso # (Auto) (0-0.2) K/uL Immature Gran # (Auto) (0.00-0.02) K/uL Sodium (136-145) mmol/L Potassium (3.5-5.1) mmol/L Chloride (98-107) mmol/L Carbon Dioxide (21-32) mmol/L Anion Gap (3-11) BUN (6-23) mg/dl Creatinine (0.6-1.2) mg/dl Est Cr Clr Drug Dosing Est GFR ( Amer) ml/min Est GFR (Non-Af Amer) ml/min BUN/Creatinine Ratio (10-20) Glucose (70-99(Fasting)) mg/dl Lactate TNP 4.0 H* Calcium (8.5-10.1) mg/dl Magnesium (1.7-2.4) mg/dl Total Bilirubin (0.2-1.0) mg/dl AST (13-39) U/L ALT (7-52) U/L Alkaline Phosphatase (34-104) U/L Troponin I High Sens (0-14) pg/ml Total Protein (6.0-8.3) gm/dl Albumin (3.4-5.0) gm/dl Globulin (2.5-4.0) gm/dl Albumin/Globulin Ratio (0.9-2) Procalcitonin 0.52 H (0-0.5) ng/ml Urine Color Urine Appearance (Clear) Urine pH (4.5-7.5) Ur Specific [place] (1.000-1.030) Urine Protein (Negative) Urine Glucose (UA) (Negative) Urine Ketones (Negative) Urine Blood (Negative) Urine Nitrite (Negative) Urine Bilirubin (Negative) Urine Urobilinogen (Negative) Ur Leukocyte Esterase (Negative) Urine WBC (Auto) (0-5) /hpf Urine RBC (Auto) (0-4) /hpf U Hyaline Cast (Auto) (0-5) /lpf U Epithel Cells (Auto) (0-5) /lpf Urine Bacteria (Auto) (Negative) Ur Renal Epithelial Cell Urine Yeast (None Prsent) SARS-CoV-2 (PCR) (Negative) Influenza Type A (PCR) (Neg) Influenza Type B (PCR) (Neg) RSV (RT-PCR) (Neg) 09/12/22 Range/Units 13:57 WBC (4.8-10.8) K/ul RBC (3.93-5.22) M/uL Hgb (12.0-16.0) g/dl Hct (34.1-44.9) % MCV (80.0-100.0) fL MCH (25.0-34.0) pg MCHC (32.0-36.0) g/dL RDW Std Deviation (36.4-46.3) fL RDW Coeff of Haja (11.5-14.5) % Plt Count (130-400) K/uL MPV (9.4-12.3) fL Immature Gran % (Auto) % Neut % (Auto) % Lymph % (Auto) % Becker % (Auto) % Eos % (Auto) % Baso % (Auto) % Neut # (Auto) (1.4-6.5) K/uL Lymph # (Auto) (1.2-3.4) K/uL Becker # (Auto) (0.24-0.82) K/uL Eos # (Auto) (0-0.50) K/uL Baso # (Auto) (0-0.2) K/uL Immature Gran # (Auto) (0.00-0.02) K/uL Sodium (136-145) mmol/L Potassium (3.5-5.1) mmol/L Chloride (98-107) mmol/L Carbon Dioxide (21-32) mmol/L Anion Gap (3-11) BUN (6-23) mg/dl Creatinine (0.6-1.2) mg/dl Est Cr Clr Drug Dosing Est GFR ( Amer) ml/min Est GFR (Non-Af Amer) ml/min BUN/Creatinine Ratio (10-20) Glucose (70-99(Fasting)) mg/dl Lactate Calcium (8.5-10.1) mg/dl Magnesium (1.7-2.4) mg/dl Total Bilirubin (0.2-1.0) mg/dl AST (13-39) U/L ALT (7-52) U/L Alkaline Phosphatase (34-104) U/L Troponin I High Sens (0-14) pg/ml Total Protein (6.0-8.3) gm/dl Albumin (3.4-5.0) gm/dl Globulin (2.5-4.0) gm/dl Albumin/Globulin Ratio (0.9-2) Procalcitonin (0-0.5) ng/ml Urine Color Dark Yellow Urine Appearance Clear (Clear) Urine pH 5.5 (4.5-7.5) Ur Specific [place] 1.029 (1.000-1.030) Urine Protein 3+ H (Negative) Urine Glucose (UA) Negative (Negative) Urine Ketones 3+ H (Negative) Urine Blood 2+ H (Negative) Urine Nitrite Negative (Negative) Urine Bilirubin Negative (Negative) Urine Urobilinogen Negative (Negative) Ur Leukocyte Esterase Negative (Negative) Urine WBC (Auto) 1-5 (0-5) /hpf Urine RBC (Auto) 0-4 (0-4) /hpf U Hyaline Cast (Auto) 10-30 H (0-5) /lpf U Epithel Cells (Auto) >30 H (0-5) /lpf Urine Bacteria (Auto) Negative (Negative) Ur Renal Epithelial Cell Not Reportable Urine Yeast Present A (None Prsent) SARS-CoV-2 (PCR) (Negative) Influenza Type A (PCR) (Neg) Influenza Type B (PCR) (Neg) RSV (RT-PCR) (Neg) Administered Medications Discontinued Medications Albuterol (Albut/Ipratrop 3mg/0.5mg Neb 3 Ml Vial) 12 ml NEB ONE ONE; Protocol Stop: 09/12/22 10:50 Last Admin: 09/12/22 11:05 Dose: 12 ml Documented By: GEM Doxycycline Hyclate (Doxycycline Hyclate 100 Mg Cap) 100 mg PO BID [facility] Stop: 09/19/22 20:59 Last Admin: 09/16/22 08:25 Dose: 100 mg Documented By: Admin: 09/15/22 20:12 Dose: 100 mg Documented By: Admin: 09/15/22 08:03 Dose: 100 mg Documented By: Admin: 09/14/22 21:44 Dose: 100 mg Documented By: Admin: 09/14/22 09:04 Dose: 100 mg Documented By: Admin: 09/13/22 19:50 Dose: 100 mg Documented By: Admin: 09/13/22 09:39 Dose: 100 mg Documented By: Admin: 09/12/22 20:17 Dose: 100 mg Documented By: KIM Enoxaparin Sodium (Enoxaparin Inj 30 Mg/0.3 Ml Syr) 30 mg SQ QAM TRUPTI Stop: 10/13/22 08:59 Last Admin: 09/16/22 08:25 Dose: 30 mg Documented By: Admin: 09/15/22 08:02 Dose: 30 mg Documented By: Admin: 09/14/22 09:05 Dose: 30 mg Documented By: Admin: 09/13/22 09:40 Dose: 30 mg Documented By: MEGAN Fluticasone Propionate (Fluticasone Propionate Na Spr 16 Gm Btl) 2 sprays NA DAILY TRUPTI Stop: 10/13/22 08:59 Last Admin: 09/16/22 08:26 Dose: 2 sprays Documented By: Admin: 09/15/22 08:03 Dose: 2 sprays Documented By: Admin: 09/14/22 09:05 Dose: 2 sprays Documented By: Admin: 09/13/22 09:40 Dose: 2 sprays Documented By: MEGAN Fluticasone/Vilanterol (Fluticasone/Vilanterol 100/25mcg 14 Puffs/Inhaler) 1 puffs INH DAILY TRUPTI Stop: 10/13/22 08:59 Last Admin: 09/13/22 09:39 Dose: 1 puffs Documented By: MEGAN Methylprednisolone 60 mg/ (Syringe) 1.96 mls @ 1.5 mls/min IV NOW STA Stop: 09/12/22 10:50 Last Admin: 09/12/22 11:13 Dose: 1.5 mls/min Documented By: GEM Sodium Chloride (Nss 1000ml) 500 mls @ 999 mls/hr IV .Q31M ONE Stop: 09/12/22 11:20 Last Infusion: 09/12/22 11:50 Dose: 0 mls/hr Documented By: OAAustyn Admin: 09/12/22 11:05 Dose: 999 mls/hr Documented By: GEM Magnesium Sulfate/Dextrose (Magnesium Sulfate / D5w) 1 gm in 100 mls @ 100 mls/hr IV Q1H TRUPTI Stop: 09/12/22 15:11 Last Infusion: 09/12/22 15:33 Dose: 0 mls/hr Documented By: Admin: 09/12/22 14:30 Dose: 100 mls/hr Documented By: Infusion: 09/12/22 14:29 Dose: 100 mls/hr Documented By: Admin: 09/12/22 13:29 Dose: 100 mls/hr Documented By: KYLAH Sodium Chloride (Nss 1000ml) 1,000 mls @ 999 mls/hr IV .Q1H1M TRUPTI Stop: 09/12/22 14:35 Last Infusion: 09/12/22 14:42 Dose: 0 mls/hr Documented By: Admin: 09/12/22 13:41 Dose: 999 mls/hr Documented By: GEM Cefepime HCl (Maxipime) 2,000 mg in 20 mls @ 5 mls/min IV NOW STA; Protocol Stop: 09/12/22 13:50 Last Admin: 09/12/22 14:00 Dose: 5 mls/min Documented By: GEM Sodium Chloride (Nss 1000ml) 500 mls @ 999 mls/hr IV .Q31M ONE Stop: 09/12/22 15:49 Last Infusion: 09/12/22 17:19 Dose: 0 mls/hr Documented By: Admin: 09/12/22 15:33 Dose: 999 mls/hr Documented By: OAAustyn Sodium Chloride (Nss 1000ml) 1,000 mls @ 250 mls/hr IV .Q4H TRUPTI Stop: 10/12/22 16:27 Last Infusion: 09/13/22 05:02 Dose: 0 mls/hr Documented By: Admin: 09/13/22 03:14 Dose: 250 mls/hr Documented By: MNAustyn Infusion: 09/13/22 02:46 Dose: 250 mls/hr Documented By: MNAustyn Admin: 09/12/22 22:46 Dose: 250 mls/hr Documented By: MNAustyn Infusion: 09/12/22 22:35 Dose: 250 mls/hr Documented By: MNAustyn Infusion: 09/12/22 20:29 Dose: 250 mls/hr Documented By: Admin: 09/12/22 17:18 Dose: 150 mls/hr Documented By: EMILY Methylprednisolone 40 mg/ (Syringe) 0.64 mls @ 1.5 mls/min IV Q8H TRUPTI Stop: 10/12/22 16:44 Last Admin: 09/13/22 09:39 Dose: 1.5 mls/min Documented By: Admin: 09/13/22 01:15 Dose: 1.5 mls/min Documented By: Admin: 09/12/22 17:46 Dose: 1.5 mls/min Documented By: EMILY Cefepime HCl 2,000 mg/ Syringe 20 mls @ 5 mls/min IV Q8H [facility] Stop: 09/19/22 21:59 Last Admin: 09/13/22 05:01 Dose: 5 mls/min Documented By: Admin: 09/12/22 21:01 Dose: 5 mls/min Documented By: KIM Sodium Chloride (Nss 1000ml) 1,000 mls @ 100 mls/hr IV .Q10H ONE Stop: 09/13/22 14:41 Last Infusion: 09/13/22 11:03 Dose: 0 mls/hr Documented By: Infusion: 09/13/22 05:03 Dose: 100 mls/hr Documented By: Admin: 09/13/22 05:01 Dose: 100 mls/hr Documented By: KIM Ceftriaxone Sodium 1,000 mg/ (Dextrose) 50 mls @ 100 mls/hr IV Q24H [facility]; Protocol Stop: 09/20/22 11:59 Last Infusion: 09/16/22 13:13 Dose: 0 mls/hr Documented By: Admin: 09/16/22 12:33 Dose: 100 mls/hr Documented By: Infusion: 09/15/22 12:51 Dose: 0 mls/hr Documented By: Admin: 09/15/22 12:11 Dose: 100 mls/hr Documented By: Infusion: 09/14/22 12:46 Dose: 0 mls/hr Documented By: Admin: 09/14/22 12:10 Dose: 100 mls/hr Documented By: Infusion: 09/13/22 13:53 Dose: 0 mls/hr Documented By: Admin: 09/13/22 13:18 Dose: 100 mls/hr Documented By: MEGAN Ioversol (Optiray 320 500ml) 111 ml IV ONCE ONE Stop: 09/12/22 15:49 Last Admin: 09/12/22 15:50 Dose: 111 ml Documented By: DMITRI Ipratropium Eagle (Ipratropium [place] Neb Soln 0.02% 2.5 Ml Vial) 0.5 mg NEB QIDR [facility] Stop: 10/12/22 16:59 Last Admin: 09/12/22 17:19 Dose: Not Given Documented By: EMILY Ipratropium Eagle (Ipratropium [place] Neb Soln 0.02% 2.5 Ml Vial) 0.5 mg NEB QIDR [facility] Stop: 10/12/22 18:59 Last Admin: 09/15/22 11:47 Dose: Not Given Documented By: Admin: 09/15/22 07:24 Dose: Not Given Documented By: Admin: 09/14/22 19:36 Dose: Not Given Documented By: Admin: 09/14/22 14:41 Dose: 0.5 mg Documented By: Admin: 09/14/22 11:23 Dose: 0.5 mg Documented By: Admin: 09/14/22 07:14 Dose: 0.5 mg Documented By: Admin: 09/13/22 20:34 Dose: 0.5 mg Documented By: Admin: 09/13/22 14:47 Dose: 0.5 mg Documented By: Admin: 09/13/22 11:03 Dose: 0.5 mg Documented By: Admin: 09/13/22 07:31 Dose: 0.5 mg Documented By: Admin: 09/12/22 19:15 Dose: 0.5 mg Documented By: LORRIE Lactobacillus Acidophilus (Advanced Probiotic 1250 Mg Capsule) 2 cap PO DAILY [facility] Stop: 10/14/22 08:59 Last Admin: 09/14/22 10:34 Dose: 2 cap Documented By: HENNA Levalbuterol HCl (Levalbuterol 1.25mg/0.5ml Neb) 1.25 mg NEB QIDR [facility]; Protocol Stop: 10/12/22 16:59 Last Admin: 09/12/22 17:19 Dose: Not Given Documented By: EMILY Levalbuterol HCl (Levalbuterol Hcl 0.63 Mg/3 Ml Neb) 0.63 mg NEB Q2R PRN; Protocol PRN Reason: Shortness Of Breath Or Wheezing Stop: 10/12/22 16:27 Last Admin: 09/12/22 19:15 Dose: 0.63 mg Documented By: LORRIE Levalbuterol HCl (Levalbuterol 1.25mg/0.5ml Neb) 1.25 mg NEB QIDR [facility]; Protocol Stop: 10/12/22 18:59 Last Admin: 09/15/22 11:47 Dose: Not Given Documented By: Admin: 09/15/22 07:24 Dose: Not Given Documented By: CRYesica Admin: 09/14/22 19:36 Dose: Not Given Documented By: Admin: 09/14/22 14:41 Dose: 1.25 mg Documented By: Admin: 09/14/22 11:23 Dose: 1.25 mg Documented By: Admin: 09/14/22 07:14 Dose: 1.25 mg Documented By: Admin: 09/13/22 20:34 Dose: 1.25 mg Documented By: Admin: 09/13/22 14:47 Dose: 1.25 mg Documented By: Admin: 09/13/22 11:03 Dose: 1.25 mg Documented By: Admin: 09/13/22 07:31 Dose: 1.25 mg Documented By: Admin: 09/12/22 19:15 Dose: Not Given Documented By: LORRIE Prednisone (Prednisone 20 Mg Tab) 20 mg PO DAILY [facility] Stop: 10/13/22 11:59 Last Admin: 09/16/22 08:25 Dose: 20 mg Documented By: Admin: 09/15/22 08:02 Dose: 20 mg Documented By: Admin: 09/14/22 09:05 Dose: 20 mg Documented By: Admin: 09/13/22 13:17 Dose: 20 mg Documented By: MEGAN Tamsulosin HCl (Tamsulosin Hcl 0.4 Mg Cap) [facility] [place] Stop: 10/13/22 08:59 Last Admin: 09/16/22 08:25 Dose: 0.4 mg Documented By: Admin: 09/15/22 08:03 Dose: 0.4 mg Documented By: Admin: 09/14/22 09:06 Dose: 0.4 mg Documented By: Admin: 09/13/22 09:39 Dose: 0.4 mg Documented By: MEGAN Umeclidinium/Vilanterol (Umeclidinium/Vilanterol 62.5/25mcg 7 Puffs/Inhaler) 1 puffs INH DAILY TRUPTI Stop: 10/13/22 11:59 Last Admin: 09/16/22 08:26 Dose: 1 puffs Documented By: Admin: 09/15/22 08:04 Dose: 1 puffs Documented By: Admin: 09/14/22 09:06 Dose: 1 puffs Documented By: Admin: 09/13/22 13:18 Dose: 1 puffs Documented By: HEW Imaging Data Radiologist's Impression: Chest X-Ray 09/12/22 10:50 SINGLE VIEW CHEST CLINICAL HISTORY: Dyspnea. FINDINGS: An AP, portable, upright chest radiograph is compared to study dated 04/28/2022. Correlation is made with chest CT dated 10/06/2006. The examination is degraded by portable technique and patient rotation. The cardiomediastinal s ilhouette is top normal for projection and noting atherosclerotic calcification of the thoracic aorta. Advanced emphysema and chronic interstitial thickening is similar to previous. Foci of probable scarring are seen throughout both lungs. No airspace consolidation or large pleural effusion is identified. No pneumothorax is seen. The skeletal structures are osteopenic. The bony thorax is grossly intact. IMPRESSION: Advanced emphysema with no acute cardiopulmonary abnormality identified. ACT 112: Negative or not required by law. Electronically signed by: Jamie Zapata M.D. 09/12/2022 11:06 AM Blood Pressure Blood Pressure Findings: Low blood pressure Blood Pressure Disposition: further management by hospitalist Discharge Plan Visit Data Chief Complaint: Cough Stated Complaint: COUGH ED Provider: Socorro Felton Discharge Problem: COPD exacerbation, Elevated lactic acid level, Acute hypotension, Tobacco dependence Patient Disposition: Admitted As Inpatient Discharge Instructions Interventions: ED Discharge Assessment Last Done: 09/12/22 15:53
[2022-09-12] MEDS ORDERED: ACETAMINOPHEN 325 MG TAB PO PRN (16:28)
[2022-09-12] MEDS ORDERED: LEVALBUTEROL HCL 0.63 MG/3 ML NEB NEB PRN (16:28)
[2022-09-12] MEDS ORDERED: POLYETHYLENE (MIRALAX) 17 GM PACK PO PRN (16:28)
[2022-09-12] MEDS ORDERED: CEFEPIME 1,000 MG in SYRINGE 0 ML IV SCH (16:28)
[2022-09-12] MEDS ORDERED: ONDANSETRON INJ 2 MG/ML 2 ML VIAL IV PRN (16:28)
--- NOTE | 2022-09-12 16:50 | CT Scan Report ---
CT ANGIOGRAM OF THE CHEST CLINICAL HISTORY: Dyspnea. COMPARISON STUDY: Chest x-ray dated 09/12/2022. Chest CT dated 10/06/2006. TECHNIQUE: Following the IV administration of 111 cc of Optiray 320, CT angiogram of the chest was pe rformed from the upper abdomen to the thoracic inlet utilizing the pulmonary embolus protocol. Images are reviewed in the axial, sagittal, and coronal planes. 3-D MIPS images are created and assessed. I V contrast was administered without complication. A dose lowering technique was utilized adhering to the principles of ALARA. The examination is degraded by motion artifact. CT DOSE: 268.05 mGy.cm FINDINGS: Thyroid: Imaged portions of the thyroid gland are normal in size and attenuation. Thoracic aorta: There is atherosclerotic calcification of the thoracic aorta, which is normal in camacho arthur and demonstrates standard 3-vessel arch anatomy. No dissection is seen. Pulmonary vasculature: The pulmonary trunk is normal in caliber. There are no filling defects identif ied in main, lobar, or segmental pulmonary branches to suggest pulmonary embolus. Heart: The heart is normal in size and without pericardial effusion. Lungs and pleural spaces: Evaluation of the lung parenchyma is degraded by motion artifact. There is advanced emphysema. Mild patchy groundglass consolidation is seen throughout both lungs, most conflue nt in the right middle lobe. No pleural effusion is identified. Foci of parenchymal scarring are seen bilaterally. A 5 mm left upper lobe pulmonary nodule image #178 has increased in size as compared to 2007. Mediastinum: There is no mediastinal lymphadenopathy. Lynda: Clear. Axillae: There is no axillary lymphadenopathy. Upper abdomen: Partially visualized upper abdominal viscera is within normal limits. Skeletal structures: The skeletal structures are osteopenic. No lytic or blastic bony lesions are see n. Soft tissues: The patient is cachectic. IMPRESSION: 1. There is no evidence of pulmonary embolus in the main, lobar, or segmental pulmonary arteries. 2. Advanced emphysema. 3. Mild patchy groundglass consolidation is seen throughout both lungs as above. This likely represen ts an infectious/inflammatory pneumonitis. A follow-up chest CT in 3 months time is recommended to do cument complete resolution. 4. A 5 mm left upper lobe pulmonary nodule has modestly increased in size dating back to 2006. Attent ion at follow-up is recommended. 5. Additional findings as above. ACT 112: Negative or not required by law. Electronically signed by: Jamie Zapata M.D. 09/12/2022 4:47 PM
[2022-09-12] MEDS ORDERED: LEVALBUTEROL 1.25MG/0.5ML NEB NEB SCH (17:00)
[2022-09-12] MEDS ORDERED: IPRATROPIUM BROMIDE NEB SOLN 0.02% 2.5 ML VIAL NEB SCH (17:00)
[2022-09-12] MEDS: SODIUM CHLORIDE 0.9% 1000ML 1,000 ML IV SCH ×2 (17:18→22:46)
[2022-09-12] MEDS: methylPREDNISolone 40 MG in SYRINGE 0 ML IV SCH (17:46)
[2022-09-12] MEDS: LEVALBUTEROL 1.25MG/0.5ML NEB NEB SCH (19:15)
[2022-09-12] MEDS: IPRATROPIUM BROMIDE NEB SOLN 0.02% 2.5 ML VIAL NEB SCH (19:15)
[2022-09-12 20:12] LABS: Adenovirus PCR Not Detected (NotDetected); Bordetella parapertussis PCR Not Detected (NotDetected); Bordetella pertussis PCR Not Detected (NotDetected); Chlamydia pneumoniae PCR Not Detected (NotDetected); Coronavirus 229E PCR Not Detected (NotDetected); Coronavirus CoV-2 (COVID19)PCR Not Detected (NotDetected); Coronavirus HKU1 PCR Not Detected (NotDetected); Coronavirus NL63 PCR Not Detected (NotDetected); Coronavirus OC43PCR Not Detected (NotDetected); Human Metapneumovirus PCR Not Detected (NotDetected); Influenza A PCR Not Detected (NotDetected); Influenza B PCR Not Detected (NotDetected); Mycoplasma pneumoniae PCR Not Detected (NotDetected); Parainfluenza Virus 1 PCR Not Detected (NotDetected); Parainfluenza Virus 2 PCR Not Detected (NotDetected); Parainfluenza Virus 3 PCR Not Detected (NotDetected); Parainfluenza Virus 4 PCR Not Detected (NotDetected); Respiratory Syncytial VirusPCR Not Detected (NotDetected); Rhinovirus/Enterovirus PCR Not Detected (NotDetected)
[2022-09-12] MEDS: DOXYCYCLINE HYCLATE 100 MG CAP PO SCH (20:17)
[2022-09-12] MEDS: CEFEPIME 2,000 MG in SYRINGE 0 ML IV SCH (21:01)
[2022-09-13] MEDS: methylPREDNISolone 40 MG in SYRINGE 0 ML IV SCH ×2 (01:15→09:39)
[2022-09-13] MEDS: SODIUM CHLORIDE 0.9% 1000ML 1,000 ML IV SCH (03:14)
[2022-09-13] MEDS ORDERED: SODIUM CHLORIDE 0.9% 1000ML 1,000 ML IV ONE (04:42)
[2022-09-13] MEDS: CEFEPIME 2,000 MG in SYRINGE 0 ML IV SCH (05:01)
[2022-09-13 06:42] LABS: BUN Creatinine Ratio 23.1 (10-20); Calcium 8.2 mg/dl (8.5-10.1); Creatinine Clr Calc Pharmacy 63.4 ml/min; Est GFR (African American) 103.5 ml/min; Est GFR (Non-African American) 89.3 ml/min; Magnesium 1.8 mg/dl (1.7-2.4); Potassium 4.4 mmol/L (3.5-5.1)
[2022-09-13 06:45] LABS: Basophils # (auto) 0.02 K/uL (0-0.2); Basophils % (auto) 0.2 %; Hematocrit (blood only) 39.1 % (34.1-44.9); Hemoglobin 12.4 g/dl (12.0-16.0); Immature Granulocytes # (auto) 0.03 K/uL (0.00-0.02); Immature Granulocytes % (auto) 0.3 %; Lymphocytes # (auto) 0.33 K/uL (1.2-3.4); Lymphocytes % (auto) 2.9 %; Mean Corpuscular Hemoglobin 30.2 pg (25.0-34.0); Mean Corpuscular Hgb Conc 31.7 g/dL (32.0-36.0); Mean Corpuscular Volume 95.1 fL (80.0-100.0); Monocytes # (auto) 0.54 K/uL (0.24-0.82); Monocytes % (auto) 4.8 %; Neutrophils # (auto) 10.29 K/uL (1.4-6.5); Neutrophils % (auto) 91.8 %; Platelet Count 152 K/uL (130-400); Platelet Estimate Normal (Normal); RDW Coefficient of Variation 14.1 % (11.5-14.5); RDW Standard Deviation 49.6 fL (36.4-46.3); Red Blood Count 4.11 M/uL (3.93-5.22); White Blood Count 11.21 K/ul (4.8-10.8)
[2022-09-13] MEDS: IPRATROPIUM BROMIDE NEB SOLN 0.02% 2.5 ML VIAL NEB SCH ×4 (07:31→20:34)
[2022-09-13] MEDS: LEVALBUTEROL 1.25MG/0.5ML NEB NEB SCH ×4 (07:31→20:34)
[2022-09-13] MEDS ORDERED: FLUTICASONE/VILANTEROL 100/25MCG 14 PUFFS/INHALER INH SCH (09:00)
[2022-09-13] MEDS: DOXYCYCLINE HYCLATE 100 MG CAP PO SCH ×2 (09:39→19:50)
[2022-09-13] MEDS: TAMSULOSIN HCL 0.4 MG CAP PO SCH (09:39)
[2022-09-13] MEDS: FLUTICASONE PROPIONATE NA SPR 16 GM BTL SCH (09:40)
[2022-09-13] MEDS: ENOXAPARIN INJ 30 MG/0.3 ML SYR SQ SCH (09:40)
--- NOTE | 2022-09-13 11:55 | Pulmonary Consultation ---
Date of Consultation September 13, 2022 Assessment & Plan (1) COPD exacerbation: (2) Chronic sinusitis: (3) Cough: (4) Weakness: Plan Impression: 71-year-old female with radiographically apparent COPD and ongoing tobacco abuse admitted with postnasal drip and chronic sinus issues as well as multiple constitutional complaints. CT scan showed patchy airspace opacities and initial lactate was elevated with the patient demonstrating metabolic and respiratory acidosis. Her procalcitonin was elevated. She appears improved this morning. Recommendations: 1. Atypical pneumonia: Patient is currently on cefepime and doxycycline. This can be de-escalated to Rocephin and doxycycline. Would follow procalcitonin in the a.m. to ensure improving. Recheck lactate. 2. COPD: We will discontinue Solu-Medrol and replace with prednisone 20 mg a day. Placed on Anoro. Discontinue Breo. We will need to get case management involved to see whether or not this is a cost effective medication for the patient. Can continue to use nebulized or rescue albuterol on an as-needed basis. 3. Smoking cessation recommended to the patient. She states she has no intention of smoking cessation. She understands risks of progression of lung disease with continued tobacco exposure. 4. Upper airway cough syndrome: Recommend Benadryl, Sudafed, Flonase, and saline sinus irrigation. If fails to respond, imaging of the sinuses might be appropriate. 5. History of Present Illness Attending Physician: Ryley Polanco MD History of Present Illness Asked by hospitalist to evaluate this patient admitted with shortness of breath and weakness. She has had a variety of constitutional symptoms which been evaluated by her primary care provider extensively in the outpatient setting. She has an extensive history of tobacco abuse and continues to smoke at the rate of 1 pack/day. She reportedly has been unable to stand or ambulate and feels dehydrated. She is also had some generalized shaking. She feels significant postnasal drip and sinus complaints. She was recently started on Flonase which she states has been beneficial. The patient has no intention of smoking cessation. She uses albuterol 4 times a day. She was apparently prescribed Advair in the past but was never able to fill the medication due to cost issues. She believes she was given another inhaler which she is waiting for her insurance to fill but she is unclear which inhaler that was. Patient does not use oxygen at home. She was followed by Dr. Sutherland at [facility] in the past. We do not have any records from that evaluation. She is unclear if she is had pulmonary function testing performed previously. Allergies Allergy/AdvReac Type Severity Reaction Status Date / Time fentanyl Allergy Intermediate rash due Verified 02/22/17 18:12 to the patch nickel Allergy Unknown . Verified 02/22/17 18:12 Home Medications Medication Instructions Recorded Confirmed Type acetaminophen 325 mg capsule 325 mg PO Q6H PRN Pain 09/12/22 09/12/22 History (Tylenol) albuterol 90 mcg/actuation aerosol 90 mcg inhalation Q4H PRN 09/12/22 09/12/22 History inhaler Shortness Of Breath Or Wheezing cholecalciferol (vitamin D3) 50 50 mcg PO DAILY 09/12/22 09/12/22 History mcg (2,000 unit) capsule (Vitamin D3) cyanocobalamin (vitamin B-12) 2,500 mcg PO DAILY 09/12/22 09/12/22 History 2,500 mcg tablet fluticasone propionate 50 2 spray intranasal DAILY 09/12/22 09/12/22 History mcg/actuation nasal spray,suspension lisinopril 5 mg PO DAILY 09/12/22 09/12/22 History omega 8-zch-rlo-fish oil 60 mg-90 1 cap PO DAILY 09/12/22 09/12/22 History mg-500 mg capsule (Fish Oil) sennosides 8.6 mg-docusate sodium 2 tab PO DAILY PRN Constipation 09/12/22 09/12/22 History 50 mg tablet (Senokot-S) Patient History Medical History (Updated 09/13/22 @ 11:49 by Bradley Milligan MD) Abnormal colonoscopy Acute dyspnea Carotid arterial disease COPD (chronic obstructive pulmonary disease) COPD exacerbation History of ulcerative colitis Hypertension Lower extremity weakness Osteoporosis Tobacco abuse counseling Tobacco use Surgical History History of appendectomy Family History Sister Cancer Heart disease Social History Smoking Status: Current every day smoker Tobacco Type: Cigarettes Cigarettes Per Day: 1-2 PPD; Second Hand Exposure: No; Tobacco Cessation Education Requested by Patient: No Hx Alcohol Use: No Hx Substance Use: No Preferred Language: Welsh Communication Ability: Effective 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 No additions or deletions Physical Exam Constitutional: WD/WN, vitals as above Neck: trachea midline, no thyromegaly Respiratory: no respiratory distress, no labored breathing, no cough and not tachypneic Auscultation: + diminished lung sounds; no crackles and no wheezes Cardiovascular: RRR, no murmur, no edema Gastrointestinal (Abdomen): normal bowel sounds, soft, nontender, no hepatosplenomegaly Musculoskeletal: Extremities: extremities normal to inspection Skin: no rashes, warm and dry Neurologic: Nonfocal exam Lymphatic: no cervical lymphadenopathy Results & Data Results & Data ([facility]) Vital Signs (Past 12 Hours) Vital Signs Temp Pulse Pulse Resp BP BP Pulse Ox 09/13/22 11:43 36.9 C 97 H 20 124/74 91 09/13/22 08:00 80 09/13/22 08:00 09/13/22 11:04 92 H 16 91 09/13/22 07:31 74 18 91 09/13/22 07:20 36.9 C 93 H 19 149/89 H 108/57 L 94 09/13/22 04:37 36.6 C 96 H 20 170/89 H 120/81 94 O2 Del Method O2 Flow Rate 09/13/22 11:43 Room Air 09/13/22 08:00 09/13/22 08:00 Room Air 09/13/22 11:04 Room Air 09/13/22 07:31 Nasal Cannula 1 09/13/22 07:20 Nasal Cannula 1 09/13/22 04:37 Nasal Cannula 1 Critical Care Results & Data Vital Signs (Past 12 Hours) Vital Signs Temp Pulse Pulse Resp BP BP Pulse Ox 09/13/22 11:43 36.9 C 97 H 20 124/74 91 09/13/22 08:00 80 09/13/22 08:00 09/13/22 11:04 92 H 16 91 09/13/22 07:31 74 18 91 09/13/22 07:20 36.9 C 93 H 19 149/89 H 108/57 L 94 09/13/22 04:37 36.6 C 96 H 20 170/89 H 120/81 94 O2 Del Method O2 Flow Rate 09/13/22 11:43 Room Air 09/13/22 08:00 09/13/22 08:00 Room Air 09/13/22 11:04 Room Air 09/13/22 07:31 Nasal Cannula 1 09/13/22 07:20 Nasal Cannula 1 09/13/22 04:37 Nasal Cannula 1 Lab & Micro Results (Past 24 Hours) RBC 4.11 M/uL (3.93-5.22) 09/13/22 WBC 11.21 K/ul (4.8-10.8) H 09/13/22 Hgb 12.4 g/dl (12.0-16.0) 09/13/22 Hct 39.1 % (34.1-44.9) 09/13/22 MCV 95.1 fL (80.0-100.0) 09/13/22 MCH 30.2 pg (25.0-34.0) 09/13/22 MCHC 31.7 g/dL (32.0-36.0) L 09/13/22 RDW Standard Deviation 49.6 fL (36.4-46.3) H 09/13/22 RDW Coefficient of Variation 14.1 % (11.5-14.5) 09/13/22 Plt Count 152 K/uL (130-400) 09/13/22 MPV 11.0 fL (9.4-12.3) 09/13/22 Neutrophils (%) (Auto) 91.8 % 09/13/22 Lymphocytes (%) (Auto) 2.9 % 09/13/22 Monocytes # (Auto) 0.54 K/uL (0.24-0.82) 09/13/22 Eosinophils # (Auto) 0.00 K/uL (0-0.50) 09/13/22 Immature Granulocyte % (Auto) 0.3 % 09/13/22 Neutrophils # (Auto) 10.29 K/uL (1.4-6.5) H 09/13/22 Lymphocytes # (Auto) 0.33 K/uL (1.2-3.4) L 09/13/22 Monocytes # (Auto) 0.54 K/uL (0.24-0.82) 09/13/22 Eosinophils # (Auto) 0.00 K/uL (0-0.50) 09/13/22 Basophils # (Auto) 0.02 K/uL (0-0.2) 09/13/22 Immature Granulocyte # (Auto) 0.03 K/uL (0.00-0.02) H 09/13 Na 141 mmol/L (136-145) 09/13/22 K 4.4 mmol/L (3.5-5.1) 09/13/22 Cl 113 mmol/L (98-107) H 09/13/22 CO2 22 mmol/L (21-32) 09/13/22 Anion Gap 6 (3-11) 09/13/22 BUN 15 mg/dl (6-23) 09/13/22 Creatinine 0.65 mg/dl (0.6-1.2) 09/13/22 Estimated GFR ( Amer) 103.5 ml/min 09/13/22 Estimated GFR (Non-Af Amer) 89.3 ml/min 09/13/22 BUN/Creatinine Ratio 23.1 (10-20) H 09/13/22 Glu 118 mg/dl (70-99(Fasting)) H 09/13/22 Ca 8.2 mg/dl (8.5-10.1) L 09/13/22 Lactate Dehydrogenase 137 U/L (86-244) 09/13/22 Mg 1.8 mg/dl (1.7-2.4) 09/13/22 05:33 Calcium Level 8.2 mg/dl (8.5-10.1) L 09/13/22 05:33 Venous Blood pH 7.24 (7.36-7.41) L 09/12/22 15:19 Venous Blood Partial Pressure CO2 46 mmHg (38-50) 09/12/22 15:1 9 Venous Blood Partial Pressure O2 45 mmHg 09/12/22 15:19 Venous Blood HCO3 20 mmol/L 09/12/22 15:19 Venous Blood Base Excess -7.7 mEq/L 09/12/22 15:19 Venous Blood Oxygen Saturation 72.8 % 09/12/22 15:19 Diagnostic Findings (Past 24 Hours) Chest CTA 09/12/22 15:21 CT ANGIOGRAM OF THE CHEST CLINICAL HISTORY: Dyspnea. COMPARISON STUDY: Chest x-ray dated 09/12/2022. Chest CT dated 10/06/2006. TECHNIQUE: Following the IV administration of 111 cc of Optiray 320, CT angiogram of the chest was performed from the upper abdomen to the thoracic inlet utilizing the pulmonary embolus protocol. Images are reviewed in the axial, sagittal, and coronal planes. 3-D MIPS images are created and assessed. IV contrast was administered without complication. A dose lowering technique was utilized adhering to the principles of ALARA. The examination is degraded by motion artifact. CT DOSE: 268.05 mGy.cm FINDINGS: Thyroid: Imaged portions of the thyroid gland are normal in size and attenuation. Thoracic aorta: There is atherosclerotic calcification of the thoracic aorta, which is normal in caliber and demonstrates standard 3-vessel arch anatomy. No dissection is seen. Pulmonary vasculature: The pulmonary trunk is normal in caliber. There are no filling defects identified in main, lobar, or segmental pulmonary branches to suggest pulmonary embolus. Heart: The heart is normal in size and without pericardial effusion. Lungs and pleural spaces: Evaluation of the lung parenchyma is degraded by motion artifact. There is advanced emphysema. Mild patchy groundglass consolidation is seen throughout both lungs, most confluent in the right middle lobe. No pleural effusion is identified. Foci of parenchymal scarring are seen bilaterally. A 5 mm left upper lobe pulmonary nodule image #178 has increased in size as compared to 2007. Mediastinum: There is no mediastinal lymphadenopathy. Lynda: Clear. Axillae: There is no axillary lymphadenopathy. Upper abdomen: Partially visualized upper abdominal viscera is within normal limits. Skeletal structures: The skeletal structures are osteopenic. No lytic or blastic bony lesions are seen. Soft tissues: The patient is cachectic. IMPRESSION: 1. There is no evidence of pulmonary embolus in the main, lobar, or segmental pulmonary arteries. 2. Advanced emphysema. 3. Mild patchy groundglass consolidation is seen throughout both lungs as above. This likely represents an infectious/inflammatory pneumonitis. A follow-up chest CT in 3 months time is recommended to document complete resolution. 4. A 5 mm left upper lobe pulmonary nodule has modestly increased in size dating back to 2006. Attention at follow-up is recommended. 5. Additional findings as above. ACT 112: Negative or not required by law. Electronically signed by: Jamie Zapata M.D. 09/12/2022 4:47 PM I & O Totals 24 Hours 09/12/22 09/13/22 09/14/22 06:59 06:59 06:59 Intake Total 5403.333 / 5403.333 599.667 / 599.667 Output Total 400 / 400 1000 / 1000 Balance 5003.333 / 5003.333 -400.333 / -400.333 Cumulative 09/12/22 10:18 thru 09/13/22 11:03 Intake Total 6003.000 Output Total 1400 Balance 4603.000 RT Ventilator Mngmt (Last Documented) Ventilator Ordered Settings Respiratory Rate 20 09/13/22 11:43 Ventilator - PT Measurements Respiratory Rate 20 PG Care Time/CCT Total # of Minutes Spent Total Time Spent with Patient: Total time spent is greater than 50% in coordination of care (as documented) at patient's floor/unit and/or counseling patient: Coding Level of Care Code 77228 Initial Inpt Care Lvl 3 Diagnoses COPD exacerbation J44.1 Chronic sinusitis J32.9 Cough R05.9 Weakness R53.1
[2022-09-13] MEDS: predniSONE 20 MG TAB PO SCH (13:17)
[2022-09-13] MEDS: UMECLIDINIUM/VILANTEROL 62.5/25MCG 7 PUFFS/INHALER INH SCH (13:18)
[2022-09-13] MEDS: cefTRIAXone SODIUM 1,000 MG in DEXTROSE 5% AD-VAN 50 ML IV SCH (13:18)
--- NOTE | 2022-09-13 15:54 | Hospitalist Progress Note ---
Date of Service September 13, 2022 Assessment & Plan (1) COPD exacerbation: Plan: Acute Respiratory failure with hypoxia: Acute on Chronic COPD Exacerbation H/O noncompliance with Advair Diskus use (Due to Cost) Ongoing tobacco use disorder CTA:There is no evidence of pulmonary embolus in the main, lobar, or segmental pulmonary arteries. Advanced emphysema. Mild patchy groundglass consolidation is seen throughout both lungs as above. This likely represents an infectious/inflammatory pneumonitis. A follow-up chest CT in 3 months time is recommended to document complete resolution. A 5 mm left upper lobe pulmonary nodule has modestly increased in size dating back to 2006. Attention at follow- up is recommended. RSV, influenza, COVID screen negative Procalcitonin Continue IV solu-medrol>> transition to prednisone 20 mg daily Continue bronchodilators Oxygen support per protocol--to keep sats 88 to 92% Appreciate Pulmonology Input Pulmonary Hygiene Atypical pneumonia-POA Sepsis-POA Lactic Acidosis resolved Blood, urine cultures: Negative to date Biofire Negative Received IV fluids Continue ceftriaxone, doxycycline Urinary retention Bladder scan as needed Straight cath X 1 today Will consider Casillas catheter if needed Started on tamsulosin Hypomagnesemia Replace electrolytes as needed Monitor Tobacco use disorder 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 Refuses nicotine patch Severe protein calorie malnutrition Dietitian consulted Ulcerative colitis Currently not on any medications Hypertension Hold lisinopril secondary to hypotension Monitor BP DVT Px: Lovenox SQ Code Status DNI/DNR: As per my discussion with patient and patient's son at bedside Admission and Anticipated Discharge Date Admission Date: September 12, 2022 Subjective Patient is seen and examined at bedside States feeling better today Less cough, dyspnea today Denies any chest pain, dizziness, nausea, abdominal pain RN noticed patient to have urinary retention Review of Systems Review of Systems: All systems reviewed & are unremarkable except as noted in Subjective Physical Exam Physical Exam: Physical Exam: Vitals signs as noted above General Appearance: Thin, frail, chronically appearing, mild respiratory distress Head: normocephalic, Atraumatic Eyes: normal inspection, EOMI Neck: supple, Trachea midline Respiratory/Chest: Decreased breath sounds, CTA Cardiovascular: S1, S2, No murmur, +Tachycardic Abdomen/GI:Soft, Non tender, Bowel sounds present Extremities/Musculoskeletal:normal inspection, no edema Neurologic/Psych:AAOX3, grossly no focal neurological deficits Skin: normal color, warm Results & Data Results & Data ([facility]) Vital Signs (Past 12 Hours) Vital Signs Temp Pulse Pulse Resp BP BP Pulse Ox 09/13/22 15:26 36.8 C 100 H 20 108/68 89 L 09/13/22 14:48 100 H 18 90 09/13/22 11:43 36.9 C 97 H 20 124/74 91 09/13/22 08:00 80 09/13/22 08:00 09/13/22 11:04 92 H 16 91 09/13/22 07:31 74 18 91 09/13/22 07:20 36.9 C 93 H 19 149/89 H 108/57 L 94 09/13/22 04:37 36.6 C 96 H 20 170/89 H 120/81 94 O2 Del Method O2 Flow Rate 09/13/22 15:26 Room Air 09/13/22 14:48 Room Air 09/13/22 11:43 Room Air 09/13/22 08:00 09/13/22 08:00 Room Air 09/13/22 11:04 Room Air 09/13/22 07:31 Nasal Cannula 1 09/13/22 07:20 Nasal Cannula 1 09/13/22 04:37 Nasal Cannula 1 Laboratory Results Short CBC 09/13/22 Range/Units 05:33 WBC 11.21 H (4.8-10.8) K/ul Hgb 12.4 (12.0-16.0) g/dl Hct 39.1 (34.1-44.9) % Plt Count 152 (130-400) K/uL BMP 09/13/22 05:33 Sodium 141 Potassium 4.4 Chloride 113 H Carbon Dioxide 22 BUN 15 Creatinine 0.65 Glucose 118 H Calcium 8.2 L
--- NOTE | 2022-09-13 22:13 | Electrocardiogram Report ---
Test Reason : Blood Pressure : / mmHG Vent. Rate : 117 BPM Atrial Rate : 117 BPM P-R Int : 138 ms QRS Dur : 068 ms QT Int : 302 ms P-R-T Axes : 083 079 082 degrees QTc Int : 421 ms Poor data quality, interpretation may be adversely affected Sinus tachycardia with Premature atrial complexes Right atrial enlargement Left ventricular hypertrophy with repolarization abnormality Cannot rule out Septal infarct (cited on or before 12-SEP-2022) Abnormal ECG When compared with ECG of 27-APR-2022 10:36, Premature atrial complexes are now Present Confirmed by Lane Ellis ([id number]) on 09/13/2022 10:13:32 PM Referred By: REFERRED SELF Confirmed By:Lane Ellis
--- NOTE | 2022-09-14 05:58 | Electrocardiogram Report ---
Test Reason : Blood Pressure : / mmHG Vent. Rate : 091 BPM Atrial Rate : 091 BPM P-R Int : 156 ms QRS Dur : 076 ms QT Int : 306 ms P-R-T Axes : 066 063 013 degrees QTc Int : 376 ms Poor data quality, interpretation may be adversely affected Normal sinus rhythm Minimal voltage criteria for LVH, may be normal variant Anterior infarct (cited on or before 12-SEP-2022) Abnormal ECG When compared with ECG of 12-SEP-2022 10:45, (unconfirmed) Premature atrial complexes are no longer Present Non-specific change in ST segment in Lateral leads Confirmed by Lane Ellis ([id number]) on 09/14/2022 5:58:05 AM Referred By: REFERRED SELF Confirmed By:Lane Ellis
[2022-09-14 06:44] LABS: Basophils # (auto) 0.03 K/uL (0-0.2); Basophils % (auto) 0.2 %; Hematocrit (blood only) 42.2 % (34.1-44.9); Hemoglobin 13.6 g/dl (12.0-16.0); Immature Granulocytes # (auto) 0.12 K/uL (0.00-0.02); Immature Granulocytes % (auto) 0.8 %; Lymphocytes % (auto) 4.9 %; Mean Corpuscular Hemoglobin 30.2 pg (25.0-34.0); Mean Corpuscular Hgb Conc 32.2 g/dL (32.0-36.0); Mean Corpuscular Volume 93.8 fL (80.0-100.0); Mean Platelet Volume 9.8 fL (9.4-12.3); Monocytes # (auto) 0.97 K/uL (0.24-0.82); Monocytes % (auto) 6.8 %; Neutrophils % (auto) 87.3 %; Nucleated RBC # (auto) 0.02 K/uL (0-0); Nucleated RBC % (auto) 0.1 %; Platelet Count 250 K/uL (130-400); RDW Coefficient of Variation 14.2 % (11.5-14.5); RDW Standard Deviation 49.1 fL (36.4-46.3); White Blood Count 14.22 K/ul (4.8-10.8)
[2022-09-14] MEDS: LEVALBUTEROL 1.25MG/0.5ML NEB NEB SCH ×4 (07:14→19:36)
[2022-09-14] MEDS: IPRATROPIUM BROMIDE NEB SOLN 0.02% 2.5 ML VIAL NEB SCH ×4 (07:14→19:36)
[2022-09-14 07:26] LABS: BUN Creatinine Ratio 39.2 (10-20); Calcium 9.3 mg/dl (8.5-10.1); Est GFR (African American) 94.5 ml/min; Est GFR (Non-African American) 81.5 ml/min; Magnesium 1.8 mg/dl (1.7-2.4); Potassium 4.2 mmol/L (3.5-5.1)
--- NOTE | 2022-09-14 08:14 | Pulmonology Progress Note ---
Date of Service September 14, 2022 Assessment & Plan (1) COPD exacerbation: (2) Chronic sinusitis: (3) Cough: (4) Pulmonary nodule: (5) Abnormal chest CT: (6) Multifocal pneumonia: Plan Impression: 71-year-old female with radiographically apparent COPD and ongoing tobacco abuse admitted with postnasal drip and chronic sinus issues as well as multiple constitutional complaints. CT scan showed patchy airspace opacities. Her procalcitonin was elevated. She appears improved this morning. CT chest 09/12/2022 personally reviewed: Centrilobular paraseptal emphysema appreciated bilaterally Bilateral apical pleural scarring more on the right side, left upper lobe 5 mm pulmonary nodule, patchy opacities appreciated bilaterally especially in the right middle lobe Note significant mediastinal lymphadenopathy -- Multilobar pneumonia Continue with antibiotics for total of 7 days Procalcitonin 0.88 COVID-19 PCR negative, influenza A/B negative Respiratory bio fire negative -- COPD with acute exacerbation Likely from pneumonia Continue with bronchodilators -- Left upper lobe pulmonary nodule [address] chest in 6 to 12 months -- Active smoker Importance of quitting explained to the patient in depth -- Chronic cough Likely secondary to upper airway cough syndrome --History of ulcerative colitis Not on any medications right now Plan: Completed the course of antibiotics for 7 days Patient is complaining of coughing with Anoro. We will give another 24 hours to see how she does with it. If she still complaining of significant cough then would recommend to transition it to nebulized Brovana and Yupelri instead. If patient has persistent urine retention then would recommend continuing LAMA inhaler Continue with prednisone 20 mg for 3 more days and then stop. Recommend 2 step prior to discharge for oxygen requirement on exertion We will get case management to see which inhalers will be covered by patient's insurance. Case discussed with Dr. Polanco Please note the above document was generated using voice recognition software. It may contain grammatical, syntax or spelling errors.Any formal questions or concerns about the content, text or information contained within the body of this dictation should be directly addressed to the provider for clarification. Admission and Anticipated Discharge Date Admission Date: September 12, 2022 Subjective Patient seen and examined at bedside. No acute distress, no adverse events overnight Case discussed with outgoing per assessment nurse Overall patient is feeling better when it comes to her breathing Patient was saturating 89-90% on room air with heart rate of 100 at the time of examination She still complains of cough which is mostly clear. Denies any chest pain Generalized body ache has improved. Fair appetite, no nausea or vomiting Review of Systems Review of Systems: All systems reviewed & are unremarkable except as noted in Subjective Physical Exam Physical Exam: Constitutional: No acute distress, frail-appearing HEENT: EOMI, PERRLA Respiratory system: Decreased air entry bilaterally, no wheeze, no rhonchi, no crackles CVS: S1-S2 positive, no murmurs or gallops Abdomen: Soft, nontender, nondistended, positive bowel sounds x4 Extremities: +2 pulses bilaterally radialis/ dorsalis pedis, no cyanosis, no edema Neuro: Awake alert oriented x3 Psych: Normal mood and affect G/U: No Casillas Skin: no rashes, warm and dry Lymphatic: no cervical or axillary lymphadenopathy Results & Data Results & Data ([facility]) Vital Signs (Past 12 Hours) Vital Signs Temp Pulse Pulse Resp BP Pulse Ox O2 Del Method 09/14/22 07:14 85 18 95 Room Air 09/14/22 00:34 87 09/13/22 22:35 36.7 C 97 H 19 120/71 92 Room Air 09/13/22 20:34 102 H 18 94 Room Air Laboratory Results 09/14/22 06:27 09/14/22 06:27 PG Care Time/CCT Total # of Minutes Spent Total Time Spent with Patient: Total time spent is greater than 50% in coordination of care (as documented) at patient's floor/unit and/or counseling patient: Coding Level of Care Code 77695 Subseq Hosp Care Lvl 3 Diagnoses COPD exacerbation J44.1 Chronic sinusitis J32.9 Cough R05.9 Pulmonary nodule R91.[address] R93.89 Multifocal pneumonia J18.9
[2022-09-14] MEDS ORDERED: ADVANCED PROBIOTIC 1250 MG CAPSULE PO SCH (09:00)
[2022-09-14] MEDS: DOXYCYCLINE HYCLATE 100 MG CAP PO SCH ×2 (09:04→21:44)
[2022-09-14] MEDS: FLUTICASONE PROPIONATE NA SPR 16 GM BTL SCH (09:05)
[2022-09-14] MEDS: predniSONE 20 MG TAB PO SCH (09:05)
[2022-09-14] MEDS: ENOXAPARIN INJ 30 MG/0.3 ML SYR SQ SCH (09:05)
[2022-09-14] MEDS: UMECLIDINIUM/VILANTEROL 62.5/25MCG 7 PUFFS/INHALER INH SCH (09:06)
[2022-09-14] MEDS: TAMSULOSIN HCL 0.4 MG CAP PO SCH (09:06)
[2022-09-14] MEDS ORDERED: DOCUSATE SODIUM 100 MG CAP PO PRN (11:17)
[2022-09-14] MEDS: cefTRIAXone SODIUM 1,000 MG in DEXTROSE 5% AD-VAN 50 ML IV SCH (12:10)
--- NOTE | 2022-09-14 16:36 | Hospitalist Progress Note ---
Date of Service September 14, 2022 Assessment & Plan (1) COPD exacerbation: Plan: Acute Respiratory failure with hypoxia: Acute on Chronic COPD Exacerbation H/O noncompliance with Advair Diskus use (Due to Cost) Ongoing tobacco use disorder CTA:There is no evidence of pulmonary embolus in the main, lobar, or segmental pulmonary arteries. Advanced emphysema. Mild patchy groundglass consolidation is seen throughout both lungs as above. This likely represents an infectious/inflammatory pneumonitis. A follow-up chest CT in 3 months time is recommended to document complete resolution. A 5 mm left upper lobe pulmonary nodule has modestly increased in size dating back to 2006. Attention at follow- up is recommended. RSV, influenza, COVID screen negative Procalcitonin Continue IV solu-medrol>> transition to prednisone 20 mg daily Continue bronchodilators Oxygen support per protocol--to keep sats 88 to 92% Appreciate Pulmonology Input Continue Pulmonary Hygiene Clinically improving Atypical pneumonia-POA Sepsis-POA Lactic Acidosis resolved Blood, urine cultures: Negative to date Biofire Negative Received IV fluids Continue ceftriaxone, doxycycline Plan to complete 7-day course of antibiotics Urinary retention Bladder scan as needed Straight cath X 1 today Casillas catheter if needed Continue tamsulosin Hypomagnesemia Replace electrolytes as needed Monitor Tobacco use disorder Smokes about 1 pack/day [employer] to quit smoking Refuses nicotine patch Patient currently not interested to quit smoking Severe protein calorie malnutrition Dietitian consulted Ulcerative colitis Currently not on any medications Hypertension Hold lisinopril secondary to hypotension Monitor BP DVT Px: Lovenox SQ Code Status DNI/DNR: As per my discussion with patient and patient's son at bedside Admission and Anticipated Discharge Date Admission Date: September 12, 2022 Subjective Patient is seen and examined at bedside Denies cough, dyspnea today Reports intermittent dizziness Denies any chest pain, dizziness, nausea, abdominal pain Review of Systems Review of Systems: All systems reviewed & are unremarkable except as noted in Subjective Physical Exam Physical Exam: Physical Exam: Vitals signs as noted above General Appearance: Thin, frail, chronically appearing, mild respiratory distress Head: normocephalic, Atraumatic Eyes: normal inspection, EOMI Neck: supple, Trachea midline Respiratory/Chest: Decreased breath sounds, CTA Cardiovascular: S1, S2, No murmur Abdomen/GI:Soft, Non tender, Bowel sounds present Extremities/Musculoskeletal:normal inspection, no edema Neurologic/Psych:AAOX3, grossly no focal neurological deficits Skin: normal color, warm Results & Data Results & Data ([facility]) Vital Signs (Past 12 Hours) Vital Signs Temp Pulse Pulse Resp BP BP Pulse Ox 09/14/22 15:21 36.7 C 97 H 19 114/70 87/60 L 92 09/14/22 15:12 105 H 09/14/22 14:41 101 H 18 91 09/14/22 12:16 36.6 C 85 19 149/79 H 96/60 L 97 09/14/22 11:23 89 18 94 09/14/22 10:02 09/14/22 09:35 76 09/14/22 09:02 129/88 93/63 L 09/14/22 07:38 36.8 C 81 19 152/81 H 96 09/14/22 07:14 85 18 95 O2 Del Method 09/14/22 15:21 Room Air 09/14/22 15:12 09/14/22 14:41 Room Air 09/14/22 12:16 Room Air 09/14/22 11:23 Room Air 09/14/22 10:02 Room Air 09/14/22 09:35 09/14/22 09:02 09/14/22 07:38 Room Air 09/14/22 07:14 Room Air Laboratory Results Short CBC 09/14/22 Range/Units 06:27 WBC 14.22 H (4.8-10.8) K/ul Hgb 13.6 (12.0-16.0) g/dl Hct 42.2 (34.1-44.9) % Plt Count 250 D (130-400) K/uL BMP 09/14/22 06:27 Sodium 139 Potassium 4.2 Chloride 107 Carbon Dioxide 26 BUN 29 H Creatinine 0.74 Glucose 96 Calcium 9.3
[2022-09-15 06:52] LABS: Basophils # (auto) 0.08 K/uL (0-0.2); Basophils % (auto) 0.5 %; Eosinophils # (auto) 0.01 K/uL (0-0.50); Eosinophils % (auto) 0.1 %; Hemoglobin 13.6 g/dl (12.0-16.0); Immature Granulocytes # (auto) 0.41 K/uL (0.00-0.02); Immature Granulocytes % (auto) 2.7 %; Lymphocytes # (auto) 1.48 K/uL (1.2-3.4); Lymphocytes % (auto) 9.8 %; Mean Corpuscular Hgb Conc 33.2 g/dL (32.0-36.0); Mean Corpuscular Volume 90.5 fL (80.0-100.0); Mean Platelet Volume 9.6 fL (9.4-12.3); Monocytes # (auto) 1.12 K/uL (0.24-0.82); Monocytes % (auto) 7.4 %; Neutrophils # (auto) 11.95 K/uL (1.4-6.5); Neutrophils % (auto) 79.5 %; Nucleated RBC # (auto) 0.02 K/uL (0-0); Nucleated RBC % (auto) 0.1 %; Platelet Count 257 K/uL (130-400); RDW Coefficient of Variation 13.8 % (11.5-14.5); RDW Standard Deviation 46.5 fL (36.4-46.3); Red Blood Count 4.53 M/uL (3.93-5.22); White Blood Count 15.05 K/ul (4.8-10.8)
[2022-09-15 07:15] LABS: BUN Creatinine Ratio 30.9 (10-20); Calcium 8.9 mg/dl (8.5-10.1); Creatinine Clr Calc Pharmacy 49.5 ml/min; Est GFR (African American) 84.7 ml/min; Est GFR (Non-African American) 73.1 ml/min; Potassium 3.6 mmol/L (3.5-5.1)
[2022-09-15] MEDS: IPRATROPIUM BROMIDE NEB SOLN 0.02% 2.5 ML VIAL NEB SCH ×2 (07:24→11:47)
[2022-09-15] MEDS: LEVALBUTEROL 1.25MG/0.5ML NEB NEB SCH ×2 (07:24→11:47)
[2022-09-15] MEDS: predniSONE 20 MG TAB PO SCH (08:02)
[2022-09-15] MEDS: ENOXAPARIN INJ 30 MG/0.3 ML SYR SQ SCH (08:02)
[2022-09-15] MEDS: TAMSULOSIN HCL 0.4 MG CAP PO SCH (08:03)
[2022-09-15] MEDS: DOXYCYCLINE HYCLATE 100 MG CAP PO SCH ×2 (08:03→20:12)
[2022-09-15] MEDS: FLUTICASONE PROPIONATE NA SPR 16 GM BTL SCH (08:03)
[2022-09-15] MEDS: UMECLIDINIUM/VILANTEROL 62.5/25MCG 7 PUFFS/INHALER INH SCH (08:04)
--- NOTE | 2022-09-15 09:24 | Pulmonology Progress Note ---
Date of Service September 15, 2022 Assessment & Plan (1) COPD exacerbation: (2) Chronic sinusitis: (3) Cough: (4) Pulmonary nodule: (5) Abnormal chest CT: (6) Multifocal pneumonia: Plan Impression: 71-year-old female with radiographically apparent COPD and ongoing tobacco abuse admitted with postnasal drip and chronic sinus issues as well as multiple constitutional complaints. CT scan showed patchy airspace opacities. Her procalcitonin was elevated. She appears improved this morning. CT chest 09/12/2022 personally reviewed: Centrilobular paraseptal emphysema appreciated bilaterally Bilateral apical pleural scarring more on the right side, left upper lobe 5 mm pulmonary nodule, patchy opacities appreciated bilaterally especially in the right middle lobe Note significant mediastinal lymphadenopathy -- Multilobar pneumonia Continue with antibiotics for total of 7 days Procalcitonin 0.88 COVID-19 PCR negative, influenza A/B negative Respiratory bio fire negative -- COPD with acute exacerbation Likely from pneumonia Continue with bronchodilators -- Left upper lobe pulmonary nodule [address] chest in 6 to 12 months -- Active smoker Importance of quitting explained to the patient in depth -- Chronic cough Likely secondary to upper airway cough syndrome --History of ulcerative colitis Not on any medications right now Plan: Continue with prednisone for 2 more days and then stop Patient is tolerating inhaler Anoro. Would recommend to continue with the same Case discussed with Dr. Polanco Please note the above document was generated using voice recognition software. It may contain grammatical, syntax or spelling errors.Any formal questions or concerns about the content, text or information contained within the body of this dictation should be directly addressed to the provider for clarification. Admission and Anticipated Discharge Date Admission Date: September 12, 2022 Subjective Patient seen and examined at bedside. No acute distress, no adverse events overnight. Overall her breathing has significantly improved. Still complains of occasional runny nose which is clear. Coughing up clear phlegm. Denies any hemoptysis. Was saturating 99% on room air at the time of examination. Fair appetite, no nausea vomiting Review of Systems Review of Systems: All systems reviewed & are unremarkable except as noted in Subjective Physical Exam Physical Exam: Constitutional: No acute distress, frail-appearing HEENT: EOMI, PERRLA Respiratory system: Decreased air entry bilaterally, no wheeze, no rhonchi, no crackles CVS: S1-S2 positive, no murmurs or gallops Abdomen: Soft, nontender, nondistended, positive bowel sounds x4 Extremities: +2 pulses bilaterally radialis/ dorsalis pedis, no cyanosis, no edema Neuro: Awake alert oriented x3 Psych: Normal mood and affect G/U: No Casillas Skin: no rashes, warm and dry Lymphatic: no cervical or axillary lymphadenopathy Results & Data Results & Data ([facility]) Vital Signs (Past 12 Hours) Vital Signs Temp Pulse Pulse Resp BP BP Pulse Ox 09/15/22 07:00 87 09/15/22 07:07 36.6 C 78 18 81/33 L 121/79 96 09/15/22 04:13 82 09/15/22 02:23 36.4 C L 76 20 105/74 92 09/14/22 23:22 36.8 C 85 18 152/81 H 103/72 92 09/14/22 22:02 O2 Del Method 09/15/22 07:00 09/15/22 07:07 Room Air 09/15/22 04:13 09/15/22 02:23 Room Air 09/14/22 23:22 Room Air 09/14/22 22:02 Room Air Laboratory Results 09/15/22 06:15 09/15/22 06:15 PG Care Time/CCT Total # of Minutes Spent Total Time Spent with Patient: Total time spent is greater than 50% in coordination of care (as documented) at patient's floor/unit and/or counseling patient: Coding Level of Care Code 27623 Subseq Hosp Care Lvl 2 Diagnoses COPD exacerbation J44.1 Chronic sinusitis J32.9 Cough R05.9 Pulmonary nodule R91.[address] R93.89 Multifocal pneumonia J18.9
[2022-09-15 10:01] LABS: Magnesium 1.7 mg/dl (1.7-2.4)
[2022-09-15] MEDS ORDERED: IPRATROPIUM BROMIDE NEB SOLN 0.02% 2.5 ML VIAL NEB PRN (11:50)
[2022-09-15] MEDS ORDERED: LEVALBUTEROL 1.25MG/0.5ML NEB NEB PRN (11:50)
[2022-09-15] MEDS: cefTRIAXone SODIUM 1,000 MG in DEXTROSE 5% AD-VAN 50 ML IV SCH (12:11)
--- NOTE | 2022-09-15 16:23 | Hospitalist Progress Note ---
Date of Service September 15, 2022 Assessment & Plan (1) COPD exacerbation: Plan: Acute Respiratory failure with hypoxia: Acute on Chronic COPD Exacerbation H/O noncompliance with Advair Diskus use (Due to Cost) Ongoing tobacco use disorder CTA:There is no evidence of pulmonary embolus in the main, lobar, or segmental pulmonary arteries. Advanced emphysema. Mild patchy groundglass consolidation is seen throughout both lungs as above. This likely represents an infectious/inflammatory pneumonitis. A follow-up chest CT in 3 months time is recommended to document complete resolution. A 5 mm left upper lobe pulmonary nodule has modestly increased in size dating back to 2006. Attention at follow- up is recommended. RSV, influenza, COVID screen negative Procalcitonin 0.88 Continue IV solu-medrol>> transition to prednisone 20 mg daily Continue bronchodilators Appreciate Pulmonology Input Continue Pulmonary Hygiene Weaned off of supplemental oxygen Saturating well on room air Likely plan to discharge tomorrow if remains stable Atypical pneumonia-POA Sepsis-POA Lactic Acidosis resolved Blood, urine cultures: Negative to date Biofire Negative Received IV fluids Continue ceftriaxone, doxycycline Plan to complete 7-day course of antibiotics Urinary retention Bladder scan as needed Casillas catheter if needed Continue tamsulosin Urology follow-up as outpatient Hypomagnesemia Replace electrolytes as needed Monitor Tobacco use disorder 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 Refuses nicotine patch Patient currently not interested to quit smoking Severe protein calorie malnutrition Dietitian consulted Ulcerative colitis Currently not on any medications Hypertension Hold lisinopril secondary to hypotension Monitor BP DVT Px: Lovenox SQ Code Status DNI/DNR: As per my discussion with patient and patient's son at bedside Admission and Anticipated Discharge Date Admission Date: September 12, 2022 Subjective Patient is seen and examined at bedside Doing well today Cough, dyspnea much improved Intermittent rhinitis Denies any chest pain, dizziness, nausea, abdominal pain Discussed with pulmonology today Dizziness resolved Review of Systems Review of Systems: All systems reviewed & are unremarkable except as noted in Subjective Physical Exam Physical Exam: Physical Exam: Vitals signs as noted above General Appearance: Thin, frail, chronically appearing, mild respiratory distress Head: normocephalic, Atraumatic Eyes: normal inspection, EOMI Neck: supple, Trachea midline Respiratory/Chest: Decreased breath sounds, CTA Cardiovascular: S1, S2, No murmur Abdomen/GI:Soft, Non tender, Bowel sounds present Extremities/Musculoskeletal:normal inspection, no edema Neurologic/Psych:AAOX3, grossly no focal neurological deficits Skin: normal color, warm Results & Data Results & Data ([facility]) Vital Signs (Past 12 Hours) Vital Signs Temp Pulse Pulse Resp BP BP Pulse Ox 09/15/22 16:00 09/15/22 16:10 98 H 09/15/22 15:23 36.8 C 104 H 16 101/65 94 09/15/22 11:43 36.7 C 87 19 150/82 H 119/75 94 09/15/22 08:00 09/15/22 07:00 87 09/15/22 07:07 36.6 C 78 18 81/33 L 121/79 96 Pulse Ox O2 Del Method O2 Del Method 09/15/22 16:00 94 Room Air 09/15/22 16:10 09/15/22 15:23 Room Air 09/15/22 11:43 Room Air 09/15/22 08:00 Room Air 09/15/22 07:00 09/15/22 07:07 Room Air Laboratory Results Short CBC 09/15/22 Range/Units 06:15 WBC 15.05 H (4.8-10.8) K/ul Hgb 13.6 (12.0-16.0) g/dl Hct 41.0 (34.1-44.9) % Plt Count 257 (130-400) K/uL BMP 09/15/22 06:15 Sodium 140 Potassium 3.6 Chloride 105 Carbon Dioxide 27 BUN 25 H Creatinine 0.81 Glucose 82 Calcium 8.9
[2022-09-16 07:11] LABS: Basophils # (auto) 0.01 K/uL (0-0.2); Basophils % (auto) 0.1 %; Eosinophils # (auto) 0.04 K/uL (0-0.50); Eosinophils % (auto) 0.3 %; Hematocrit (blood only) 42.2 % (34.1-44.9); Hemoglobin 14.2 g/dl (12.0-16.0); Immature Granulocytes # (auto) 0.83 K/uL (0.00-0.02); Immature Granulocytes % (auto) 7.1 %; Lymphocytes # (auto) 2.14 K/uL (1.2-3.4); Lymphocytes % (auto) 18.3 %; Mean Corpuscular Hemoglobin 30.5 pg (25.0-34.0); Mean Corpuscular Hgb Conc 33.6 g/dL (32.0-36.0); Mean Corpuscular Volume 90.6 fL (80.0-100.0); Mean Platelet Volume 9.3 fL (9.4-12.3); Monocytes # (auto) 1.08 K/uL (0.24-0.82); Monocytes % (auto) 9.2 %; Neutrophils # (auto) 7.62 K/uL (1.4-6.5); Platelet Count 263 K/uL (130-400); RDW Coefficient of Variation 13.9 % (11.5-14.5); RDW Standard Deviation 46.4 fL (36.4-46.3); Red Blood Count 4.66 M/uL (3.93-5.22); White Blood Count 11.72 K/ul (4.8-10.8)
[2022-09-16 07:22] LABS: BUN Creatinine Ratio 27.7 (10-20); Calcium 8.6 mg/dl (8.5-10.1); Creatinine Clr Calc Pharmacy 39.4 ml/min; Est GFR (African American) 70.7 ml/min; Magnesium 1.7 mg/dl (1.7-2.4); Potassium 3.9 mmol/L (3.5-5.1)
--- NOTE | 2022-09-16 07:54 | Pulmonology Progress Note ---
Date of Service September 16, 2022 Assessment & Plan (1) COPD exacerbation: (2) Chronic sinusitis: (3) Cough: (4) Pulmonary nodule: (5) Abnormal chest CT: (6) Multifocal pneumonia: Plan Impression: 71-year-old female with radiographically apparent COPD and ongoing tobacco abuse admitted with postnasal drip and chronic sinus issues as well as multiple constitutional complaints. CT scan showed patchy airspace opacities. Her procalcitonin was elevated. She appears improved this morning. CT chest 09/12/2022 personally reviewed: Centrilobular paraseptal emphysema appreciated bilaterally Bilateral apical pleural scarring more on the right side, left upper lobe 5 mm pulmonary nodule, patchy opacities appreciated bilaterally especially in the right middle lobe Note significant mediastinal lymphadenopathy -- Multilobar pneumonia Continue with antibiotics for total of 7 days Procalcitonin 0.88 COVID-19 PCR negative, influenza A/B negative Respiratory bio fire negative -- COPD with acute exacerbation Likely from pneumonia Continue with bronchodilators -- Left upper lobe pulmonary nodule [address] chest in 6 to 12 months -- Active smoker Importance of quitting explained to the patient in depth -- Chronic cough Likely secondary to upper airway cough syndrome --History of ulcerative colitis Not on any medications right now Plan: Patient should be discharged on Anoro inhaler to be used on a daily basis along with as needed albuterol Flonase along with [id number] antihistamine for chronic allergic rhinitis Outpatient pulmonary follow-up Complete the course of antibiotic CT chest in 6 to 12 months for follow-up on the pulmonary nodule No further recommendation from pulmonary perspective, will sign off Please call directly with any questions Please note the above document was generated using voice recognition software. It may contain grammatical, syntax or spelling errors.Any formal questions or concerns about the content, text or information contained within the body of this dictation should be directly addressed to the provider for clarification. Admission and Anticipated Discharge Date Admission Date: September 12, 2022 Subjective Patient seen and examined at bedside. No acute distress, no adverse events overnight. Overall she is feeling much better. Shortness of breath is significantly improv ed Denies any headache, no nausea or vomiting, fair appetite Saturation was 95% on room air Coughing up clear phlegm. Review of Systems Review of Systems: All systems reviewed & are unremarkable except as noted in Subjective Physical Exam Physical Exam: Constitutional: No acute distress, frail-appearing HEENT: EOMI, PERRLA Respiratory system: Decreased air entry bilaterally, no wheeze, no rhonchi, no crackles CVS: S1-S2 positive, no murmurs or gallops Abdomen: Soft, nontender, nondistended, positive bowel sounds x4 Extremities: +2 pulses bilaterally radialis/ dorsalis pedis, no cyanosis, no edema Neuro: Awake alert oriented x3 Psych: Normal mood and affect G/U: No Casillas Skin: no rashes, warm and dry Lymphatic: no cervical or axillary lymphadenopathy Results & Data Results & Data ([facility]) Vital Signs (Past 12 Hours) Vital Signs Temp Pulse Pulse Resp BP Pulse Ox O2 Del Method 09/16/22 03:54 36.7 C 70 16 103/71 94 Room Air 09/15/22 22:30 92 H 09/15/22 22:44 36.4 C L 73 16 117/77 95 Room Air Laboratory Results 09/16/22 06:37 09/16/22 06:37 PG Care Time/CCT Total # of Minutes Spent Total Time Spent with Patient: Total time spent is greater than 50% in coordination of care (as documented) at patient's floor/unit and/or counseling patient: Coding Level of Care Code 48138 Subseq Hosp Care Lvl 2 Diagnoses COPD exacerbation J44.1 Chronic sinusitis J32.9 Cough R05.9 Pulmonary nodule R91.[address] R93.89 Multifocal pneumonia J18.9
[2022-09-16] MEDS: DOXYCYCLINE HYCLATE 100 MG CAP PO SCH (08:25)
[2022-09-16] MEDS: ENOXAPARIN INJ 30 MG/0.3 ML SYR SQ SCH (08:25)
[2022-09-16] MEDS: TAMSULOSIN HCL 0.4 MG CAP PO SCH (08:25)
[2022-09-16] MEDS: predniSONE 20 MG TAB PO SCH (08:25)
[2022-09-16] MEDS: FLUTICASONE PROPIONATE NA SPR 16 GM BTL SCH (08:26)
[2022-09-16] MEDS: UMECLIDINIUM/VILANTEROL 62.5/25MCG 7 PUFFS/INHALER INH SCH (08:26)
--- NOTE | 2022-09-16 11:31 | Hospitalist Progress Note ---
Date of Service September 16, 2022 Assessment & Plan (1) COPD exacerbation: Plan: Acute Respiratory failure with hypoxia: Acute on Chronic COPD Exacerbation H/O noncompliance with Advair Diskus use (Due to Cost) Ongoing tobacco use disorder CTA:There is no evidence of pulmonary embolus in the main, lobar, or segmental pulmonary arteries. Advanced emphysema. Mild patchy groundglass consolidation is seen throughout both lungs as above. This likely represents an infectious/inflammatory pneumonitis. A follow-up chest CT in 3 months time is recommended to document complete resolution. A 5 mm left upper lobe pulmonary nodule has modestly increased in size dating back to 2006. Attention at follow- up is recommended. RSV, influenza, COVID screen negative Procalcitonin 0.88 Continue IV solu-medrol>> transition to prednisone 20 mg daily Continue bronchodilators Appreciate Pulmonology Input Continue Pulmonary Hygiene Weaned off of supplemental oxygen Saturating well on room air Plan to discharge home today Atypical pneumonia-POA Sepsis-POA Lactic Acidosis resolved Blood, urine cultures: Negative to date Biofire Negative Received IV fluids Continue ceftriaxone, doxycycline> change to PO abx upon discharge Plan to complete 7-day course of antibiotics Urinary retention Bladder scan as needed Casillas catheter if needed Continue tamsulosin Urology follow-up as outpatient Left upper lobe pulmonary nodule Needs repeat CT in 6 to 12 months Hypomagnesemia Replace electrolytes as needed Monitor Tobacco use disorder Smokes about 1 pack/day [employer] to quit smoking Refuses nicotine patch Patient currently not interested to quit smoking Severe protein calorie malnutrition Dietitian consulted Ulcerative colitis Currently not on any medications Hypertension Hold lisinopril secondary to hypotension Monitor BP DVT Px: Lovenox SQ Code Status DNI/DNR Disposition Home Admission and Anticipated Discharge Date Admission Date: September 12, 2022 Subjective Patient is seen and examined at bedside No new complaints Plan to be discharged home today Cough continues to improve Dyspnea resolved Denies any chest pain, dizziness, nausea, abdominal pain, dizziness Review of Systems Review of Systems: All systems reviewed & are unremarkable except as noted in Subjective Physical Exam Physical Exam: Physical Exam: Vitals signs as noted above General Appearance: Thin, frail, chronically appearing, mild respiratory distress Head: normocephalic, Atraumatic Eyes: normal inspection, EOMI Neck: supple, Trachea midline Respiratory/Chest: Decreased breath sounds, CTA Cardiovascular: S1, S2, No murmur Abdomen/GI:Soft, Non tender, Bowel sounds present Extremities/Musculoskeletal:normal inspection, no edema Neurologic/Psych:AAOX3, grossly no focal neurological deficits Skin: normal color, warm Results & Data Results & Data ([facility]) Vital Signs (Past 12 Hours) Vital Signs Temp Pulse Pulse Resp BP Pulse Ox O2 Del Method 09/16/22 09:00 Room Air 09/16/22 08:00 84 09/16/22 08:44 37.0 C 66 18 119/66 95 Room Air 09/16/22 03:54 36.7 C 70 16 103/71 94 Room Air Laboratory Results Short CBC 09/16/22 Range/Units 06:37 WBC 11.72 H (4.8-10.8) K/ul Hgb 14.2 (12.0-16.0) g/dl Hct 42.2 (34.1-44.9) % Plt Count 263 (130-400) K/uL BMP 09/16/22 06:37 Sodium 142 Potassium 3.9 Chloride 105 Carbon Dioxide 33 H BUN 26 H Creatinine 0.94 Glucose 86 Calcium 8.6
--- NOTE | 2022-09-16 11:49 | Discharge Summary ---
Date of Service September 16, 2022 Admission HPI Per Admitting Provider Patient is a 71-year-old female with history of COPD, ulcerative colitis, ongoing tobacco use disorder, osteoporosis, hypertension and other medical problems presents with history of worsening shortness of breath, generalized weakness and generalized body ache since 2 days duration. Patient states that she usually ambulates without any assistance but currently is unable to stand up or ambulate. She feels that she is dehydrated and has been using Pedialyte at home. She also states having generalized "shakiness". Reports having cough with whitish expectoration and has runny nose. Uses Flonase which temporarily helps with symptoms. Also reports having dizziness and generalized weakness. Her appetite has been very poor. She has not been using her Advair Diskus secondary to the cost. She admits to smoking 1 pack/day. She has been using her home albuterol inhaler more frequently since last 2 days. She is not on any supplemental oxygen at home. Denies any history of chest pain, palpitations, pedal edema, hemoptysis, fever, chills, fall, chest trauma, change in vision, nausea, vomiting, abdominal pain, blood in stools, diarrhea, dysuria, hematuria, recent travel, sick contact, recent change in medications. Admission Exam Per Admitting Provider Physical Exam Physical Exam: Physical Exam: Vitals signs as noted above General Appearance: Thin, frail, chronically appearing, mild respiratory distress Head: normocephalic, Atraumatic Eyes: normal inspection, EOMI Neck: supple, Trachea midline Respiratory/Chest: Decreased breath sounds, scant wheezes, + accessory muscle use Cardiovascular: S1, S2, No murmur, +Tachycardic Abdomen/GI:Soft, Non tender, Bowel sounds present Extremities/Musculoskeletal:normal inspection, no edema Neurologic/Psych:AAOX3, grossly no focal neurological deficits Skin: normal color, warm Principal Diagnosis Acute Respiratory failure with hypoxia Acute COPD Exacerbation Atypical pneumonia Sepsis Urinary retention Tobacco use disorder Left upper lobe pulmonary nodule Discharge Data Allergies Allergy/AdvReac Type Severity Reaction Status Date / Time fentanyl Allergy Intermediate rash due Verified 02/22/17 18:12 to the patch nickel Allergy Unknown . Verified 02/22/17 18:12 Consultations 09/12/22 14:17 ED Decision to Admit Stat 09/12/22 16:28 Consult Pulmonology Routine Procedures Performed Laboratory Results WBC 11.72 K/ul (4.8-10.8) H 09/16/22 06:37 RBC 4.66 M/uL (3.93-5.22) 09/16/22 06:37 Hgb 14.2 g/dl (12.0-16.0) 09/16/22 06:37 Hct 42.2 % (34.1-44.9) 09/16/22 06:37 MCV 90.6 fL (80.0-100.0) 09/16/22 06:37 MCH 30.5 pg (25.0-34.0) 09/16/22 06:37 MCHC 33.6 g/dL (32.0-36.0) 09/16/22 06:37 RDW Std Deviation 46.4 fL (36.4-46.3) H 09/16/22 06:37 RDW Coeff of Haja 13.9 % (11.5-14.5) 09/16/22 06:37 Plt Count 263 K/uL (130-400) 09/16/22 06:37 MPV 9.3 fL (9.4-12.3) L 09/16/22 06:37 Immature Gran % (Auto) 7.1 % 09/16/22 06:37 Neut % (Auto) 65.0 % 09/16/22 06:37 Lymph % (Auto) 18.3 % 09/16/22 06:37 [place] % (Auto) 9.2 % 09/16/22 06:37 Eos % (Auto) 0.3 % 09/16/22 06:37 Baso % (Auto) 0.1 % 09/16/22 06:37 Neut # (Auto) 7.62 K/uL (1.4-6.5) H 09/16/22 06:37 Lymph # (Auto) 2.14 K/uL (1.2-3.4) 09/16/22 06:37 [place] # (Auto) 1.08 K/uL (0.24-0.82) H 09/16/22 06:37 Eos # (Auto) 0.04 K/uL (0-0.50) 09/16/22 06:37 Baso # (Auto) 0.01 K/uL (0-0.2) 09/16/22 06:37 Immature Gran # (Auto) 0.83 K/uL (0.00-0.02) H 09/16/22 06:37 Absolute Nucleated RBC 0.02 K/uL (0-0) H 09/15/22 06:15 Nucleated RBC % (auto) 0.1 % 09/15/22 06:15 Platelet Estimate Normal (Normal) 09/13/22 05:33 VBG pH 7.24 (7.36-7.41) L 09/12/22 15:19 VBG pCO2 46 mmHg (38-50) 09/12/22 15:19 VBG pO2 45 mmHg 09/12/22 15:19 VBG HCO3 20 mmol/L 09/12/22 15:19 VBG O2 Saturation 72.8 % 09/12/22 15:19 VBG Base Excess -7.7 mEq/L 09/12/22 15:19 Sodium 142 mmol/L (136-145) 09/16/22 06:37 Potassium 3.9 mmol/L (3.5-5.1) 09/16/22 06:37 Chloride 105 mmol/L (98-107) 09/16/22 06:37 Carbon Dioxide 33 mmol/L (21-32) H 09/16/22 06:37 Anion Gap 4 (3-11) 09/16/22 06:37 BUN 26 mg/dl (6-23) H 09/16/22 06:37 Creatinine 0.94 mg/dl (0.6-1.2) 09/16/22 06:37 Est Cr Clr Drug Dosing 39.4 ml/min 09/16/22 06:37 Est GFR ( Amer) 70.7 ml/min 09/16/22 06:37 Est GFR (Non-Af Amer) 61.0 ml/min 09/16/22 06:37 BUN/Creatinine Ratio 27.7 (10-20) H 09/16/22 06:37 Glucose 86 mg/dl (70-99(Fasting)) 09/16/22 06:37 Lactate 1.1 mmol/L (0.4-2.0) 09/13/22 12:06 Calcium 8.6 mg/dl (8.5-10.1) 09/16/22 06:37 Magnesium 1.7 mg/dl (1.7-2.4) 09/16/22 06:37 Total Bilirubin 0.5 mg/dl (0.2-1.0) 09/12/22 10:46 AST 16 U/L (13-39) 09/12/22 10:46 ALT 15 U/L (7-52) 09/12/22 10:46 Alkaline Phosphatase 67 U/L (34-104) 09/12/22 10:46 Lactate Dehydrogenase 137 U/L (86-244) 09/13/22 05:33 Troponin I High Sens 13.9 pg/ml (0-14) 09/12/22 10:46 Total Protein 7.5 gm/dl (6.0-8.3) 09/12/22 10:46 Albumin 3.7 gm/dl (3.4-5.0) 09/12/22 10:46 Globulin 3.8 gm/dl (2.5-4.0) 09/12/22 10:46 Albumin/Globulin Ratio 1.0 (0.9-2) 09/12/22 10:46 Procalcitonin 0.88 ng/ml (0-0.5) H 09/14/22 06:27 Urine Color Dark Yellow 09/12/22 13:57 Urine Appearance Clear (Clear) 09/12/22 13:57 Urine pH 5.5 (4.5-7.5) 09/12/22 13:57 Ur Specific [place] 1.029 (1.000-1.030) 09/12/22 13:57 Urine Protein 3+ (Negative) H 09/12/22 13:57 Urine Glucose (UA) Negative (Negative) 09/12/22 13:57 Urine Ketones 3+ (Negative) H 09/12/22 13:57 Urine Blood 2+ (Negative) H 09/12/22 13:57 Urine Nitrite Negative (Negative) 09/12/22 13:57 Urine Bilirubin Negative (Negative) 09/12/22 13:57 Urine Urobilinogen Negative (Negative) 09/12/22 13:57 Ur Leukocyte Esterase Negative (Negative) 09/12/22 13:57 Urine WBC (Auto) 1-5 /hpf (0-5) 09/12/22 13:57 Urine RBC (Auto) 0-4 /hpf (0-4) 09/12/22 13:57 U Hyaline Cast (Auto) 10-30 /lpf (0-5) H 09/12/22 13:57 U Epithel Cells (Auto) >30 /lpf (0-5) H 09/12/22 13:57 Urine Bacteria (Auto) Negative (Negative) 09/12/22 13:57 Ur Renal Epithelial Cell Not Reportable 09/12/22 13:57 Urine Yeast Present (None Prsent) A 09/12/22 13:57 Adenovirus (PCR) Not Detected (NotDetected) 09/12/22 17:43 B. pertussis DNA (PCR) Not Detected (NotDetected) 09/12/22 17:43 B.parapertussis DNA PCR Not Detected (NotDetected) 09/12/22 17:43 C. pneumoniae DNA (PCR) Not Detected (NotDetected) 09/12/22 17:43 Coronavirus OC43 (PCR) Not Detected (NotDetected) 09/12/22 17:43 Coronavirus HKU1 (PCR) Not Detected (NotDetected) 09/12/22 17:43 Coronavirus 229E (PCR) Not Detected (NotDetected) 09/12/22 17:43 SARS-CoV-2 (PCR) Not Detected (NotDetected) 09/12/22 17:43 Coronavirus NL63 (PCR) Not Detected (NotDetected) 09/12/22 17:43 Human Metapneumovir PCR Not Detected (NotDetected) 09/12/22 17:43 Influenza Type A (PCR) Not Detected (NotDetected) 09/12/22 17:43 Influenza Type B (PCR) Not Detected (NotDetected) 09/12/22 17:43 M. pneumoniae (PCR) Not Detected (NotDetected) 09/12/22 17:43 Parainfluenza 1 (PCR) Not Detected (NotDetected) 09/12/22 17:43 Parainfluenza 2 (PCR) Not Detected (NotDetected) 09/12/22 17:43 Parainfluenza 3 (PCR) Not Detected (NotDetected) 09/12/22 17:43 Parainfluenza 4 (PCR) Not Detected (NotDetected) 09/12/22 17:43 RSV (RT-PCR) Negative (Neg) 09/12/22 10:24 RSV (PCR) Not Detected (NotDetected) 09/12/22 17:43 Entero/Rhino (PCR) Not Detected (NotDetected) 09/12/22 17:43 Impressions Chest X-Ray 09/12/22 10:50 SINGLE VIEW CHEST CLINICAL HISTORY: Dyspnea. FINDINGS: An AP, portable, upright chest radiograph is compared to study dated 04/28/2022. Correlation is made with chest CT dated 10/06/2006. The examination is degraded by portable technique and patient rotation. The cardiomediastinal silhouette is top normal for projection and noting atherosclerotic calcification of the thoracic aorta. Advanced emphysema and chronic interstitial thickening is similar to previous. Foci of probable scarring are seen throughout both lungs. No airspace consolidation or large pleural effusion is identified. No pneumothorax is seen. The skeletal structures are osteopenic. The bony thorax is grossly intact. IMPRESSION: Advanced emphysema with no acute cardiopulmonary abnormality identified. ACT 112: Negative or not required by law. Electronically signed by: Jamie Zapata M.D. 09/12/2022 11:06 AM Chest CTA 09/12/22 15:21 CT ANGIOGRAM OF THE CHEST CLINICAL HISTORY: Dyspnea. COMPARISON STUDY: Chest x-ray dated 09/12/2022. Chest CT dated 10/06/2006. TECHNIQUE: Following the IV administration of 111 cc of Optiray 320, CT angiogram of the chest was performed from the upper abdomen to the thoracic inlet utilizing the pulmonary embolus protocol. Images are reviewed in the axial, sagittal, and coronal planes. 3-D MIPS images are created and assessed. IV contrast was administered without complication. A dose lowering technique was utilized adhering to the principles of ALARA. The examination is degraded by motion artifact. CT DOSE: 268.05 mGy.cm FINDINGS: Thyroid: Imaged portions of the thyroid gland are normal in size and attenuation. Thoracic aorta: There is atherosclerotic calcification of the thoracic aorta, which is normal in caliber and demonstrates standard 3-vessel arch anatomy. No dissection is seen. Pulmonary vasculature: The pulmonary trunk is normal in caliber. There are no filling defects identified in main, lobar, or segmental pulmonary branches to suggest pulmonary embolus. Heart: The heart is normal in size and without pericardial effusion. Lungs and pleural spaces: Evaluation of the lung parenchyma is degraded by motion artifact. There is advanced emphysema. Mild patchy groundglass consolidation is seen throughout both lungs, most confluent in the right middle lobe. No pleural effusion is identified. Foci of parenchymal scarring are seen bilaterally. A 5 mm left upper lobe pulmonary nodule image #178 has increased in size as compared to 2007. Mediastinum: There is no mediastinal lymphadenopathy. Lynda: Clear. Axillae: There is no axillary lymphadenopathy. Upper abdomen: Partially visualized upper abdominal viscera is within normal limits. Skeletal structures: The skeletal structures are osteopenic. No lytic or blastic bony lesions are seen. Soft tissues: The patient is cachectic. IMPRESSION: 1. There is no evidence of pulmonary embolus in the main, lobar, or segmental pulmonary arteries. 2. Advanced emphysema. 3. Mild patchy groundglass consolidation is seen throughout both lungs as above. This likely represents an infectious/inflammatory pneumonitis. A follow-up chest CT in 3 months time is recommended to document complete resolution. 4. A 5 mm left upper lobe pulmonary nodule has modestly increased in size dating back to 2006. Attention at follow-up is recommended. 5. Additional findings as above. ACT 112: Negative or not required by law. Electronically signed by: Jamie Zapata M.D. 09/12/2022 4:47 PM Ordered Studies 09/12/22 15:21 CT angio chest PE protocol Urgent Hospital Course (1) COPD exacerbation: Acute Respiratory failure with hypoxia: Acute on Chronic COPD Exacerbation H/O noncompliance with Advair Diskus use (Due to Cost) Ongoing tobacco use disorder CTA:There is no evidence of pulmonary embolus in the main, lobar, or segmental pulmonary arteries. Advanced emphysema. Mild patchy groundglass consolidation is seen throughout both lungs as above. This likely represents an infectious/inflammatory pneumonitis. A follow-up chest CT in 3 months time is recommended to document complete resolution. A 5 mm left upper lobe pulmonary nodule has modestly increased in size dating back to 2006. Attention at follow- up is recommended. RSV, influenza, COVID screen negative Procalcitonin 0.88 Continue IV solu-medrol>> transition to prednisone 20 mg daily Continue bronchodilators Appreciate Pulmonology Input Continue Pulmonary Hygiene Weaned off of supplemental oxygen Saturating well on room air Plan to discharge home today Atypical pneumonia-POA Sepsis-POA Lactic Acidosis resolved Blood, urine cultures: Negative to date Biofire Negative Received IV fluids Continue ceftriaxone, doxycycline> change to PO abx upon discharge Plan to complete 7-day course of antibiotics Urinary retention Bladder scan as needed [place] catheter if needed Continue tamsulosin Urology follow-up as outpatient Left upper lobe pulmonary nodule Needs repeat CT in 6 to 12 months Hypomagnesemia Replace electrolytes as needed Monitor Tobacco use disorder Smokes about 1 pack/day Palletizer to quit smoking Refuses nicotine patch Patient currently not interested to quit smoking Severe protein calorie malnutrition Dietitian consulted Ulcerative colitis Currently not on any medications Hypertension Hold lisinopril secondary to hypotension Monitor BP DVT Px: Lovenox SQ Code Status DNI/DNR Disposition Home Total Time Total Time Spent Total Time Spent (In Minutes): 54 minutes Discharge Plan Discharge Items Patient Disposition: Home - Self-Care Reason For Visit: COPD EXACERBATION Discharge Diagnosis: Acute Respiratory failure with hypoxia Acute COPD Exacerbation Atypical pneumonia Sepsis Urinary retention Tobacco use disorder Left upper lobe pulmonary nodule Activity: Per Instructions section Exercise/Sports: Wait until after follow-up appointment Non-emergency contact: Primary Care Provider, [facility] Urologist Call non-emergency contact if: you have any medication questions, your symptoms worsen, your pain is concerning for you and you have a fever Follow-up/Referrals: Michael Meza DO [Primary Care Provider] - (Date & Time 09/25/2022 1:40 PM Provider Michael Meza DO Department [facility] ) Diet: Regular Addtl Attending Provider Instructions: --Follow-up with your primary care physician on 09/25/2022 1:40 PM --Follow up your pairer in 3-4 weeks as advised --Consider following with your urologist for evaluation of urinary retention. --- Complete antibiotic (cefuroxime, doxycycline) and prednisone course as prescribed. --- You are incidentally noted to have a lung nodule on CT scan. Advised to get repeat CT in 6 to 12 months and follow-up with your pairer for further recommendations. --Quit smoking tobacco as advised --- Your blood pressure medication lisinopril is discontinued secondary to low blood pressure while you are hospitalized. Monitor your blood pressure regularly as advised. Discuss with your physician for further adjustment of medications as needed. Seek immediate medical attention if your symptoms reoccur or worsen Please take all medications as instructed on discharge list below. Please call if you have any questions or problems. You can reach a [facility] hospitalist on duty at [facility] 24 hours a day by calling [phone] Pending Studies at Discharge: No Stand-Alone Forms: My [facility] Health, Smoking Cessation Medications and DC Order Prescriptions: New doxycycline hyclate 100 mg Capsule 100 mg PO BID Qty: 6 0RF tamsulosin 0.4 mg Capsule 0.4 mg PO QAM Qty: 30 0RF Anoro Ellipta 62.5-25 mcg/actuation Blister With Device 1 inh inhalation DAILY Qty: 60 1RF prednisone 20 mg Tablet 20 mg PO DAILY Qty: 2 0RF cefdinir 300 mg capsule 300 mg PO BID 3 Days Qty: 6 0RF fluticasone propionate [Flonase Allergy Relief] 50 mcg/actuation spray,suspension 1 spray intranasal DAILY PRN (Reason: allergy symptoms) Qty: 16 0RF Rx Instructions: administer into each nostril levocetirizine 5 mg tablet 5 mg PO DAILY PRN (Reason: allergy symptoms) Qty: 10 0RF Continued sennosides-docusate sodium [Senokot-S] 8.6-50 mg Tablet 2 tab PO DAILY PRN (Reason: Constipation) albuterol 90 mcg/actuation Aerosol 90 mcg INHALATION Q4H PRN (Reason: Shortness Of Breath Or Wheezing) fluticasone propionate [Flonase] 50 mcg/actuation [place],Suspension 2 spray INTRANASAL DAILY acetaminophen [Tylenol] 325 mg Capsule 325 mg PO Q6H PRN (Reason: Pain) cholecalciferol (vitamin D3) [Vitamin D3] 50 mcg (2,000 unit) Capsule 50 mcg PO DAILY omega 5-kso-dec-fish oil [Fish Oil] 60-90-500 mg Capsule 1 cap PO DAILY cyanocobalamin (vitamin B-12) 2,500 mcg Tablet 2,500 mcg PO DAILY Discontinued lisinopril 5 mg PO DAILY Discharge Orders: Discharge Order (Routine); Ordered 09/16/22 Ordered By: Ryley Polanco Admission Data Admit Date/Time: 09/12/22 15:14 Attending Provider: Ryley Polanco Admit Provider: Ryley Polanco Primary Care Provider: Michael Meza Other Providers: Ryley Polanco ; Bradley Milligan
[2022-09-16] MEDS: cefTRIAXone SODIUM 1,000 MG in DEXTROSE 5% AD-VAN 50 ML IV SCH (12:33)
== END 2022-09-16 13:35 | disposition home or self-care (01) | DRG 871 ==
LOC: ED 10:18 → 2S 15:14